=== PATIENT | female | born 1965 | race Caucasian/White ===

== ENCOUNTER → 2017-09-12 08:21 | Outpatient (CLI) | payer OTHER, SELFPAY ==
--- NOTE | 2017-09-12 08:24 | BI_ITS ---
MAMMOGRAPHY - BILATERAL SCREENING 3-D SHAWN SYNTHESIS REASON FOR EXAM: Female, 51 years old. Bilateral Screening 3-D tomosynthesis PERTINENT HISTORY: No significant family history. TECHNIQUE: 2-D mammograms and 3-D Shawn synthesis of the breast (s) were performed. CAD was performed. COMPARISON: February 12, 2016. FINDINGS: The breast composition is composed of scattered fibroglandular density. No dense spiculated masses or suspicious clustered microcalcifications are identified. No architectural distortion is identified. There is no skin thickening or retraction. There has been no significant change since the prior study. BI/SCREENING MAMM (CAD), BILAT IMPRESSION: No mammographic signs of malignancy. Routine yearly mammograms recommended. ASSESSMENT CATEGORY: BIRADS Category 1: Negative. A letter regarding these results will be sent to the patient by the facility within 30 days. FOLLOW UP RECOMMENDATION: Yearly follow up mammogram recommended. (A) Approximately 10% of breast cancers are not detected by mammography. A normal mammogram should not delay biopsy of a clinically suspicious abnormality. Electronically Signed: Tian Sun MD at 9:58 EDT , Service support ,
== END ==
PROVIDERS: Family Provider Student in an Organized Health Care Education/Training Program; PCP Student in an Organized Health Care Education/Training Program; Visit Provider Student in an Organized Health Care Education/Training Program
DX: Z12.31 Encounter for screening mammogram for malignant neoplasm of breast (principal)
CPT/HCPCS: 77063; 77067

== ENCOUNTER 2018-01-19 21:50 | Emergency (ER) | payer OTHER, SELFPAY ==
[2018-01-19 21:51] VITALS: BP 137/72; PULSE 73; RESP 15; TEMP 35.9; O2SAT 98; BMI 31.6
[2018-01-19] MEDS: Nitrofurantoin Macrocrystals 100 MG Capsule PO (22:23)
[2018-01-19] MEDS: Ibuprofen 600 MG Tablet PO (22:23)
[2018-01-19 22:38] LABS: Mucous, Urine 0 SEEN /hpf (<or=2+)
[2018-01-19 22:42] LABS: Color, Urine Amber (Yellow); Glucose, Dipstick Normal (Normal); Ketone-Dipstick 5 mg/dl (Negative); Leukocyte Esterase-Dipstick 500 /ul (Negative); Nitrite-Dipstick Negative (Negative); Occult Blood-Urine 250 /ul (Negative); Protein-Dipstick 100 mg/dl (Negative); Specific Gravity, Urine 1.025 (1.002-1.030); Urine Clarity Cloudy (Clear); Urine Urobilinogen 1 mg/dl (Normal); Urine pH 6.5 (5.0 - 8.0)
[2018-01-19 22:45] LABS: Urine Bilirubin Dipstick 1 mg/dL (Negative)
[2018-01-19 22:53] LABS: Bacteria RARE /hpf (None Seen); Red Blood Cells-Urine > 100 SEEN /hpf (0-5); Squamous Epithelial Cells - UA 0-5 SEEN /hpf (5-10); White Blood Cells >100 SEEN /hpf (0-5)
--- NOTE | 2018-01-19 23:13 | ED.VISSUMM ---
- ER Visit Summary Date of Service: 01/19/18 Chief Complaint: UTI History of Present Illness: The patient is a 52 F with GI symptoms that started this evening. Patient reports suprapubic pain, dysuria, hematuria, and frequency. She attributes it to decreased oral fluid intake today. She had similar symptoms in the past with UTIs. She is not currently on antibiotics. She denies fever or systemic symptoms. No other associated symptoms like back pain. Denies vaginal bleeding or discharge. Physical Examination: Afebrile and vital signs unremarkable. Patient appears uncomfortable but not toxic or in distress. Heart regular. Lungs clear. Abdomen is tender in the suprapubic region. Back and CVAs are nontender. Skin appears normal. Test Results: Urinalysis shows elevated leukocyte esterase, elevated white cells and elevated red cells, both over 100. Culture pending. Patient declined hCG testing. Emergency Department Course and Treatment: Patient treated with Macrobid and Motrin while awaiting results. Urinalysis does suggest infection. Culture pending. I advised the patient that there are other causes of hematuria. Patient does not have pain or symptoms consistent with a kidney stone. I advised that we will treat with Macrobid. Follow-up with primary care to check culture results. She will need to document resolution of her symptoms and findings. I advised the patient that if her hematuria persists, she will need a further outpatient evaluation. Patient will return for any new or worsening issues. Return if unable to take her medications. Return for signs and symptoms of sepsis. Treatment Plan: As above Disposition: Discharged Impression: 1. UTI, cystitis This note was generated with [employer] dictation software. It may contain incorrect words, spelling, and punctuation that were not noted in review of the chart prior to signing ED Disposition - Plan for ED Patient: Chief Complaint: Complaint Referrals: Gurdeep Jackson DO [Primary Care Provider] -
--- NOTE | 2018-01-19 23:17 | ED.DEP ---
ED Disposition - Plan for ED Patient: Chief Complaint: Complaint Instructions: ED UTI Cystitis Female Prescriptions: Nitrofurantoin Macrocrystals [Macrobid] 100 mg PO Q12 #14 cap Referrals: Gurdeep Jackson DO [Primary Care Provider] -
== END 2018-01-19 23:26 | disposition home or self-care (01) ==
LOC: ED 22:22
PROVIDERS: Emergency Provider Emergency Medicine; Family Provider Student in an Organized Health Care Education/Training Program; PCP Student in an Organized Health Care Education/Training Program
DX: N30.91 Cystitis, unspecified with hematuria (principal); K21.9 Gastro-esophageal reflux disease without esophagitis; Z79.899 Other long term (current) drug therapy; Z87.440 Personal history of urinary (tract) infections
CPT/HCPCS: 81001; 87086; 87088; 87186; 99283

== ENCOUNTER → 2018-09-21 08:05 | Outpatient (CLI) | payer OTHER, SELFPAY ==
--- NOTE | 2018-09-21 08:08 | BI_ITS ---
MAMMOGRAPHY - BILATERAL SCREENING 3-D TOMOSYNTHESIS REASON FOR EXAM: Female, 52 years old. Bilateral Screening 3-D tomosynthesis PERTINENT HISTORY: No significant family history. TECHNIQUE: 2-D mammograms and 3-D Tomosynthesis of the breast (s) were performed. CAD was performed. COMPARISON: September 12, 2017. FINDINGS: The breast composition is composed of scattered fibroglandular density. Scattered benign calcifications are seen. No dense spiculated masses or suspicious microcalcifications are identified. No architectural distortion is identified. There is no skin thickening or retraction. There has been no significant change since the prior study. BI/SCREENING MAMM (CAD), BILAT IMPRESSION: No mammographic signs of malignancy. Routine yearly mammograms recommended. ASSESSMENT CATEGORY: BIRADS Category 1: Negative. A letter regarding these results will be sent to the patient by the facility within 30 days. FOLLOW UP RECOMMENDATION: Yearly follow up mammogram recommended. (A) Approximately 10% of breast cancers are not detected by mammography. A normal mammogram should not delay biopsy of a clinically suspicious abnormality. Electronically Signed: Tian Sun MD at 9:28 EDT , Service support ,
== END ==
PROVIDERS: Family Provider Student in an Organized Health Care Education/Training Program; PCP Student in an Organized Health Care Education/Training Program; Referring Provider Student in an Organized Health Care Education/Training Program; Visit Provider Student in an Organized Health Care Education/Training Program
DX: Z12.31 Encounter for screening mammogram for malignant neoplasm of breast (principal)
CPT/HCPCS: 77063; 77067

== ENCOUNTER → 2018-10-12 14:38 | Outpatient (CLI) | payer SELFPAY ==
--- NOTE | 2018-10-12 14:49 | CT_ITS ---
STUDY: CARDIAC CALCIUM SCORING - CT CHEST REASON FOR EXAM: Female, 52 years old. Family history of heart disease. RADIATION DOSAGE (If Supplied By Facility): CTDIvol = ( 12.19 ) mGy, DLP = ( 170.66 ) mGycm TECHNIQUE: Axial non-enhanced images were acquired through the heart for the sole purpose of measuring coronary artery calcium. Individualized dose optimization techniques were used for this CT. COMPARISON: Chest, April 16, 2014. FINDINGS: This portion of the report is being generated solely for the evaluation of noncoronary artery structures which have been assessed on plain another report. The visualized lungs are well expanded and free of infiltrate or mass. The heart is normal in size. Normal pericardium. Normal visualized mediastinum and alexis. Normal visualized pulmonary arteries and thoracic aorta. Minimal degenerative changes of the thoracic spine. CT/Limited Chest CT w/CCTA IMPRESSION: No visualized anatomic abnormality. Electronically Signed: Vlad Boggs DO at 16:55 EDT Tel [phone], Service support ,
[2018-10-12 14:53] VITALS: BP 123/57; PULSE 51; RESP 16; O2SAT 96; BMI 32.0
--- NOTE | 2018-10-13 11:30 | CA.SCORE ---
Calcium Scoring Date of Study:: 10/13/18 Coronary Calcium Scoring: High-resolution Computed Tomographic imaging of the chest was performed on [10/12/2018 ], with particular attention paid to the coronary arteries. Images from the examination were analyzed for the presence and extent of coronary artery calcification , using coronary calcium quantification software. The patient tolerated the procedure well and there were no complications. The results of the coronary calcification analysis are provided below. - Findings Left Main (LM): 0 Left Anterior Descending (LAD): 0 Left Circumflex (LCX): 0 Right Coronary Artery (RCA): 0 Total Agatston Score: 0 Percentile Rankin - Conclusion Calcium Scoring Interpretation: Calcium Score Interpretation 0 No identifiable atherosclerotic plaque. Very low cardiovascular disease risk. <5% chance of presence coronary artery disease A Negative Examination 1-10 Minimal Plaque burden. Significant coronary artery disease very unlikely. 11-100 Mild plaque burden. Likely mild or minimal coronary atherosclerosis. 101-400 Moderate plaque burden Moderate non-obstructive coronary artery disease highly likely. Over 400 Extensive plaque burden. High likelihood of at least one significant coronary stenosis (>50% diameter) Calcium Score: 0 Negative Examination - The above is suggestive of no significant atherosclerotic plaquing. Full assessment of coronary risk factors involves consideration of other risk factors as well.
== END ==
PROVIDERS: Family Provider Student in an Organized Health Care Education/Training Program; PCP Student in an Organized Health Care Education/Training Program; Referring Provider Student in an Organized Health Care Education/Training Program; Visit Provider Student in an Organized Health Care Education/Training Program
DX: Z13.6 Encounter for screening for cardiovascular disorders (principal)
CPT/HCPCS: 75571; 76380

== ENCOUNTER → 2022-02-11 | Outpatient (CLI) | payer OTHER, SELFPAY ==
[2022-03-01 11:55] LABS: HPV APTIMA, High Risk Negative
== END | disposition home or self-care (01) ==
LOC: LABSPEC 09:31
PROVIDERS: PCP Student in an Organized Health Care Education/Training Program; Visit Provider Student in an Organized Health Care Education/Training Program
DX: Z12.4 Encounter for screening for malignant neoplasm of cervix (principal)
CPT/HCPCS: 87624; 88175; G0145

== ENCOUNTER 2022-07-21 14:31 | Emergency (ER) | payer OTHER, SELFPAY ==
[2022-07-21 14:32] VITALS: BP 127/92; PULSE 72; RESP 16; TEMP 36.2; O2SAT 100; BMI 30.9
--- NOTE | 2022-07-21 16:43 | EX.ED.DYSGE1 ---
HPI History of Present Illness Chief Complaint: General Illness Narrative Narrative: 56-year-old female with nausea, vomiting, diarrhea x3 days. She reports that her son had this prior to her getting it. He was tested for COVID, influenza, RSV, strep. These were all negative. He was given Zofran and recovered. Mother states that she is able to hold down some fluids because she was taking his Zofran yesterday. Today she she decided not to use the Zofran and has been nauseous all day. She is able to hold down some fluids but she is not drinking as much because she is nauseous. She does admit to diarrhea as well. She states has had 3 episodes of diarrhea in the emergency room. No black or bloody stools. Patient does not have abdominal pain. She is not coughing or short of breath. PFSH PFS Home Medications cholecalciferol (vitamin D3) 25 mcg (1,000 unit) tablet (Vitamin D3) 1,000 unit PO DAILY 04/22/14 [History Last Taken Unknown] multivitamin with folic acid 400 mcg tablet (Thera) 1 tab PO DAILY 04/22/14 [History Last Taken Unknown] omeprazole 20 mg capsule,delayed release 04/22/14 [History Last Taken Unknown] duloxetine 60 mg capsule,delayed release 60 mg PO DAILY 01/19/18 [History Last Taken Unknown] nitrofurantoin monohydrate/macrocrystals 100 mg capsule 100 mg PO Q12 #14 caps 01/19/18 [Rx Last Taken Unknown] omeprazole 20 mg capsule,delayed release 20 mg PO DAILY 01/19/18 [History Last Taken Unknown] pravastatin 10 mg tablet 10 mg PO DAILY 01/19/18 [History Last Taken Unknown] spironolactone 100 mg tablet 100 mg PO DAILY 01/19/18 [History Last Taken Unknown] famotidine 10 mg tablet (Pepcid AC) 10 mg PO BID #10 tabs 07/21/22 [Rx Last Taken Unknown] ondansetron 4 mg disintegrating tablet 4 mg PO Q8H PRN PRN Nausea #14 tabs 07/21/22 [Rx Last Taken Unknown] Allergy/AdvReac Type Severity Reaction Status Date / Time No Known Allergies Allergy Verified 07/21/22 14:34 Social History Smoking Status: Never smoker ROS ROS ED Constitutional Constitutional ED: Reports chills and fever(s) Eyes Eyes: Denies change in vision or diplopia ENT ENT ED: Denies rhinorrhea or sore throat Cardiovascular Cardiovascular: Denies chest pain or palpitations Respiratory/Chest Respiratory/Chest: Denies cough or dyspnea Gastrointestinal Gastrointestinal: Reports diarrhea, nausea and vomiting Genitourinary Genitourinary ED: Denies dysuria or hematuria Musculoskeletal Musculoskeletal: Reports myalgias Integumentary Denies abscess or Abrasions Neurologic Neurologic: Reports headache(s); Denies paresthesias Psychiatric Psychiatric: Denies anxiety or depression EXAM Physical Exam Const Vital Signs: 07/21/22 14:32 Temperature 97.1 F L Temperature Source Temporal Pulse Rate 72 Respiratory Rate 16 Blood Pressure 127/92 H Blood Pressure Mean 103 Pulse Ox 100 Oxygen Delivery Method Room Air Positive well nourished General Appearance ED: NAD; Negative for pallor HEENT Reports moist mucous membranes Eyes PERRL Chest Wall inspection of chest normal and palpation of chest normal Resp normal respiratory effort and clear to auscultation bilaterally Auscultation: Negative for rales, rhonchi or wheezes Cardio regular rate and regular rhythm GI normal to inspection, nondistended, normoactive bowel sounds Palpation: Negative for soft or tender Neuro oriented x3 and CN's II-XII intact bilaterally Sensorium / Orientation: alert Motor Exam: strength 5/5 throughout and general weakness Psych mental status grossly normal Skin no rashes or lesions noted and no wounds General Skin Exam: Negative for jaundice or pallor MDM MDM MDM Narrative Medical decision making narrative: Patient presented with nausea, vomiting, diarrhea. Most likely source is viral etiology given her son just had this. She was taking his Zofran but decided not to do that today and has had difficulty drinking fluids. She does complain of fever, chills over the last 3 days. She also complains of diarrhea. Patient states that her primary care physician sent her here for IV fluids although after examining her she does not physically look dehydrated. Her heart rate is 72, her blood pressure is 127/92. She is afebrile with a temperature of 97.1 and she is 100% on room air. After discussion with she and her they do want to try oral Zofran and Pepcid initially. She will also receive a shot of Toradol. If she does not improve as discussed we will get IV access and give her fluids and more medication. Patient reevaluated she is feeling improved. At this point I think she stable for discharge home with [facility]. She is counseled to Tylenol alternate Tylenol and ibuprofen as needed. She is counseled to drink plenty of water. She was given Pepcid for home as well. Return precautions discussed. Impression: 1. Nausea/vomiting 2. Diarrhea 3. Viral syndrome Lab Data Labs: Laboratory Results - last 24 hr 07/21/22 17:33 Urine Color Yellow Urine Clarity Clear Urine pH 6.0 Ur Specific [place] 1.020 Urine Protein 100 H Urine Glucose (UA) Normal Urine Ketones 50 H Urine Occult Blood 150 H Urine Nitrite Negative Urine Bilirubin Negative Urine Urobilinogen Normal Ur Leukocyte Esterase 100 H Urine RBC 0 SEEN Urine WBC 5-10 SEEN Ur Squamous Epith Cells 0 SEEN Urine Bacteria RARE Urine Mucus 0 SEEN Discharge Plan Triage Chief Complaint: General Illness ED Provider: John Hartmann Dx/Rx/DC Orders Instructions: ED Gastroenteritis, Viral (Adult), ED Viral Syndrome (Adult) Prescriptions: New ondansetron 4 mg tablet,disintegrating 4 mg PO Q8H PRN PRN (Reason: Nausea) Qty: 14 0RF famotidine [Pepcid AC] 10 mg tablet 10 mg PO BID Qty: 10 0RF No Action omeprazole 20 MG capsule,delayed release(DR/EC) Label Comments: multivitamin with folic acid [Thera] 1 TABLET tablet 1 tab PO DAILY cholecalciferol (vitamin D3) [Vitamin D3] 1,000 UNIT tablet 1,000 unit PO DAILY spironolactone 100 MG tablet 100 mg PO DAILY Label Comments: pravastatin 10 MG tablet 10 mg PO DAILY Label Comments: omeprazole 20 MG capsule,delayed release(DR/EC) 20 mg PO DAILY Label Comments: duloxetine 60 MG capsule 60 mg PO DAILY nitrofurantoin monohyd/m-cryst 100 MG capsule 100 mg PO Q12 Qty: 14 0RF Stand Alone Forms: ED Work / School Excuse Primary Care Provider: Gurdeep Jackson Referrals: Gurdeep Jackson DO [Primary Care Provider] - Disposition Disposition: Home, Self Care Discharge Date/Time: 07/21/22 19:31
[2022-07-21] MEDS: Ondansetron ODT 4 MG Tablet PO (16:48)
[2022-07-21] MEDS: Famotidine 20 MG Tablet PO (16:48)
[2022-07-21] MEDS: Ketorolac 15 MG/ML Vial IM (16:55)
[2022-07-21 17:38] LABS: Mucous, Urine 0 SEEN /hpf (<or=2+); Red Blood Cells-Urine 0 SEEN /hpf (0-5); Squamous Epithelial Cells - UA 0 SEEN /hpf (5-10)
[2022-07-21 17:49] LABS: Color, Urine Yellow (Yellow); Glucose, Dipstick Normal (Normal); Ketone-Dipstick 50 mg/dl (Negative); Leukocyte Esterase-Dipstick 100 /ul (Negative); Nitrite-Dipstick Negative (Negative); Occult Blood-Urine 150 /ul (Negative); Protein-Dipstick 100 mg/dl (Negative); Urine Bilirubin Dipstick Negative (Negative); Urine Clarity Clear (Clear); Urine Urobilinogen Normal (Normal)
[2022-07-21 18:12] LABS: Bacteria RARE /hpf (None Seen); White Blood Cells 5-10 SEEN /hpf (0-5)
== END 2022-07-21 19:31 | disposition home or self-care (01) ==
PROVIDERS: Emergency Provider Student in an Organized Health Care Education/Training Program; PCP Student in an Organized Health Care Education/Training Program; Visit Provider Student in an Organized Health Care Education/Training Program
DX: R11.2 Nausea with vomiting, unspecified (principal); R19.7 Diarrhea, unspecified; B34.9 Viral infection, unspecified
CPT/HCPCS: 99281 ×2; 81001; 99283

== ENCOUNTER → 2023-06-28 | Outpatient (CLI) | payer OTHER, SELFPAY ==
--- OUTSIDE RECORDS SUMMARY | 2023-06-28 11:52 | XMS RPT_ITS | CCD ---
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 Name Role Phone Gurdeep Pascual DO Primary Care Provider DEYANIRA WHITE Attending Unavailable DEYANIRA WHITE Referring Unavailable GURDEEP PASCUAL Primary Care Unavailable DEYANIRA WHITE Attending Unavailable GURDEEP PASCUAL Primary Care Unavailable GURDEEP PASCUAL Primary Care Unavailable BARBARA ERWIN Attending Unavailable GURDEEP PASCUAL Primary Care Unavailable MERCEDES COOPER Referring Unavailable BARBARA ERWIN Attending Unavailable Gurdeep Pascual DO Primary Care Provider GURDEEP PASCUAL Primary Care Unavailable LISA CID Referring Unavailable PASCUALGURDEEP Primary Care Unavailable PASCUALGURDEEP Primary Care Unavailable MARTIR ARANGO Attending Unavailable VAMSITOCRISTOPHER, GAVIOTA Referring Unavailable PASCUALGURDEEP Primary Care Unavailable VETORUTHTZ, GAVIOTA Referring Unavailable PASCUALGURDEEP Primary Care Unavailable VETORUTHTZ, GAVIOTA Attending Unavailable VAMSITOCRISTOPHER, GAVIOTA Referring Unavailable PASCUAL GURDEEP Keerthi Primary Care Unavailable VETOVITZ, GAVIOTA Referring Unavailable PASCUAL, GURDEEP Pendleton Primary Care Unavailable MARTIR ARANGO Attending Unavailable VAMSITOCRISTOPHER, GAVIOTA Referring Unavailable PASCUALGURDEEP Primary Care Unavailable MARTIR ARANGO Attending Unavailable VETOCRISTOPHER, GAVIOTA Referring Unavailable PASCUALGURDEEP Primary Care Unavailable GURDEEP PASCUAL Primary Care Unavailable VAMSITOCRISTOPHER, GAVIOTA Attending Unavailable GURDEEP PASCUAL Primary Care Unavailable MARTIR ARANGO Attending Unavailable VETOVITZ, GAVIOTA Referring Unavailable PASCUAL GURDEEP Keerthi Primary Care Unavailable MARTIR ARANGO Attending Unavailable VETOVITZ, GAVIOTA Referring Unavailable PASCUAL, GURDEEP L Primary Care Unavailable MARTIR ARANGO Attending Unavailable VETOVITZ, GAVIOTA Referring Unavailable PASCUAL, GURDEEP L Primary Care Unavailable MARTIR ARANGO Attending Unavailable VETOVITZ, GAVIOTA Referring Unavailable PASCUAL, GURDEEP L Primary Care Unavailable VETOVITZ, GAVIOTA Referring Unavailable PASCUAL, GURDEEP L Primary Care Unavailable VETORUTHTZ, GAVIOTA Attending Unavailable VETOVITZ, GAVIOTA Referring Unavailable PASCUAL, GURDEEP L Primary Care Unavailable ZURAWICK, MERCEDES Attending Unavailable PASCUAL, GURDEEP L Primary Care Unavailable ZURAWICK, MERCEDES Referring Unavailable PASCUAL, GURDEEP L Primary Care Unavailable ZURAWICK, MERCEDES Referring Unavailable PASCUAL, GURDEEP L Primary Care Unavailable DEYANIRA WHITE Referring Unavailable PASCUAL, GURDEEP L Primary Care Unavailable PASCUAL, GURDEEP L Primary Care Unavailable PASCUAL, GURDEEP L Primary Care Unavailable DANIEL BHAKTA Referring Unavailable PASCUAL, GURDEEP L Primary Care Unavailable PASCUAL, GURDEEP L Primary Care Unavailable PASCUAL, GURDEEP L Referring Unavailable PASCUAL, GURDEEP L Primary Care Unavailable Allergies Allergy Classification Reported Allergen(s) Allergy Type Date of Onset Reaction(s) Facility (20 sources) Adhesive Tape; Translations: [ADHESIVE TAPE (ROSINS)] Propensity to adverse reactions 08-16-19 06 Rash [facility] Work Phone: (20 sources) nickel; Translations: [NICKEL] Drug Allergy 12-27-19 20 Itching, Rash [facility] (20 sources) Shellfish; Translations: [SHELLFISH CONTAINING PRODUCTS] Drug Allergy 12-27-19 20 GI Upset, Intolerance [facility] (20 sources) Monosodium Glutamate (Msg); Translations: [MONOSODIUM GLUTAMATE (MSG)] Food Allergy 12-27-19 20 Diarrhea, GI Upset, Intolerance [facility] (20 sources) Sulfamethoxazole / Trimethoprim; Translations: [SULFAMETHOXAZOLE-TR IMETHOPRIM] Drug Allergy 06-09-19 GI Upset, Other: See Comments [facility] Medications Current Medications Medication Drug Class(es) Dates Sig (Normalized) Sig (Original) cephalexin 500 mg oral capsule (3 sources) Cephalosporin Antibacterial Start: 06-10-2022 End: 06-17-2022 take 1 capsule by mouth three times daily cephALEXin (KEFLEX) 500 mg capsule Take 1 capsule by mouth three times daily for 7 days. 21 capsule 0 06/10/2022 06/17/2022 Active Completed/Discontinued Medications Medication Drug Class(es) Dates Sig (Normalized) Sig (Original) 24 hr buPROPion hydrochloride 300 mg extended release oral tablet (20 sources) Aminoketone Start: 04-06-2020 take 1 tablet by mouth once daily buPROPion XL (WELLBUTRIN XL) 300 mg 24 hr tablet Take 1 tablet by mouth once daily. 0 04/06/2020 Active Problems Active Problems Problem Classification Problem Date Documented Date Episodic/Chronic Disorders of lipid metabolism (20 sources) Mixed hyperlipidemia; Translations: [Mixed hyperlipidemia] Onset: 08-09-2016 08-09-2016 Chronic Esophageal disorders (20 sources) Gastroesophageal reflux disease without esophagitis; Translations: [Gastro-esophageal reflux disease without esophagitis] Onset: 08-14-2017 08-14-2017 Chronic Genitourinary symptoms and ill-defined conditions (7 sources) Increased frequency of urination; Translations: [Frequency of micturition] Onset: 10-20-2022 Episodic Joint disorders and dislocations; trauma-related (20 sources) Derangement of knee; Translations: [Other internal derangements of right knee] Onset: 08-14-2017 08-14-2017 Chronic Melanomas of skin (1 source) History of malignant melanoma of the skin; Translations: [Personal history of malignant melanoma of skin] Episodic Mood disorders (20 sources) Chronic depression; Translations: [Chronic depression] Onset: 02-13-2018 02-13-2018 Chronic Nutritional deficiencies (20 sources) Vitamin D deficiency; Translations: [Vitamin D deficiency, unspecified] Onset: 10-29-2021 Chronic Other and unspecified benign neoplasm (1 source) Multiple benign melanocytic nevi ; Translations: [Melanocytic nevi of unspecified upper limb, including shoulder] Episodic Other hereditary and degenerative nervous system conditions (1 source) Restless legs; Translations: [Restless legs syndrome] Chronic Other liver diseases (20 sources) Steatosis of liver; Translations: [Fatty (change of) liver, not elsewhere classified] Onset: 08-09-2016 08-09-2016 Chronic Other liver diseases (1 source) Abnormal levels of other serum enzymes; Translations: [Elevated liver enzymes] Onset: 05-09-2023 Episodic Other nervous system disorders (20 sources) Carpal tunnel syndrome of left wrist; Translations: [Carpal tunnel syndrome, left upper limb] Onset: 11-25-2019 11-25-2019 Chronic Other non-traumatic joint disorders (1 source) Pain of left wrist; Translations: [Pain in left wrist] 01-30-2023 Episodic Other nutritional; endocrine; and metabolic disorders (20 sources) Obese class I; Translations: [Obesity, unspecified] Onset: 08-09-2016 08-09-2016 Chronic Other nutritional; endocrine; and metabolic disorders (1 source) Hyperbilirubinemia; Translations: [Other disorders of bilirubin metabolism] Chronic Other nutritional; endocrine; and metabolic disorders (1 source) Other disorders of bilirubin metabolism; Translations: [Bilirubinemia] Onset: 10-20-2022 Chronic Other screening for suspected conditions (not mental disorders or infectious disease) (2 sources) Patient encounter status; Translations: [Encounter for screening for malignant neoplasm of colon] 04-21-2023 Episodic Superficial injury; contusion (1 source) Insect bite of finger; Translations: [Insect bite (nonvenomous) of right middle finger, initial encounter] Episodic Urinary tract infections (20 sources) Recurrent urinary tract infection; Translations: [Urinary tract infection, site not specified] Onset: 02-13-2018 02-13-2018 Episodic Past or Other Problems Problem Classification Problem Date Documented Da te Episodic/Chronic Abdominal pain (4 sources) Flank pain; Translations: [Unspecified abdominal pain] Onset: 01-04-2022 Episodic Biliary tract disease (20 sources) Chronic cholecystitis; Translations: [Chronic cholecystitis] Onset: 05-07-2014 05-07-2014 Episodic Fracture of upper limb (20 sources) Closed fracture of proximal left humerus; Translations: [Unspecified fracture of upper end of left humerus, initial encounter for closed fracture] Onset: 01-16-2023 01-11-2023 Episodic Other injuries and conditions due to external causes (1 source) Unspecified injury of left shoulder and upper arm, initial encounter; Translations: [Left upper arm injury, initial encounter] Onset: 12-26-2022 Episodic Results Test Name Value Interpretation Reference Range Facil ity Vital Signs Date Time Vital Sign Value Performing Clinician Faci lity 04-21-2023 11:40-0500 Body height 158 cm Mercedes Mitchell POWDER COAT PAINTER.MANAGER AUDIT Work Phone: [facility] 04-21-2023 11:40-0500 Body weight 83.83 kg Mercedes Mitchell POWDER COAT PAINTER.MANAGER AUDIT Work Phone: [facility] 04-21-2023 11:40-0500 Diastolic blood pressure 62 mm[Hg] Mercedes Mitchell POWDER COAT PAINTER.MANAGER AUDIT Work Phone: [facility] 04-21-2023 11:40-0500 Heart rate 59 /min Mercedes Mitchell POWDER COAT PAINTER.MANAGER AUDIT Work Phone: [facility] 04-21-2023 11:40-0500 Respiratory rate 14 /min Mercedes Mitchell POWDER COAT PAINTER.MANAGER AUDIT Work Phone: [facility] 04-21-2023 11:40-0500 SaO2% (BldA) [Mass fraction] 98 % Mercedes Mitchell POWDER COAT PAINTER.MANAGER AUDIT Work Phone: [facility] 04-21-2023 11:40-0500 Systolic blood pressure 118 mm[Hg] Mercedes Mitchell POWDER COAT PAINTER.MANAGER AUDIT Work Phone: [facility] 04-14-2023 13:21-0500 Body temperature 97.2 [degF] Lisa Praisler-Wood POWDER COAT PAINTER.MANAGER AUDIT Work Phone: [facility] 04-14-2023 13:21-0500 Body weight 84.19 kg Lisa Praisler-Wood POWDER COAT PAINTER.MANAGER AUDIT Work Phone: [facility] 04-14-2023 13:21-0500 Diastolic blood pressure 78 mm[Hg] Lisa Praisler-Wood POWDER COAT PAINTER.MANAGER AUDIT Work Phone: [facility] 04-14-2023 13:21-0500 Heart rate 73 /min Lisa Praisler-Wood POWDER COAT PAINTER.MANAGER AUDIT Work Phone: [facility] 04-14-2023 13:21-0500 Respiratory rate 18 /min Lisa Praisler-Wood POWDER COAT PAINTER.MANAGER AUDIT Work Phone: [facility] 04-14-2023 13:21-0500 SaO2% (BldA) [Mass fraction] 99 % Lisa Praisler-Wood POWDER COAT PAINTER.MANAGER AUDIT Work Phone: [facility] 04-14-2023 13:21-0500 Systolic blood pressure 123 mm[Hg] Lisa Praisler-Wood POWDER COAT PAINTER.MANAGER AUDIT Work Phone: [facility] 10-27-2022 09:48-0400 Body height 160 cm Deyanira Kovachik PA-C Work Phone: [facility] 10-27-2022 09:48-0400 Heart rate 62 /min Deyanira Kovachik PA-C Work Phone: [facility] 10-27-2022 09:48-0400 SaO2% (BldA) [Mass fraction] 99 % Deyanira Kovachik PA-C Work Phone: [facility] 10-20-2022 10:52-0400 Body height 160 cm Deyanira Kovachik PA-C Work Phone: [facility] 10-20-2022 10:52-0400 Heart rate 72 /min Deyanira Kovachik PA-C Work Phone: [facility] 10-20-2022 10:52-0400 SaO2% (BldA) [Mass fraction] 99 % Deyanira Kovachik PA-C Work Phone: [facility] 10-20-2022 07:38-0400 Body temperature 97.81 [degF] Lisa Praisler-Wood POWDER COAT PAINTER.MANAGER AUDIT Work Phone: [facility] 10-20-2022 07:38-0400 Body weight 82.1 kg Lisa Praisler-Wood POWDER COAT PAINTER.MANAGER AUDIT Work Phone: [facility] 10-20-2022 07:38-0400 Diastolic blood pressure 82 mm[Hg] Lisa Praisler-Wood POWDER COAT PAINTER.MANAGER AUDIT Work Phone: [facility] 10-20-2022 07:38-0400 Heart rate 74 /min Lisa Praisler-Wood POWDER COAT PAINTER.MANAGER AUDIT Work Phone: [facility] 10-20-2022 07:38-0400 Respiratory rate 14 /min Lisa Praisler-Wood POWDER COAT PAINTER.MANAGER AUDIT Work Phone: [facility] 10-20-2022 07:38-0400 SaO2% (BldA) [Mass fraction] 98 % Lisa Praisler-Wood POWDER COAT PAINTER.MANAGER AUDIT Work Phone: [facility] 10-20-2022 07:38-0400 Systolic blood pressure 126 mm[Hg] Lisa Praisler-Wood POWDER COAT PAINTER.MANAGER AUDIT Work Phone: [facility] 09-10-2022 10:24-0400 Body temperature 97 [degF] Krislyn Aberegg PA Work Phone: [facility] 09-10-2022 10:24-0400 Body weight 82.1 kg Krislyn Aberegg PA Work Phone: [facility] 09-10-2022 10:24-0400 Diastolic blood pressure 78 mm[Hg] Krislyn Aberegg PA Work Phone: [facility] 09-10-2022 10:24-0400 Heart rate 76 /min Krislyn Aberegg PA Work Phone: [facility] 09-10-2022 10:24-0400 Respiratory rate 21 /min Krislyn Aberegg PA Work Phone: [facility] 09-10-2022 10:24-0400 SaO2% (BldA) [Mass fraction] 98 % Krislyn Aberegg PA Work Phone: [facility] 09-10-2022 10:24-0400 Systolic blood pressure 118 mm[Hg] Krislyn Aberegg PA Work Phone: [facility] 01-04-2022 10:21-0400 Body height 160 cm Barbara Erwin POWDER COAT PAINTER.MANAGER AUDIT Work Phone: [facility] 01-04-2022 10:21-0400 Body weight 79.38 kg Barbara Erwin POWDER COAT PAINTER.MANAGER AUDIT Work Phone: [facility] 01-04-2022 10:21-0400 Diastolic blood pressure 62 mm[Hg] Barbara Erwin POWDER COAT PAINTER.MANAGER AUDIT Work Phone: [facility] 01-04-2022 10:21-0400 Systolic blood pressure 120 mm[Hg] Barbara Erwin POWDER COAT PAINTER.MANAGER AUDIT Work Phone: [facility] 10-29-2021 12:50-0400 Body height 158 cm Gurdeep Pascual DO Work Phone: [facility] 10-29-2021 12:50-0400 Body temperature 97 [degF] Gurdeep Pascual DO Work Phone: [facility] 10-29-2021 12:50-0400 Body weight 81.65 kg Gurdeep Pascual DO Work Phone: [facility] 10-29-2021 12:50-0400 Diastolic blood pressure 70 mm[Hg] Gurdeep Pascual DO Work Phone: [facility] 10-29-2021 12:50-0400 Heart rate 64 /min Gurdeep Pascual DO Work Phone: [facility] 10-29-2021 12:50-0400 Respiratory rate 16 /min Gurdeep Pascual DO Work Phone: [facility] 10-29-2021 12:50-0400 Systolic blood pressure 100 mm[Hg] Gurdeep Pascual DO Work Phone: [facility] 10-22-2021 18:59-0400 Body temperature 98.01 [degF] Brayan Fuller POWDER COAT PAINTER.MANAGER AUDIT Work Phone: [facility] 10-22-2021 18:59-0400 Body weight 82.46 kg Brayan Fuller POWDER COAT PAINTER.MANAGER AUDIT Work Phone: [facility] 10-22-2021 18:59-0400 Diastolic blood pressure 88 mm[Hg] Brayan Fuller POWDER COAT PAINTER.MANAGER AUDIT Work Phone: [facility] 10-22-2021 18:59-0400 Heart rate 79 /min Brayan Fuller POWDER COAT PAINTER.MANAGER AUDIT Work Phone: [facility] 10-22-2021 18:59-0400 Respiratory rate 20 /min Brayan Fuller POWDER COAT PAINTER.MANAGER AUDIT Work Phone: [facility] 10-22-2021 18:59-0400 SaO2% (BldA) [Mass fraction] 97 % Brayan Fuller POWDER COAT PAINTER.MANAGER AUDIT Work Phone: [facility] 10-22-2021 18:59-0400 Systolic blood pressure 110 mm[Hg] Brayan Fuller POWDER COAT PAINTER.MANAGER AUDIT Work Phone: [facility] Encounters Encounter Date Encounter Type Care Provider Facility Start: 05-24-2023 ambulatory Gurdeep bellamy Work Phone: Internal Medicine [facility] Start: 05-11-2023 End: 05-12-2023 ambulatory DEYANIRA WHITE Facility:[facility] Start: 05-09-2023 End: 05-09-2023 [facility] Start: 04-27-2023 ambulatory Deyanira White PA-C Work Phone: [facility] Procedures Date Procedure Procedure Detail Performing Clinician Start: 04-25-2023 Lipid 1996 panel - S bri or Plasma Deyanira White PA-C Work Phone: Start: 04-14-2023 Urnls dip stick/tabl et rgnt auto w/o microscopy Lisa Cid POWDER COAT PAINTER.MANAGER AUDIT Work Phone: Start: 03-25-2023 INFLUENZA VACCINE, A GE 6 MO - 64 YR, QUADRIVALENT (AFLURIA, FLULAVAL, FLUZONE) Herson Landers MD Work Phone: Start: 01-30-2023 Radex shoulder compl ete minimum 2 views Gaviota Gonsalves PA-C Work Phone: Start: 01-16-2023 Radex shoulder compl ete minimum 2 views Gaviota DIOR-Kelly Work Phone: Start: 01-02-2023 Radex shoulder compl ete minimum 2 views Gaviota DIOR-Kelly Work Phone: Start: 10-27-2022 Urnls dip stick/tabl et rgnt auto w/o microscopy Deyanira White PA-C Work Phone: Start: 10-20-2022 Urnls dip stick/tabl et rgnt auto w/o microscopy Lisa Cid POWDER COAT PAINTER.MANAGER AUDIT Work Phone: Start: 09-10-2022 Urnls dip stick/tabl et rgnt auto w/o microscopy Klarissa Chatterjee POWDER COAT PAINTER.MANAGER AUDIT Work Phone: Start: 01-04-2022 Urnls dip stick/tabl et rgnt auto w/o microscopy Barbara Erwin POWDER COAT PAINTER.MANAGER AUDIT Work Phone: Start: 01-01-2022 Lipid 1996 panel - S bri or Plasma Gaviota Gonsalves PA-C Work Phone: Start: 05-06-2021 Mammography Mercedes Terri smithick POWDER COAT PAINTER.[facility] Work Phone: Plan of Treatment Date Care Activity Detail Author Start: 04-25-2028 Lipid 1996 panel - S bri or Plasma Lipid Screening [facility] Start: 04-25-2028 Lipid panel Lipid Screening [facility] Start: 01-01-2027 Lipid 1996 panel - S bri or Plasma Lipid Screening [facility] Start: 01-01-2027 LIPID SCREEN LIPID SCREEN [facility] Start: 05-22-2026 Screening for malign ant neoplasm of colon [facility] Start: 04-25-2026 Diabetes Screening Diabetes Screenin [facility] Start: 10-20-2025 DIABETES SCREEN DIABETES SCREEN [facility] Start: 10-20-2025 Diabetes Screening Diabetes Screenin [facility] Start: 02-17-2025 LIPID SCREEN LIPID SCREEN [facility] Start: 07-28-2025 DIABETES SCREEN DIABETES SCREEN [facility] Start: 04-21-2024 Covid-19 Vaccine ( season) Covid-19 Vaccine () [facility] Immunizations Immunization Date Immunization Notes Care Provider Marilynn bartlettprincess 03-25-2023 influenza, injectabl e, quadrivalent, contains preservative Immunization Sandor Work Phone: [facility] 03-25-2023 influenza virus vaccine, unspecified formulation Xr Mob Work Phone: [facility] 03-23-2022 influenza, injectabl e, quadrivalent, contains preservative Gurdeep Pascual DO Work Phone: [facility] Work Phone: 03-23-2022 influenza virus vaccine, unspecified formulation Gaviota Gonsalves PA-C Work Phone: [facility] 04-26-2021 zoster vaccine recombinant Mercedes Zurawick POWDER COAT PAINTER.[facility] Work Phone: [facility] Work Phone: 04-07-2021 influenza, injectabl e, quadrivalent, contains preservative Mercedes Zurawick POWDER COAT PAINTER.[facility] Work Phone: [facility] Work Phone: 02-22-2021 zoster vaccine recombinant Mercedes Zurawick POWDER COAT PAINTER.[facility] Work Phone: [facility] 04-06-2020 influenza, injectabl e, quadrivalent, contains preservative Mercedes Zurawick POWDER COAT PAINTER.[facility] Work Phone: [facility] Work Phone: 02-27-2019 influenza, injectabl e, quadrivalent, contains preservative Mercedes Zurawick POWDER COAT PAINTER.[facility] Work Phone: [facility] Work Phone: 02-13-2018 influenza, injectabl e, quadrivalent, contains preservative Mercedes Zurawick POWDER COAT PAINTER.[facility] Work Phone: [facility] Work Phone: 04-07-2017 influenza, injectabl e, quadrivalent, contains preservative Mercedes Zurawick POWDER COAT PAINTER.[facility] Work Phone: [facility] Work Phone: 02-09-2016 influenza, injectabl e, quadrivalent, contains preservative Mercedes Zurawick POWDER COAT PAINTER.[facility] Work Phone: [facility] Work Phone: 05-05-2014 TD(adult) unspecifie d formulation Mercedes Zurawick POWDER COAT PAINTER.[facility] Work Phone: [facility] 05-05-2014 tetanus and diphther ia toxoids, adsorbed, preservative free, for adult use (2 Lf of tetanus toxoid and 2 Lf of diphtheria toxoid) Mercedes Zurawick POWDER COAT PAINTER.[facility] Work Phone: [facility] Work Phone: Payers Date Payer Category Payer Unknown [facility] [employer] [id number] 2018-Present [phone] [address] [place] [address] [facility] [id number] 2018 Unknown [id number] 2018 Unknown [id number] Social History Date Type Detail Facility Start: 06-23-2017 End: 09-10-2022 Tobacco smoking status NHIS Never smoked tobacco [facility] Start: 07-04-2021 End: 04-21-2023 Alcohol intake Current non-drinker of alcohol (finding) [facility] Start: 03-18-2020 End: 07-09-2021 History SDOH Alcohol Frequency 1 [facility] Start: 07-09-2021 History SDOH Social Connections Phone 5 [facility] Start: 07-09-2021 History SDOH Social Connections Get Together 2 [facility] Start: 07-09-2021 History SDOH Social Connections Confucianism 3 [facility] Start: 09-18-2019 Education 20 [facility] Start: 1965 Sex Assigned At Female [facility] Start: 10-12-2021 End: 01-04-2022 Exposure to SARS-CoV-2 (event) Not sure [facility] Start: 06-23-2017 End: 09-10-2022 Tobacco use and exposure Smokeless tobacco non-user [facility] Start: 07-08-2021 End: 10-27-2022 History of Social function [facility] Start: 07-08-2021 End: 10-27-2022 Social connection and isolation panel [facility] Do you belong to any clubs or organizations such as nondenominational groups, unions, fraHidden Radio or athletic groups, or school groups? Yes [facility] Are you now , , , , never or living with a partner? [facility] How often to you hav e a drink containing alcohol? Never [facility] Average Number of Drinks Not on file [facility] Do you feel stress - tense, restless, nervous, or anxious, or unable to sleep at night because your mind is troubled all the time - these days [OSQ] To some extent [facility] (I/We) worried wheth er (my/our) food would run out before (I/we) got money to buy more. Never true [facility] In the past 12 month s, was there a time when you were not able to pay the mortgage or rent on time? No [facility] Start: 01-08-2019 Gender identity Identifies as female gender (finding) [facility] Start: 01-08-2019 Sexual orientation Heterosexual (amirah nichole) [facility] Clinical Notes 06-23-2017 to 05-24-2023 Mercedes Mitchell, МАРИЯ.MANAGER AUDIT - 04/21/2023 11:20 AM ESTTelephone Encounter - Beth Dodson RN - 04/20/2023 8:26 AM Martir Cordova PT - 04/17/2023 12:16 PM ESTPatient Instructions Note Date & Type Note Facility 05-24-2023 Note Patient Outreach (IN [facility]) JOHNNY HOBBS ([id number]) 1965 F Date Time Provider Department 05/24/23 GURDEEP PASCUAL During your visit today, we recorded the following information about you: Allergies As of Date: 05/24/2023 Noted Allergy Reaction ADHESIVE TAPE (ROSINS) 08/15/2005 2 - Rash BACTRIM (SULFAMETHOXAZOLE-TRIMETH* 023 8 - GI Upset 14 - Other: See Comments Comments: dizziness MONOSODIUM GLUTAMATE (MSG) 12/27/2019 6 - Diarrhea 8 - GI Upset 5 - Intolerance NICKEL 12/27/2019 9 - Itching 2 - Rash SHELLFISH CONTAINING PRODUCTS 12/27/2019 8 - GI Upset 5 - Intolerance Date Reviewed: 04/21/2023 Reviewed by: Mercedes Mitchell APRN.MANAGER AUDIT - Fully Assessed Visit Diagnosis:Encounter for screening mammogram for breast cancer [Z12.31] Order(s):[facility]CRE[facility] [[id number]] Order #: [id number] FUTURE Prescriptions as of 05/29/2023 - pravastatin (PRAVACHOL) 40 mg tablet Take 1 tablet by mouth daily at bedtime. - omeprazole (PRILOSEC) 20 mg capsule Take 1 capsule by mouth once daily. - spironolactone (ALDACTONE) 50 mg tablet - spironolactone (ALDACTONE) 100 mg tablet - propranolol (INDERAL) 10 mg tablet - desvenlafaxine ER (PRISTIQ) 100 mg 24 hr tablet - estradiol (ESTRACE) 0.01 % (0.1 mg/gram) vaginal cream Use 1 g vaginally two times a week. - multivit,thx,calcium,iron,mins (MULTIVITAMIN AND MINERAL ORAL) Take by mouth. - cholecalciferol (VITAMIN D3) 1,000 unit tab tablet Take 1,000 Units by mouth once daily. - buPROPion XL (WELLBUTRIN XL) 300 mg 24 hr tablet Take 1 tablet by mouth once daily. 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] 08/09/2016 Obesity (BMI 30.0-34.9) [E66.9] 08/09/2016 Hyperlipidemia, mixed [E78.2] 08/09/2016 Snapping right knee [M23.8X1] 08/14/2017 Gastroesophageal reflux disease without esophag*08/14/2017 Chronic depression [F32.A] 02/13/2018 Recurrent UTI (urinary tract infection) [N39.0] 02/13/2018 Carpal tunnel syndrome of left wrist [G56.02] 11/25/2019 Well adult exam [Z00.00] 10/29/2021 Vitamin D deficiency [E55.9] 10/29/2021 Closed nondisplaced fracture of greater tuberos*02/06/2023 Encounter Status:Closed by EPIC, PRODUSER on 05/29/23 [facility] 05-09-2023 Note HNO ID: [id number] Author: Peyton Mercedes RDMS Service: ? Author Type: Superintendent Refuse Disposal Type: Progress Notes Filed: 05/09/2023 2:25 PM Note Text: Radiology Service Progress Note PATIENT NAME: Johnny Hobbs DATE OF SERVICE: May 09, 2023 TIME: 2:25 PM PATIENT IDENTITY VERIFICATION COMPLETED USING TWO (2) IDENTIFIERS: Name and Date of confirmed by patient verbally. FALL SCREENING: Has the patient had 2 falls in the last year or 1 fall with injury or currently using an Ambulatory Assistive Device (Walker, Cane, Wheelchair, Crutches, etc.)? No PATIENT GENDER DATA: Female. status: : No status: NO. PATIENT RELEVANT IMPLANT DATA REVIEWED: Not Applicable RADIOLOGY DEPARTMENT: Ultrasound PERIPHERAL IV DATA: Not applicable SIGNED BY: Peyton Mercedes RDMS May 09, 2023 2:25 PM [facility] 04-21-2023 Note HNO ID: [id number] Author: Mercedes Mitchell APRN.CAROL Service: ? Author Type: Nurse Practitioner Type: Progress Notes Filed: 04/21/2023 12:19 PM Note Text: Chief Complaint Patient presents with: yearly HPI Johnny Hobbs is a 57 year old female who presents here today for Above Complaints. Johnny is an established patient of Dr. Manuel DO. Concerns today... Routine physical. No concerns or complaints. Recurrent UTIs. Recently seen in urgent care on 04/14/23 due to UTI. Given macrobid antibiotic x 5 days and symptoms resolved. Pt has standing order for UA and urine culture in chart and will have this drawn with lab work to recheck as instructed by urgent care per pt. HM-- Colorectal cancer screening -- never completed. Mammogram overdue -- last completed on 05/06/21, normal. Pt reports having this done at [facility] in the springtime. Will need to get records. Due for PAP -- pt report pt of Dr. Bedoya that has left practice and looking for new CLINICAL TRIAL LEADER. Past medical history, appointments, medications, allergies reviewed. Previous Medical History PAST MEDICAL HISTORY Diagnosis Date Acne Biliary dyskinesia 04/28/14 s/p nnamdi Carpal tunnel syndrome 11/2018 right hand Hyperlipemia 2014 [place] 1.5% 07/2018 Mood disorder (HCC) Motion sickness Personal history of malignant melanoma of skin 1994 LEFT LEG, Dermatology managed Sleep apnea non compliant with cpap Previous Surgical History PAST SURGICAL HISTORY Procedure Laterality Date EXCISION OF MALIGNANT LESION GREATER THAN 1.25 CM 05/22/1994 MELANOMA LEFT LEG LAPAROSCOPY SURG CHOLECYSTECTOMY 04/28/2014 PAST SURGICAL HISTORY OF right CTR PAST SURGICAL HISTORY OF wisdom teeth TONSILLECTOMY PRIMARY/SECONDARY Tonsillectomy Family History FAMILY HISTORY Problem Relation Age of Onset Hypertension Mother Coronary Artery Disease Father Coronary Artery Disease Maternal Grandmother other (lung cancer) Brother 44 smoker Patient Allergies ALLERGIES Allergen Reactions Adhesive Tape (Cass* Rash Bactrim [Sulfametho* GI Upset, Other: See Comments dizziness Monosodium Glutamat* Diarrhea, GI Upset, Intolerance Nickel Itching, Rash Shellfish Containin* GI Upset, Intolerance Current Medications Current Outpatient Medications on File Prior to Visit Medication Sig spironolactone (ALDACTONE) 50 mg tablet spironolactone (ALDACTONE) 100 mg tablet propranolol (INDERAL) 10 mg tablet desvenlafaxine ER (PRISTIQ) 100 mg 24 hr tablet diclofenac, EC, (VOLTAREN) 75 mg EC tablet Take 1 tablet by mouth twice daily. FOR PAIN (Patient not taking: Reported on 01/30/2023) traMADol (ULTRAM) 50 mg tablet Take 1 tablet by mouth at bedtime as needed for pain. (Patient not taking: Reported on 01/16/2023) pumpkin seed extract-soy germ (AZO BLADDER CONTROL) 300 mg cap Take by mouth. (Patient not taking: Reported on 01/02/2023) omeprazole (PRILOSEC) 20 mg capsule TAKE 1 CAPSULE DAILY pravastatin (PRAVACHOL) 20 mg tablet Take 1 tablet by mouth once daily. estradiol (ESTRACE) 0.01 % (0.1 mg/gram) vaginal cream Use 1 g vaginally two times a week. multivit,thx,calcium,iron,mins (MULTIVITAMIN AND MINERAL ORAL) Take by mouth. cholecalciferol (VITAMIN D3) 1,000 unit tab tablet Take 1,000 Units by mouth once daily. buPROPion XL (WELLBUTRIN XL) 300 mg 24 hr tablet Take 1 tablet by mouth once daily. multivitamins w-minerals(DAILY MULTIVITAMIN-MINERALS TAB) Take one(1) tablet daily. (Patient not taking: Reported on 01/16/2023) No current facility-administered medications on file prior to visit. Social History Social History Tobacco Use Smoking status: Never Smokeless tobacco: Never Vaping Use Vaping Use: Never used Substance Use Topics Alcohol use: No Drug use: No REVIEW OF SYSTEMS: as above Reviewed relevant PMHx, PSHx, Social Hx, current medications and allergies. Review of Symptoms REVIEW OF SYSTEMS See HPI. EXAM: BP 118/62 (BP Site: Right Arm, BP Position: Sitting, BP Cuff Size: Regular Adult) Pulse (!) 59 Resp 14 Ht 158 cm (5' 2.21 ) Wt 83.8 kg (184 lb 12.8 oz) LMP 12/31/2013 SpO2 98% BMI 33.58 kg/m? General Appearance: Well appearing, alert, in no acute distress, well-hydrated, well nourished.. Skin: Skin color, texture, turgor normal, no suspicious rashes or lesions. Head: Normocephalic, no masses, lesions, tenderness or abnormalities. Back:no pain to palpation of vertebrae, good flexion and extension, good range of motion, no muscle tenderness, reflexes are 2+ and symmetric, motor and sensory appear to be normal Lungs: Lungs clear to auscultation. No wheezing, rhonchi, rales.. Heart: RRR without murmur, gallop, or rubs. No ectopy. Abdomen: Normal abdominal exam, Abdomen soft, non-tender. Bowel sounds normal. No masses, organomegaly. Extremities: No deformities, edema, skin discoloration, clubbing or cyanosis. Good capillary refill. . Musculoskeletal: (more content not included)... [facility] 04-21-2023 History of Present illness Narrative Chief Complaint Patient presents with: yearly HPI Johnny Hobbs is a 57 year old female who presents here today for Above Complaints. Johnny is an established patient of Dr. Manuel DO. Concerns today... Routine physical. No concerns or complaints. Recurrent UTIs. Recently seen in urgent care on 04/14/23 due to UTI. Given macrobid antibiotic x 5 days and symptoms resolved. Pt has standing order for UA and urine culture in chart and will have this drawn with lab work to recheck as instructed by urgent care per pt. HM-- Colorectal cancer screening -- never completed. Mammogram overdue -- last completed on 05/06/21, normal. Pt reports having this done at [facility] in the springtime. Will need to get records. Due for PAP -- pt report pt of Dr. Bedoya that has left practice and looking for new CLINICAL TRIAL LEADER. Past medical history, appointments, medications, allergies reviewed. Previous Medical History PAST MEDICAL HISTORY Diagnosis Date Acne Biliary dyskinesia 04/28/14 s/p nnamdi Carpal tunnel syndrome 11/2018 right hand Hyperlipemia 2014 [place] 1.5% 07/2018 Mood disorder (HCC) Motion sickness Personal history of malignant melanoma of skin 1994 LEFT LEG, Dermatology managed Sleep apnea non compliant with cpap Previous Surgical History PAST SURGICAL HISTORY Procedure Laterality Date EXCISION OF MALIGNANT LESION GREATER THAN 1.25 CM 05/22/1994 MELANOMA LEFT LEG LAPAROSCOPY SURG CHOLECYSTECTOMY 04/28/2014 PAST SURGICAL HISTORY OF right CTR PAST SURGICAL HISTORY OF wisdom teeth TONSILLECTOMY PRIMARY/SECONDARY <AGE 14 Tonsillectomy Family History FAMILY HISTORY Problem Relation Age of Onset Hypertension Mother Coronary Artery Disease Father Coronary Artery Disease Maternal Grandmother other (lung cancer) Brother 44 smoker Patient Allergies ALLERGIES Allergen Reactions Adhesive Tape (Cass* Rash Bactrim [Sulfametho* GI Upset, Other: See Comments dizziness Monosodium Glutamat* Diarrhea, GI Upset, Intolerance Nickel Itching, Rash Shellfish Containin* GI Upset, Intolerance Current Medications Current Outpatient Medications on File Prior to Visit Medication Sig spironolactone (ALDACTONE) 50 mg tablet spironolactone (ALDACTONE) 100 mg tablet propranolol (INDERAL) 10 mg tablet desvenlafaxine ER (PRISTIQ) 100 mg 24 hr tablet diclofenac, EC, (VOLTAREN) 75 mg EC tablet Take 1 tablet by mouth twice daily. FOR PAIN (Patient not taking: Reported on 01/30/2023) traMADol (ULTRAM) 50 mg tablet Take 1 tablet by mouth at bedtime as needed for pain. (Patient not taking: Reported on 01/16/2023) pumpkin seed extract-soy germ (AZO BLADDER CONTROL) 300 mg cap Take by mouth. (Patient not taking: Reported on 01/02/2023) omeprazole (PRILOSEC) 20 mg capsule TAKE 1 CAPSULE DAILY pravastatin (PRAVACHOL) 20 mg tablet Take 1 tablet by mouth once daily. estradiol (ESTRACE) 0.01 % (0.1 mg/gram) vaginal cream Use 1 g vaginally two times a week. multivit,thx,calcium,iron,mins (MULTIVITAMIN AND MINERAL ORAL) Take by mouth. cholecalciferol (VITAMIN D3) 1,000 unit tab tablet Take 1,000 Units by mouth once daily. buPROPion XL (WELLBUTRIN XL) 300 mg 24 hr tablet Take 1 tablet by mouth once daily. multivitamins w-minerals(DAILY MULTIVITAMIN-MINERALS TAB) Take one(1) tablet daily. (Patient not taking: Reported on 01/16/2023) No current facility-administered medications on file prior to visit. Social History Social History Tobacco Use Smoking status: Never Smokeless tobacco: Never Vaping Use Vaping Use: Never used Substance Use Topics Alcohol use: No Drug use: No REVIEW OF SYSTEMS: as above Reviewed relevant PMHx, PSHx, Social Hx, current medications and allergies. Review of Symptoms REVIEW OF SYSTEMS See HPI. EXAM: BP 118/62 (BP Site: Right Arm, BP Position: Sitting, BP Cuff Size: Regular Adult) Pulse (!) 59 Resp 14 Ht 158 cm (5' 2.21 ) Wt 83.8 kg (184 lb 12.8 oz) LMP 12/31/2013 SpO2 98% BMI 33.58 kg/m General Appearance: Well appearing, alert, in no acute distress, well-hydrated, well nourished.. Skin: Skin color, texture, turgor normal, no suspicious rashes or lesions. Head: Normocephalic, no masses, lesions, tenderness or abnormalities. Back:no pain to palpation of vertebrae, good flexion and extension, good range of motion, no muscle tenderness, reflexes are 2+ and symmetric, motor and sensory appear to be normal Lungs: Lungs clear to auscultation. No wheezing, rhonchi, rales.. Heart: RRR without murmur, gallop, or rubs. No ectopy. Abdomen: Normal abdominal exam, Abdomen soft, non-tender. Bowel sounds normal. No masses, organomegaly. Extremities: No deformities, edema, skin discoloration, clubbing or cyanosis. Good capillary refill. . Musculoskeletal: No joint swelling, deformity, or tenderness. Peripheral Pulses: Normal. Neurologic: Gait normal. Reflexes normal and symmetric. Sensation grossly intact.. Health Maintenance List Hepatitis B Vaccine(1 of 3 - 3-dose series) Never done HIV Screening Never done Colorectal Cancer Screening Never done DTaP,Tdap,Td Vaccine(1 - Tdap) due on 05/06/2014 Pap Testing due on 10/27/2021 HPV Testing due on 10/27/2021 Mammogram Screening due on 05/06/2022 Covid-19 Vaccine( - 2022- season) due on 01/20/2023 Diabetes Screening due on 10/20/2025 Lipid Screening due on 01/01/2027 Influenza Vaccine Completed Hepatitis C Screening Completed Shingrix Vaccine Completed ASSESSMENT/PLAN: 1. Well adult exam - ICD9: V70.0, ICD10: Z00.00 (primary diagnosis) - Counseled on healthy diet and regular exercise - Calcium intake with supplements or by diet of 1000 mg/day for under 50, 5170-4974 mg/day for 50+ - Discussed need and benefit for weight loss. BMI 33.58 kg/(m^2) - Colorectal cancer screening recommended - agrees to Cologuard - Mammogram ordered - exam recommended once yearly. Will get records from [facility]'s recent mammogram and update chart. - Consult to CLINICAL TRIAL LEADER to establish for routine pelvic exams and PAPs. - Depression screening tool completed and reviewed with patient. Based on score and interview, patient is not at risk for depression and recommended no further intervention at this time. - Follow up for annual exam in one year - LIPID PANEL BASIC - COMP METABOLIC PANEL - CBC - COLOGUARD - CONSULT TO GYNECOLOGY 2. Screening for colon cancer - ICD9: V76.51, ICD10: Z12.11 - COLOGUARD 3. Hyperlipidemia, mixed - ICD9: 272.2, ICD10: E78.2 - Control undetermined, due for labs - Continue current medications - Counseled on healthy diet and regular exercise - PRAVASTATIN 20 MG TABLET 4. Recurrent UTI (urinary tract infection) - ICD9: 599.0, ICD10: N39.0 Symptoms resolved. Complete standing order of UA to test for cure d/t recurrence rate. 5. Gastroesophageal reflux disease without esophagitis - ICD9: 530.81, ICD10: K21.9 - Discussed lifestyle modifications including losing weight, limiting caffeine, no meals three hours before sleep, and head of bed elevation - Continue treatment with Prilosec 20 mg QD - OMEPRAZOLE 20 MG CAPSULE,DELAYED RELEASE RTO annually and as needed. Prescription instructions reviewed with patient as applicable. Potential red flag symptoms discussed with the patient. Reviewed appropriate action plan to take if red flag symptoms occur. Patient agreeable to treatment plan. Mercedes Cooper APRN.MANAGER AUDIT [address] [place] [address] documented in this encounter [facility] 04-20-2023 Miscellaneous Notes Over due for appointment. Scheduled. Beth Dodson RN documented in this encounter [facility] 04-17-2023 Note HNO ID: [id number] Author: Martir Arango, PT Service: ? Author Type: Physical Therapist Type: Progress Notes Filed: 04/17/2023 1:33 PM Note Text: Episode Visit Count: 7 Therapist That Will Accept/Oversee The Plan Of Care: Martir Arango Start of Care Date: 02/06/23 Onset Date: 12/26/22 Patient Identified by Name and Date of : Yes REHABILITATION AND SPORTS THERAPY PHYSICAL THERAPY PROGRESS REPORT PLAN OF CARE UPDATE: Assessment: Johnny Hobbs demonstrates improvements in reaching behind back, reaching overhead, and use hand with arm at shoulder level. She has progressed toward goals. Patient continues to present with impairments in range of motion and tissue tenderness that interfere with reaching overhead, reaching behind back . Current prognosis is Good due to: current objective clinical presentation, good overall health status . She will benefit from continued skilled therapy services to meet the updated goals for this plan of care as noted below. Goals updated 04/17/2023 Goals for Episode of Care: created on 02/06/23 through 05/01/23 [place]ode in home exercise program. - MET Perform pushing, pulling, and lifting without pain. - Progressing, will continue Increase ROM of L arm for ease of dressing, cleaning, and reaching - Progressing, will continue Increased strength of LUE to 5/5 for return to PLOF - Progressing, will continue Patient Goals: Return to regular activities Patient Goals: Return to regular activities Planned Interventions, Frequency, and Duration: 1x/month, One month Total Number of Visits Planned: 1 Patient to be seen for Therapeutic exercise ([id number]), Neuromuscular re-education (43691), Manual therapy (23195), Self-halfway management ([id number]), Patient/Family/Caregiver Education PLAN FOR NEXT VISIT: Possible DC SUBJECTIVE: Feels the massage that was done last session unlocked the arm. Feels 85-90% improved so far. Patient Goals: Return to regular activities Functional Limitations: reaching overhead, reaching behind back Prior Level of Function: Independent without limitations Intake Information: Prescription present Previous Treatment: Ice Pain: Pain Pain Level: (Not rated) Pain Location: Arm - Left PROMIS Scales Higher is Better 03/06/2023 02/05/2023 Phys Func - Score 47 (within normal limits) 41 (mild dysfunction) Phys Func - Percentile 38 % 18 % Self-Eff Symptom - Score 54 (Average) 45 (Average) Self-Eff Symptom - Percentile 66 % 31 % T-scores: mean of general population = 50. 5 points is clinically meaningfully difference Percentiles provide an indication of how the patient's score ranks in relation to the general population. Higher percentile rankings indicate better function/quality of life. 50th percentile is the average of the general population and indicates half of respondents had a worse score. OBJECTIVE MEASURES WITH LEVEL OF FUNCTION: UE AROM L Shoulder Flex: 155 Degrees L Shoulder ABduction: 135 Degrees UE and Cervical Strength L Shoulder Flexion: 4/5 L Shoulder Abduction (C5): 4/5 L Shoulder Internal Rotation: 4/5 L Shoulder External Rotation: 4/5 TREATMENT: Manual Therapy: 1: All objective measures taken this session 2: Stretching into shoulder flexion, abd, IR, and ER x 30 sec each 3: STM over L subscap muscle belly in supine with arm abd to 65 Skilled Intervention: Manual skills to improve joint mobility, ROM, and decrease pain. Utilized anatomy knowledge of the therapist, and assessment of patient's response to intervention. Billing Manual TherapyTreatment Minutes: 24 Skilled Treatment Time Minutes (timed and untimed codes): 24 Total Session Time (minutes): 24 Session Start Time : 1216 Session Stop Time : 1240 Martir Arango PT [facility] 04-17-2023 History of Present illness Narrative Episode Visit Count: 7 Therapist That Will Accept/Oversee The Plan Of Care: Martir Aarngo Start of Care Date: 02/06/23 Onset Date: 12/26/22 Patient Identified by Name and Date of : Yes REHABILITATION AND SPORTS THERAPY PHYSICAL THERAPY PROGRESS REPORT PLAN OF CARE UPDATE: Assessment: Johnny Hobbs demonstrates improvements in reaching behind back, reaching overhead, and use hand with arm at shoulder level. She has progressed toward goals. Patient continues to present with impairments in range of motion and tissue tenderness that interfere with reaching overhead, reaching behind back . Current prognosis is Good due to: current objective clinical presentation, good overall health status . She will benefit from continued skilled therapy services to meet the updated goals for this plan of care as noted below. Goals updated 04/17/2023 Goals for Episode of Care: created on 02/06/23 through 05/01/23 Bode in home exercise program. - MET Perform pushing, pulling, and lifting without pain. - Progressing, will continue Increase ROM of L arm for ease of dressing, cleaning, and reaching - Progressing, will continue Increased strength of LUE to 5/5 for return to PLOF - Progressing, will continue Patient Goals: Return to regular activities Patient Goals: Return to regular activities Planned Interventions, Frequency, and Duration: 1x/month, One month Total Number of Visits Planned: 1 Patient to be seen for Therapeutic exercise ([id number]), Neuromuscular re-education (37462), Manual therapy (06527), Self-halfway management ([id number]), Patient/Family/Caregiver Education PLAN FOR NEXT VISIT: Possible DC SUBJECTIVE: Feels the massage that was done last session unlocked the arm. Feels 85-90% improved so far. Patient Goals: Return to regular activities Functional Limitations: reaching overhead, reaching behind back Prior Level of Function: Independent without limitations Intake Information: Prescription present Previous Treatment: Ice Pain: Pain Pain Level: (Not rated) Pain Location: Arm - Left PROMIS Scales Higher is Better 03/06/2023 02/05/2023 Phys Func - Score 47 (within normal limits) 41 (mild dysfunction) Phys Func - Percentile 38 % 18 % Self-Eff Symptom - Score 54 (Average) 45 (Average) Self-Eff Symptom - Percentile 66 % 31 % T-scores: mean of general population = 50. 5 points is clinically meaningfully difference Percentiles provide an indication of how the patient's score ranks in relation to the general population. Higher percentile rankings indicate better function/quality of life. 50th percentile is the average of the general population and indicates half of respondents had a worse score. OBJECTIVE MEASURES WITH LEVEL OF FUNCTION: UE AROM L Shoulder Flex: 155 Degrees L Shoulder ABduction: 135 Degrees UE and Cervical Strength L Shoulder Flexion: 4/5 L Shoulder Abduction (C5): 4/5 L Shoulder Internal Rotation: 4/5 L Shoulder External Rotation: 4/5 TREATMENT: Manual Therapy: 1: All objective measures taken this session 2: Stretching into shoulder flexion, abd, IR, and ER x 30 sec each 3: STM over L subscap muscle belly in supine with arm abd to 65 Skilled Intervention: Manual skills to improve joint mobility, ROM, and decrease pain. Utilized anatomy knowledge of the therapist, and assessment of patient's response to intervention. Billing Manual TherapyTreatment Minutes: 24 Skilled Treatment Time Minutes (timed and untimed codes): 24 Total Session Time (minutes): 24 Session Start Time : 1216 Session Stop Time : 1240 Martir Arango PT documented in this encounter [facility] 04-15-2023 Miscellaneous Notes Patient notified of results, verbalized understanding of instructions given. Etta Jackson MA ----- Message from Lisa Cid APRN.MANAGER AUDIT sent at 04/15/2023 2:28 PM EST ----- Urine culture did not show any evidence of infection. She may continue to take antibiotic if it has been helpful. Recommend follow up with PCP to ensure hematuria has resolved. Lisa Cid CNP documented in this encounter [facility] 04-14-2023 Note HNO ID: [id number] Author: Lisa Cid APRN.CAROL Service: ? Author Type: Nurse Practitioner Type: Progress Notes Filed: 04/14/2023 1:37 PM Note Text: Subjective HPI Johnny Hobbs is a 57 year old female who presents with 3 days of frequency and dysuria. She has had some stomach cramping. She denies fever or back pain. She has not taken any medication at home for her symptoms. Review of Systems Constitutional: Negative for chills and fever. Respiratory: Negative. Cardiovascular: Negative. Gastrointestinal: Positive for abdominal pain (stomach cramps). Negative for nausea and vomiting. Genitourinary: Positive for dysuria and frequency. Musculoskeletal: Negative for back pain. BP 123/78 Pulse 73 Temp 36.2 ?C (97.2 ?F) Resp 18 Wt 84.2 kg (185 lb 9.6 oz) LMP 12/31/2013 SpO2 99% BMI 32.88 kg/m? PAST MEDICAL HISTORY Diagnosis Date Acne Biliary dyskinesia 04/28/14 s/p nnamdi Carpal tunnel syndrome 11/2018 right hand Hyperlipemia 2014 [place] 1.5% 07/2018 Mood disorder (HCC) Motion sickness Personal history of malignant melanoma of skin 1994 LEFT LEG, Dermatology managed Sleep apnea non compliant with cpap PAST SURGICAL HISTORY Procedure Laterality Date EXCISION OF MALIGNANT LESION GREATER THAN 1.25 CM 05/22/1994 MELANOMA LEFT LEG LAPAROSCOPY SURG CHOLECYSTECTOMY 04/28/2014 PAST SURGICAL HISTORY OF right CTR PAST SURGICAL HISTORY OF wisdom teeth TONSILLECTOMY PRIMARY/SECONDARY Tonsillectomy ALLERGIES Adhesive Tape (Rosins), Bactrim [Sulfamethoxazole-Trimethoprim], Monosodium Glutamate (Msg), Nickel, and Shellfish Containing Products MEDICATIONS spironolactone (ALDACTONE) 50 mg tablet spironolactone (ALDACTONE) 100 mg tablet propranolol (INDERAL) 10 mg tablet desvenlafaxine ER (PRISTIQ) 100 mg 24 hr tablet omeprazole (PRILOSEC) 20 mg capsule TAKE 1 CAPSULE DAILY pravastatin (PRAVACHOL) 20 mg tablet Take 1 tablet by mouth once daily. multivit,thx,calcium,iron,mins (MULTIVITAMIN AND MINERAL ORAL) Take by mouth. cholecalciferol (VITAMIN D3) 1,000 unit tab tablet Take 1,000 Units by mouth once daily. buPROPion XL (WELLBUTRIN XL) 300 mg 24 hr tablet Take 1 tablet by mouth once daily. diclofenac, EC, (VOLTAREN) 75 mg EC tablet Take 1 tablet by mouth twice daily. FOR PAIN (Patient not taking: Reported on 01/30/2023) traMADol (ULTRAM) 50 mg tablet Take 1 tablet by mouth at bedtime as needed for pain. (Patient not taking: Reported on 01/16/2023) pumpkin seed extract-soy germ (AZO BLADDER CONTROL) 300 mg cap Take by mouth. (Patient not taking: Reported on 01/02/2023) estradiol (ESTRACE) 0.01 % (0.1 mg/gram) vaginal cream Use 1 g vaginally two times a week. multivitamins w-minerals(DAILY MULTIVITAMIN-MINERALS TAB) Take one(1) tablet daily. (Patient not taking: Reported on 01/16/2023) FAMILY HISTORY Problem Relation Age of Onset Hypertension Mother Coronary Artery Disease Father Coronary Artery Disease Maternal Grandmother other (lung cancer) Brother 44 smoker Social History Tobacco Use Smoking status: Never Smokeless tobacco: Never Vaping Use Vaping Use: Never used Substance Use Topics Alcohol use: No Drug use: No Objective Physical Exam Vitals and nursing note reviewed. Constitutional: General: She is not in acute distress. Appearance: Normal appearance. She is not ill-appearing. Cardiovascular: Rate and Rhythm: Normal rate and regular rhythm. Heart sounds: Normal heart sounds. Pulmonary: Effort: Pulmonary effort is normal. No respiratory distress. Breath sounds: Normal breath sounds. No wheezing or rales. Abdominal: General: There is no distension. Palpations: Abdomen is soft. There is no mass. Tenderness: There is abdominal tenderness in the suprapubic area. There is no right CVA tenderness, left CVA tenderness or guarding. Skin: General: Skin is warm and dry. Neurological: Mental Status: She is alert. Last labs for kidney function: Component Latest Ref Rng AND Units 10/20/2022 Protein, Total 6.3 - 8.0 g/dL 7.4 Albumin 3.9 - 4.9 g/dL 4.6 Calcium 8.5 - 10.2 mg/dL 10.3 (H) Bilirubin, Total 0.2 - 1.3 mg/dL 0.7 Alkaline Phosphatase 34 - 123 U/L 85 AST 13 - 35 U/L 35 ALT 7 - 38 U/L 47 (H) Glucose 74 - 99 mg/dL 120 (H) BUN 7 - 21 mg/dL 15 Creatinine 0.58 - 0.96 mg/dL 0.75 Sodium 136 - 144 mmol/L 140 Potassium 3.7 - 5.1 mmol/L 4.1 Chloride 97 - 105 mmol/L 102 CO2 22 - 30 mmol/L 25 Anion Gap 9 - 18 mmol/L 13 eGFR >=60 mL/min/1.73mA? 95 Office Visit on 04/14/2023 Component Date Value Ref Range Status GLUCOSE UA (POCT) 04/14/2023 Negative Negative mg/dL Final BILIRUBIN UA (POCT) 04/14/2023 Negative Negative Final KETONE UA (POCT) 04/14/2023 Negative Negative mg/dL Final SPECIFIC GRAVITY UA (POCT) 04/14/2023 <=1.005 (A) 1.005 - 1.030 Final HEMOGLOBIN/BLOOD UA (POCT) 04/14/2023 Large (A) Negative Final PH UA (POCT) 04/14/2023 5.5 4.5 - 8.0 Final PROTEI (more content not included)... [facility] 04-14-2023 Instructions Lisa Cid APRN.MANAGER AUDIT - 04/14/2023 1:35 PM EST ASSESSMENT/PLAN: 1. Urinary frequency - ICD9: 788.41, ICD10: R35.0 acute - UA positive for mable esterase and hematuria - Send urine for culture - Begin treatment with Macrobid 100 mg BID for 5 days - UA DIP, URINE (POC) - URINE CULTURE - NITROFURANTOIN MONOHYDRATE & MACROCRYSTAL 100 MG ORAL CAP - Follow-up with your PCP in 3-5 days if symptoms have not improved or sooner if symptoms worsen - Discussed red flags and need for immediate medical evaluation if any occur. - Discussed supportive care treatment with fluids, rest and analgesia. - Discussed expected course of illness Lisa Cid APRN.MANAGER AUDIT [facility] PATIENT INFO BLADDER INFECTION OVERVIEW Bladder infections are one of the most common infections, causing symptoms of burning with urination and needing to urinate frequently. A bladder infection is a type of urinary tract infection (UTI). Bladder infections are more common is women than men. Most women have an uncomplicated bladder infection that is easily treated with a short course of antibiotics. In men, bladder infections may also affect the prostate gland, and a longer course of treatment may be needed. BLADDER INFECTION CAUSES The urinary tract includes the kidneys (which filter urine), ureters (the tube that carries urine from the kidneys to the bladder), the bladder (which stores urine), and urethra (the tube that carries urine out of the bladder). Bacteria do not normally live in these areas. However, bacteria normally live close to the urethra in women and men who are not circumcised. Bladder infections occur when bacteria travel up the urethra into the bladder. Factors that increase the risk of developing a bladder infection include: Vaginal sex Use of spermicides History of past bladder infections Diabetes In men, not being circumcised or having anal sex increase the risk of bladder infections. BLADDER INFECTION SYMPTOMS The typical symptoms of a bladder infection include: Pain or burning when urinating Frequent need to urinate Urgent need to urinate Blood in the urine Fever, back pain, nausea, or vomiting are not common symptoms of a bladder infection, but can occur in people with a kidney infection (pyelonephritis). If you have these symptoms, you should call your doctor or nurse immediately. Is it a bladder infection or something else? -- Burning with urination can also occur in people with vaginitis (eg, yeast infection) or urethritis (inflammation of the urethra). For this reason, it is important to call your healthcare provider before assuming you have a bladder infection. BLADDER INFECTION DIAGNOSIS Simple bladder infections are usually diagnosed based upon your symptoms alone. However, most patients, especially those who have bladder infection symptoms for the first time, should see a healthcare provider for urine testing. Urine culture -- A urine culture is a test that uses a sample of urine to try and grow bacteria in a laboratory. It usually requires about 48 hours to get results. However, a urine culture is not always required to diagnose a bladder infection. Urine culture is often recommended if: You have never had a bladder infection before You have symptoms that are not typical for bladder infection You have had resistant bladder infections before You have frequent bladder infections You do not begin to feel better within 24 to 48 hours after starting antibiotics You are BLADDER INFECTION TREATMENT Bladder infection -- In young, healthy adolescents and adults with a bladder infection, the usual treatment includes a three to seven day course of antibiotics. The typical drugs chosen are: trimethoprim-sulfamethoxazole (Bactrim ), nitrofurantoin (Macrobid ), ciprofloxacin (Cipro ) or levofloxacin (Levaquin ). In men, the infection may involve your prostate gland and treatment is usually given for at least 7 days. Your symptoms should begin to resolve within one day after starting treatment. It is important to take the full course of antibiotics to completely eliminate the infection. If your symptoms persist for more than two or three days after starting treatment, call your healthcare provider. If needed, you can take a prescription medication that numbs the bladder and urethra (phenazopyridine [Pyridium ]) to reduce the burning pain of some UTIs. A similar medication is available without a prescription (eg, Uristat). Both medications change the color of the urine (usually blue or orange) and can interfere with laboratory testing. You should not take these medications for more than 48 hours due to the risk of side effects. These medications do not treat the infection and must be taken along with an antibiotic. Some providers recommend drinking more fluids while treating bladder infections to help flush bacteria from the bladder. Others believe that drinking more fluids may dilute the antibiotic in the bladder and make the medication less effective. No studies have been performed to address this issue. There are also no good studies on the effectiveness of cranberry juice for treating a bladder infection; we do not recommend using cranberry juice to treat bladder infections. Follow-up care -- Follow-up testing is not needed in healthy, young men or women with a bladder infection if symptoms resolve. women are usually asked to have a repeat urine culture one to two weeks after treatment has ended to make sure the bacteria are no longer in the urine. RECURRENT BLADDER INFECTIONS Bladder infections versus other causes -- Some adults, especially women, develop bladder infections frequently. In this case, it is important to confirm that your symptoms (eg, pain or burning, frequency, and urgency) are caused by a bladder infection. Symptoms are usually similar from one infection to another. The best way to confirm an infection is to have a urine culture. If your urine culture is negative for infection, other causes of pain, burning, and frequency should be investigated. There is no reason to take antibiotics if your urine culture is negative. Need for further testing -- If you continue to develop bladder infections, you may require further testing. If you continue to notice blood in your urine after your bladder infection has cleared, you should have further testing. Preventing recurrent UTIs -- Women with recurrent urinary tract infections may be advised to take steps to prevent bladder infections, including one or more of the following: Changes in control -- Women who develop frequent bladder infections and use spermicides, particularly those who also use a diaphragm, may be encouraged to use an alternate method of control. Cranberry products -- Taking cranberry juice or cranberry tablets has been promoted as one way to help prevent frequent bladder infections. However, this has not been proven. Drinking more fluid and urinating after intercourse -- Although studies have not proven that drinking more fluids or urinating soon after intercourse can prevent infection, some healthcare providers recommend these measures since they are not harmful. Drinking more fluid may help to wash out bacteria that enter the bladder. Postmenopausal women -- Postmenopausal women who develop recurrent bladder infections may benefit from using vaginal estrogen. Vaginal estrogen is available in a flexible ring that is worn in the vagina for three months (eg, Estring ), a small tablet (Vagifem ), or a cream (eg, Premarin or Estrace ). Vaginal estrogen is discussed in more detail in a separate topic review. Antibiotics -- A preventive antibiotic treatment may be recommended if you repeatedly develop bladder infections and have not responded to other preventive measures. Antibiotics are highly effective in preventing recurrent bladder infections and can be taken in several different ways. Preventive antibiotic -- You can take a low dose of an antibiotic once per day or three times per week for six months to several years. Antibiotics following intercourse -- In women who develop urinary tract infections after sex, taking a single low dose antibiotic after intercourse can help to prevent bladder infections. Self-treatment -- A plan to begin antibiotics at the first sign of a bladder infection may be recommended in some situations. Before starting this regimen, it is important that you have had testing (urine cultures) to confirm that your symptoms are caused by a bladder infection; some people have symptoms of a bladder infection but do not actually have an infection. documented in this encounter [facility] 04-14-2023 History of Present illness Narrative Subjective HPI Johnny Hobbs is a 57 year old female who presents with 3 days of frequency and dysuria. She has had some stomach cramping. She denies fever or back pain. She has not taken any medication at home for her symptoms. Review of Systems Constitutional: Negative for chills and fever. Respiratory: Negative. Cardiovascular: Negative. Gastrointestinal: Positive for abdominal pain (stomach cramps). Negative for nausea and vomiting. Genitourinary: Positive for dysuria and frequency. Musculoskeletal: Negative for back pain. BP 123/78 Pulse 73 Temp 36.2 C (97.2 F) Resp 18 Wt 84.2 kg (185 lb 9.6 oz) LMP 12/31/2013 SpO2 99% BMI 32.88 kg/m PAST MEDICAL HISTORY Diagnosis Date Acne Biliary dyskinesia 04/28/14 s/p nnamdi Carpal tunnel syndrome 11/2018 right hand Hyperlipemia 2014 [place] 1.5% 07/2018 Mood disorder (HCC) Motion sickness Personal history of malignant melanoma of skin 1994 LEFT LEG, Dermatology managed Sleep apnea non compliant with cpap PAST SURGICAL HISTORY Procedure Laterality Date EXCISION OF MALIGNANT LESION GREATER THAN 1.25 CM 05/22/1994 MELANOMA LEFT LEG LAPAROSCOPY SURG CHOLECYSTECTOMY 04/28/2014 PAST SURGICAL HISTORY OF right CTR PAST SURGICAL HISTORY OF wisdom teeth TONSILLECTOMY PRIMARY/SECONDARY <AGE 14 Tonsillectomy ALLERGIES Adhesive Tape (Rosins), Bactrim [Sulfamethoxazole-Trimethoprim], Monosodium Glutamate (Msg), Nickel, and Shellfish Containing Products MEDICATIONS spironolactone (ALDACTONE) 50 mg tablet spironolactone (ALDACTONE) 100 mg tablet propranolol (INDERAL) 10 mg tablet desvenlafaxine ER (PRISTIQ) 100 mg 24 hr tablet omeprazole (PRILOSEC) 20 mg capsule TAKE 1 CAPSULE DAILY pravastatin (PRAVACHOL) 20 mg tablet Take 1 tablet by mouth once daily. multivit,thx,calcium,iron,mins (MULTIVITAMIN AND MINERAL ORAL) Take by mouth. cholecalciferol (VITAMIN D3) 1,000 unit tab tablet Take 1,000 Units by mouth once daily. buPROPion XL (WELLBUTRIN XL) 300 mg 24 hr tablet Take 1 tablet by mouth once daily. diclofenac, EC, (VOLTAREN) 75 mg EC tablet Take 1 tablet by mouth twice daily. FOR PAIN (Patient not taking: Reported on 01/30/2023) traMADol (ULTRAM) 50 mg tablet Take 1 tablet by mouth at bedtime as needed for pain. (Patient not taking: Reported on 01/16/2023) pumpkin seed extract-soy germ (AZO BLADDER CONTROL) 300 mg cap Take by mouth. (Patient not taking: Reported on 01/02/2023) estradiol (ESTRACE) 0.01 % (0.1 mg/gram) vaginal cream Use 1 g vaginally two times a week. multivitamins w-minerals(DAILY MULTIVITAMIN-MINERALS TAB) Take one(1) tablet daily. (Patient not taking: Reported on 01/16/2023) FAMILY HISTORY Problem Relation Age of Onset Hypertension Mother Coronary Artery Disease Father Coronary Artery Disease Maternal Grandmother other (lung cancer) Brother 44 smoker Social History Tobacco Use Smoking status: Never Smokeless tobacco: Never Vaping Use Vaping Use: Never used Substance Use Topics Alcohol use: No Drug use: No Objective Physical Exam Vitals and nursing note reviewed. Constitutional: General: She is not in acute distress. Appearance: Normal appearance. She is not ill-appearing. Cardiovascular: Rate and Rhythm: Normal rate and regular rhythm. Heart sounds: Normal heart sounds. Pulmonary: Effort: Pulmonary effort is normal. No respiratory distress. Breath sounds: Normal breath sounds. No wheezing or rales. Abdominal: General: There is no distension. Palpations: Abdomen is soft. There is no mass. Tenderness: There is abdominal tenderness in the suprapubic area. There is no right CVA tenderness, left CVA tenderness or guarding. Skin: General: Skin is warm and dry. Neurological: Mental Status: She is alert. Last labs for kidney function: Component Latest Ref Rng & Units 10/20/2022 Protein, Total 6.3 - 8.0 g/dL 7.4 Albumin 3.9 - 4.9 g/dL 4.6 Calcium 8.5 - 10.2 mg/dL 10.3 (H) Bilirubin, Total 0.2 - 1.3 mg/dL 0.7 Alkaline Phosphatase 34 - 123 U/L 85 AST 13 - 35 U/L 35 ALT 7 - 38 U/L 47 (H) Glucose 74 - 99 mg/dL 120 (H) BUN 7 - 21 mg/dL 15 Creatinine 0.58 - 0.96 mg/dL 0.75 Sodium 136 - 144 mmol/L 140 Potassium 3.7 - 5.1 mmol/L 4.1 Chloride 97 - 105 mmol/L 102 CO2 22 - 30 mmol/L 25 Anion Gap 9 - 18 mmol/L 13 eGFR >=60 mL/min/1.73m 95 Office Visit on 04/14/2023 Component Date Value Ref Range Status GLUCOSE UA (POCT) 04/14/2023 Negative Negative mg/dL Final BILIRUBIN UA (POCT) 04/14/2023 Negative Negative Final KETONE UA (POCT) 04/14/2023 Negative Negative mg/dL Final SPECIFIC GRAVITY UA (POCT) 04/14/2023 <=1.005 (A) 1.005 - 1.030 Final HEMOGLOBIN/BLOOD UA (POCT) 04/14/2023 Large (A) Negative Final PH UA (POCT) 04/14/2023 5.5 4.5 - 8.0 Final PROTEIN UA (POCT) 04/14/2023 Negative Negative mg/dL Final UROBILINOGEN UA (POCT) 04/14/2023 0.2 Normal E.U./dL Final NITRITE UA (POCT) 04/14/2023 Negative Negative Final LEUKOCYTES UA (POCT) 04/14/2023 Small (A) Negative Final COLOR UA (POCT) 04/14/2023 Yellow Final CLARITY UA (POCT) 04/14/2023 Clear Final ASSESSMENT/PLAN: 1. Urinary frequency - ICD9: 788.41, ICD10: R35.0 acute - UA positive for mable esterase and hematuria - Send urine for culture - Begin treatment with Macrobid 100 mg BID for 5 days - UA DIP, URINE (POC) - URINE CULTURE - NITROFURANTOIN MONOHYDRATE & MACROCRYSTAL 100 MG ORAL CAP - Follow-up with your PCP in 3-5 days if symptoms have not improved or sooner if symptoms worsen - Discussed red flags and need for immediate medical evaluation if any occur. - Discussed supportive care treatment with fluids, rest and analgesia. - Discussed expected course of illness Lisa Cid APRN.MANAGER AUDIT documented in this encounter [facility] 03-21-2023 Note HNO ID: [id number] Author: Martir Arango PT Service: ? Author Type: Physical Therapist Type: Progress Notes Filed: 03/21/2023 12:29 PM Note Text: Episode Visit Count: 6 Therapist That Will Accept/Oversee The Plan Of Care: Martir Arango Start of Care Date: 02/06/23 Onset Date: 12/26/22 Patient Identified by Name and Date of : Yes REHABILITATION AND SPORTS THERAPY PHYSICAL THERAPY TREATMENT NOTE ASSESSMENT: Johnny Hobbs tolerated the session with expected muscle soreness. She demonstrated improved shoulder AROM. The patient will continue to benefit from ongoing skilled physical therapy to progress toward set goals. PLAN FOR NEXT VISIT: POC Update SUBJECTIVE: Feel the R shoulder is hurting now. Pain: Pain Pain Level: (Not rated) Pain Location: Arm - Left OBJECTIVE MEASURES WITH LEVEL OF FUNCTION: UE AROM L Shoulder Flex: 150 Degrees (supine with 2# wand pulling into flexion) L Shoulder ABduction: 129 Degrees L Shoulder Internal Rotation (Functional): Thumb to L3 TREATMENT: Therapeutic Exercise: 1: Supine shoulder flexion stretch with wand and 2# x 10 holding 20 sec each 2: Shoulder kervin stretch into abduction x 10 holding 20 sec each Skilled Intervention: Patient was educated in proper exercise technique and purpose for exercises. Correct performance of therapeutic exercises was facilitated with verbal and visual cuing. Manual Therapy: 1: Supine shoulder flexion stretch with firm overpressure x 4 holding 30 seconds each 2: Supine shoulder abd stretch x 4 holding 40 sec each 3: STM using fingertips along the subscapularis muscle belly in supine 4: Shoulder Er stretch 2 x 45 sec in supine Skilled Intervention: Manual skills to improve joint mobility, ROM, and decrease pain. Utilized anatomy knowledge of the therapist, and assessment of patient's response to intervention. Billing Therapeutic Exercise Treatment Minutes: 9 Manual TherapyTreatment Minutes: 32 Skilled Treatment Time Minutes (timed and untimed codes): 41 Total Session Time (minutes): 41 Session Start Time : 1102 Session Stop Time : 1143 Martir Arango PT [facility] 03-21-2023 History of Present illness Narrative Episode Visit Count: 6 Therapist That Will Accept/Oversee The Plan Of Care: Martir Arango Start of Care Date: 02/06/23 Onset Date: 12/26/22 Patient Identified by Name and Date of : Yes REHABILITATION AND SPORTS THERAPY PHYSICAL THERAPY TREATMENT NOTE ASSESSMENT: Johnny Hobbs tolerated the session with expected muscle soreness. She demonstrated improved shoulder AROM. The patient will continue to benefit from ongoing skilled physical therapy to progress toward set goals. PLAN FOR NEXT VISIT: POC Update SUBJECTIVE: Feel the R shoulder is hurting now. Pain: Pain Pain Level: (Not rated) Pain Location: Arm - Left OBJECTIVE MEASURES WITH LEVEL OF FUNCTION: UE AROM L Shoulder Flex: 150 Degrees (supine with 2# wand pulling into flexion) L Shoulder ABduction: 129 Degrees L Shoulder Internal Rotation (Functional): Thumb to L3 TREATMENT: Therapeutic Exercise: 1: Supine shoulder flexion stretch with wand and 2# x 10 holding 20 sec each 2: Shoulder kervin stretch into abduction x 10 holding 20 sec each Skilled Intervention: Patient was educated in proper exercise technique and purpose for exercises. Correct performance of therapeutic exercises was facilitated with verbal and visual cuing. Manual Therapy: 1: Supine shoulder flexion stretch with firm overpressure x 4 holding 30 seconds each 2: Supine shoulder abd stretch x 4 holding 40 sec each 3: STM using fingertips along the subscapularis muscle belly in supine 4: Shoulder Er stretch 2 x 45 sec in supine Skilled Intervention: Manual skills to improve joint mobility, ROM, and decrease pain. Utilized anatomy knowledge of the therapist, and assessment of patient's response to intervention. Billing Therapeutic Exercise Treatment Minutes: 9 Manual TherapyTreatment Minutes: 32 Skilled Treatment Time Minutes (timed and untimed codes): 41 Total Session Time (minutes): 41 Session Start Time : 1102 Session Stop Time : 1143 Martir Arango PT documented in this encounter [facility] 03-06-2023 Note HNO ID: [id number] Author: Martir Arango PT Service: ? Author Type: Physical Therapist Type: Progress Notes Filed: 03/06/2023 1:48 PM Note Text: Episode Visit Count: 5 Therapist That Will Accept/Oversee The Plan Of Care: Martir Arango Start of Care Date: 02/06/23 Onset Date: 12/26/22 Patient Identified by Name and Date of : Yes REHABILITATION AND SPORTS THERAPY PHYSICAL THERAPY PROGRESS REPORT PLAN OF CARE UPDATE: Assessment: Johnny Hobbs demonstrates improvements in shoulder ROM, strength, and level of independence with the HEP. She has progressed toward goals. Patient continues to present with impairments in ADL's, independence in exercise, range of motion, and strength that interfere with reaching behind back, reaching overhead, lifting, pulling, pushing . Current prognosis is Good due to: current objective clinical presentation, good overall health status . She will benefit from continued skilled therapy services to meet the updated goals for this plan of care as noted below. Goals updated 03/06/2023 Goals for Episode of Care: created on 02/06/23 through 05/01/23 [place] in home exercise program. - MET Perform pushing, pulling, and lifting without pain.PRogressing, will continue Increase ROM of L arm for ease of dressing, cleaning, and reaching - Progressing, will continue Increased strength of LUE to 5/5 for return to PLOF - Progressing, will continue Patient Goals: Return to regular activities Patient Goals: Return to regular activities Planned Interventions, Frequency, and Duration: 1x every other week, 4 weeks Total Number of Visits Planned: 2 Patient to be seen for Therapeutic exercise ([id number]), Neuromuscular re-education (80510), Manual therapy ([id number]), Self-halfway management (70574), Patient/Family/Caregiver Education PLAN FOR NEXT VISIT: LLLD stretches SUBJECTIVE: The shoulder has been more painful. Not sure that she has made anymore progress with her ROM. Stretching behind the back can really increase her symptoms. Patient Goals: Return to regular activities Functional Limitations: reaching behind back, reaching overhead, lifting, pulling, pushing Prior Level of Function: Independent without limitations Intake Information: Prescription present Previous Treatment: Ice Pain: Pain Pain Level: (Not rated) Pain Location: Arm - Left PROMIS Scales Higher is Better 03/06/2023 02/05/2023 Phys Func - Score 47 (within normal limits) 41 (mild dysfunction) Phys Func - Percentile 38 % 18 % Self-Eff Symptom - Score 54 (Average) 45 (Average) Self-Eff Symptom - Percentile 66 % 31 % T-scores: mean of general population = 50. 5 points is clinically meaningfully difference Percentiles provide an indication of how the patient's score ranks in relation to the general population. Higher percentile rankings indicate better function/quality of life. 50th percentile is the average of the general population and indicates half of respondents had a worse score. OBJECTIVE MEASURES WITH LEVEL OF FUNCTION: UE AROM L Shoulder Flex: 134 Degrees (capsular end-feel) L Shoulder ABduction: 112 Degrees L Shoulder Internal Rotation (Functional): Thumb to L4 L Shoulder External Rotation: 50 Degrees UE PROM L Shoulder Flex: 143 Degrees (using pulleys and taken at end of session) UE and Cervical Strength Strength Tested: Shoulder All L Shoulder Flexion: 3-/5 L Shoulder Internal Rotation: 4/5 L Shoulder External Rotation: 4/5 L Elbow Extension (C7): 5/5 L Elbow Flexion (C6): 5/5 TREATMENT: Therapeutic Exercise: 1: All objective measures taken this session 2: Supine wand flexion stretch 1# on wand x 5 holding 10 sec each 3: Supine wand ER stretch x 10 holding 10 sec each 4: Standing shoulder ER iso 3 x 10 holding 3 sec each 5: Standing shoulder IR on wall 3 x10 holding 3 sec each 6: Seated kervin stretch into flexion x 10 holding 10 sec Skilled Intervention: Patient was educated in proper exercise technique and purpose for exercises. Provided written instruction for home exercise program to facilitate proper performance and compliance. Correct performance of therapeutic exercises was facilitated with verbal cuing. Billing Therapeutic Exercise Treatment Minutes: 43 Skilled Treatment Time Minutes (timed and untimed codes): 43 Total Session Time (minutes): 43 Session Start Time : 1216 Session Stop Time : 1259 Martir Arango PT [facility] 03-06-2023 History of Present illness Narrative Episode Visit Count: 5 Therapist That Will Accept/Oversee The Plan Of Care: Martir Arango Start of Care Date: 02/06/23 Onset Date: 12/26/22 Patient Identified by Name and Date of : Yes REHABILITATION AND SPORTS THERAPY PHYSICAL THERAPY PROGRESS REPORT PLAN OF CARE UPDATE: Assessment: Johnny Hobbs demonstrates improvements in shoulder ROM, strength, and level of independence with the HEP. She has progressed toward goals. Patient continues to present with impairments in ADL's, independence in exercise, range of motion, and strength that interfere with reaching behind back, reaching overhead, lifting, pulling, pushing . Current prognosis is Good due to: current objective clinical presentation, good overall health status . She will benefit from continued skilled therapy services to meet the updated goals for this plan of care as noted below. Goals updated 03/06/2023 Goals for Episode of Care: created on 02/06/23 through 05/01/23 Bode in home exercise program. - MET Perform pushing, pulling, and lifting without pain.PRogressing, will continue Increase ROM of L arm for ease of dressing, cleaning, and reaching - Progressing, will continue Increased strength of LUE to 5/5 for return to PLOF - Progressing, will continue Patient Goals: Return to regular activities Patient Goals: Return to regular activities Planned Interventions, Frequency, and Duration: 1x every other week, 4 weeks Total Number of Visits Planned: 2 Patient to be seen for Therapeutic exercise (34800), Neuromuscular re-education (50897), Manual therapy (10178), Self-halfway management (28386), Patient/Family/Caregiver Education PLAN FOR NEXT VISIT: LLLD stretches SUBJECTIVE: The shoulder has been more painful. Not sure that she has made anymore progress with her ROM. Stretching behind the back can really increase her symptoms. Patient Goals: Return to regular activities Functional Limitations: reaching behind back, reaching overhead, lifting, pulling, pushing Prior Level of Function: Independent without limitations Intake Information: Prescription present Previous Treatment: Ice Pain: Pain Pain Level: (Not rated) Pain Location: Arm - Left PROMIS Scales Higher is Better 03/06/2023 02/05/2023 Phys Func - Score 47 (within normal limits) 41 (mild dysfunction) Phys Func - Percentile 38 % 18 % Self-Eff Symptom - Score 54 (Average) 45 (Average) Self-Eff Symptom - Percentile 66 % 31 % T-scores: mean of general population = 50. 5 points is clinically meaningfully difference Percentiles provide an indication of how the patient's score ranks in relation to the general population. Higher percentile rankings indicate better function/quality of life. 50th percentile is the average of the general population and indicates half of respondents had a worse score. OBJECTIVE MEASURES WITH LEVEL OF FUNCTION: UE AROM L Shoulder Flex: 134 Degrees (capsular end-feel) L Shoulder ABduction: 112 Degrees L Shoulder Internal Rotation (Functional): Thumb to L4 L Shoulder External Rotation: 50 Degrees UE PROM L Shoulder Flex: 143 Degrees (using pulleys and taken at end of session) UE and Cervical Strength Strength Tested: Shoulder All L Shoulder Flexion: 3-/5 L Shoulder Internal Rotation: 4/5 L Shoulder External Rotation: 4/5 L Elbow Extension (C7): 5/5 L Elbow Flexion (C6): 5/5 TREATMENT: Therapeutic Exercise: 1: All objective measures taken this session 2: Supine wand flexion stretch 1# on wand x 5 holding 10 sec each 3: Supine wand ER stretch x 10 holding 10 sec each 4: Standing shoulder ER iso 3 x 10 holding 3 sec each 5: Standing shoulder IR on wall 3 x10 holding 3 sec each 6: Seated kervin stretch into flexion x 10 holding 10 sec Skilled Intervention: Patient was educated in proper exercise technique and purpose for exercises. Provided written instruction for home exercise program to facilitate proper performance and compliance. Correct performance of therapeutic exercises was facilitated with verbal cuing. Billing Therapeutic Exercise Treatment Minutes: 43 Skilled Treatment Time Minutes (timed and untimed codes): 43 Total Session Time (minutes): 43 Session Start Time : 1216 Session Stop Time : 1259 Martir Arango PT documented in this encounter [facility] 02-27-2023 Note HNO ID: [id number] Author: Martir Arango PT Service: ? Author Type: Physical Therapist Type: Progress Notes Filed: 02/27/2023 1:22 PM Note Text: Episode Visit Count: 4 Therapist That Will Accept/Oversee The Plan Of Care: Martir Arango Start of Care Date: 02/06/23 Onset Date: 12/26/22 Patient Identified by Name and Date of : Yes REHABILITATION AND SPORTS THERAPY PHYSICAL THERAPY TREATMENT NOTE ASSESSMENT: Johnny Hobbs tolerated the session with fatigue and no issues. She demonstrated improvements in shoulder elevation ROM. The patient will continue to benefit from ongoing skilled physical therapy to progress toward set goals and for reassessment by supervising therapist. PLAN FOR NEXT VISIT: Progress ROM as tolerated. POC update SUBJECTIVE: Pt was really sore after the last session and it lasted the entire next day. The internal rotation stretch behind the back is the most difficult one Pain: Pain Pain Level: (Not rated) Pain Location: Arm - Left OBJECTIVE MEASURES WITH LEVEL OF FUNCTION: UE PROM L Shoulder Flex: 134 Degrees TREATMENT: Therapeutic Exercise: 1: Shoulder kervin stretch into flexion x 15 holding 5 sec each 2: Wall slides x 10 holding 10 sec each 3: Standing IR stretch with strap x 10 holding 10-15 sec each 4: Standing shoulder ER iso 3 x 10 holding 3 sec each 5: Standing shoulder IR on wall 3 x10 holding 3 sec each Skilled Intervention: Patient was educated in proper exercise technique and purpose for exercises. Correct performance of therapeutic exercises was facilitated with verbal cuing. Manual Therapy: 1: Stretching into ER 3 x 30 in supine arm abd to 50 degrees 2: Stretching overhead x 30 sec Skilled Intervention: Manual skills to improve joint mobility, ROM, and decrease pain. Utilized anatomy knowledge of the therapist, and assessment of patient's response to intervention. Billing Therapeutic Exercise Treatment Minutes: 27 Manual TherapyTreatment Minutes: 4 Skilled Treatment Time Minutes (timed and untimed codes): 31 Total Session Time (minutes): 31 Session Start Time : 1213 Session Stop Time : 1244 Martir Arango PT [facility] 02-27-2023 History of Present illness Narrative Episode Visit Count: 4 Therapist That Will Accept/Oversee The Plan Of Care: Martir Arango Start of Care Date: 02/06/23 Onset Date: 12/26/22 Patient Identified by Name and Date of : Yes REHABILITATION AND SPORTS THERAPY PHYSICAL THERAPY TREATMENT NOTE ASSESSMENT: Johnny Hobbs tolerated the session with fatigue and no issues. She demonstrated improvements in shoulder elevation ROM. The patient will continue to benefit from ongoing skilled physical therapy to progress toward set goals and for reassessment by supervising therapist. PLAN FOR NEXT VISIT: Progress ROM as tolerated. POC update SUBJECTIVE: Pt was really sore after the last session and it lasted the entire next day. The internal rotation stretch behind the back is the most difficult one Pain: Pain Pain Level: (Not rated) Pain Location: Arm - Left OBJECTIVE MEASURES WITH LEVEL OF FUNCTION: UE PROM L Shoulder Flex: 134 Degrees TREATMENT: Therapeutic Exercise: 1: Shoulder kervin stretch into flexion x 15 holding 5 sec each 2: Wall slides x 10 holding 10 sec each 3: Standing IR stretch with strap x 10 holding 10-15 sec each 4: Standing shoulder ER iso 3 x 10 holding 3 sec each 5: Standing shoulder IR on wall 3 x10 holding 3 sec each Skilled Intervention: Patient was educated in proper exercise technique and purpose for exercises. Correct performance of therapeutic exercises was facilitated with verbal cuing. Manual Therapy: 1: Stretching into ER 3 x 30 in supine arm abd to 50 degrees 2: Stretching overhead x 30 sec Skilled Intervention: Manual skills to improve joint mobility, ROM, and decrease pain. Utilized anatomy knowledge of the therapist, and assessment of patient's response to intervention. Billing Therapeutic Exercise Treatment Minutes: 27 Manual TherapyTreatment Minutes: 4 Skilled Treatment Time Minutes (timed and untimed codes): 31 Total Session Time (minutes): 31 Session Start Time : 1213 Session Stop Time : 1244 Martir Arango PT documented in this encounter [facility] 02-21-2023 Note HNO ID: [id number] Author: Martir Arango PT Service: ? Author Type: Physical Therapist Type: Progress Notes Filed: 02/21/2023 9:17 AM Note Text: Episode Visit Count: 3 Therapist That Will Accept/Oversee The Plan Of Care: Martir Arango Start of Care Date: 02/06/23 Onset Date: 12/26/22 Patient Identified by Name and Date of : Yes REHABILITATION AND SPORTS THERAPY PHYSICAL THERAPY TREATMENT NOTE ASSESSMENT: Johnny Hobbs tolerated the session with expected muscle soreness and no issues. She demonstrated fair to good tolerance of newly added therapeutic exercises. The patient will continue to benefit from ongoing skilled physical therapy to progress toward set goals. PLAN FOR NEXT VISIT: stretching of the L capsule SUBJECTIVE: Still having pain but better mobility. Pain: Pain Pain Level: 2 Pain Location: Arm - Left OBJECTIVE MEASURES WITH LEVEL OF FUNCTION: UE PROM L Shoulder Flex: 132 Degrees TREATMENT: Therapeutic Exercise: 1: Shoulder kervni stretch into flexion x 15 holding 5 sec each 2: Wall slides x 10 holding 10 sec each 3: Standing IR stretch with strap x 10 holding 10-15 sec each 4: Standing shoulder ER iso x 10 holding 3 sec each 5: Standing shoulder IR on wall x10 holding 3 sec each 6: *New HEP print off handed out and discussed Skilled Intervention: Patient was educated in proper exercise technique and purpose for exercises. Correct performance of therapeutic exercises was facilitated with verbal and visual cuing. Billing Therapeutic Exercise Treatment Minutes: 28 Skilled Treatment Time Minutes (timed and untimed codes): 28 Total Session Time (minutes): 28 Session Start Time : 843 Session Stop Time : 911 Pt arrived 10 min late for this appointment Martir Arango PT [facility] 02-21-2023 History of Present illness Narrative Episode Visit Count: 3 Therapist That Will Accept/Oversee The Plan Of Care: Martir Arango Start of Care Date: 02/06/23 Onset Date: 12/26/22 Patient Identified by Name and Date of : Yes REHABILITATION AND SPORTS THERAPY PHYSICAL THERAPY TREATMENT NOTE ASSESSMENT: Johnny Hobbs tolerated the session with expected muscle soreness and no issues. She demonstrated fair to good tolerance of newly added therapeutic exercises. The patient will continue to benefit from ongoing skilled physical therapy to progress toward set goals. PLAN FOR NEXT VISIT: stretching of the L capsule SUBJECTIVE: Still having pain but better mobility. Pain: Pain Pain Level: 2 Pain Location: Arm - Left OBJECTIVE MEASURES WITH LEVEL OF FUNCTION: UE PROM L Shoulder Flex: 132 Degrees TREATMENT: Therapeutic Exercise: 1: Shoulder kervin stretch into flexion x 15 holding 5 sec each 2: Wall slides x 10 holding 10 sec each 3: Standing IR stretch with strap x 10 holding 10-15 sec each 4: Standing shoulder ER iso x 10 holding 3 sec each 5: Standing shoulder IR on wall x10 holding 3 sec each 6: *New HEP print off handed out and discussed Skilled Intervention: Patient was educated in proper exercise technique and purpose for exercises. Correct performance of therapeutic exercises was facilitated with verbal and visual cuing. Billing Therapeutic Exercise Treatment Minutes: 28 Skilled Treatment Time Minutes (timed and untimed codes): 28 Total Session Time (minutes): 28 Session Start Time : 843 Session Stop Time : 911 Pt arrived 10 min late for this appointment Martir Arango PT documented in this encounter [facility] 02-13-2023 Note HNO ID: [id number] Author: Martir Arango PT Service: ? Author Type: Physical Therapist Type: Progress Notes Filed: 02/13/2023 11:29 AM Note Text: Episode Visit Count: 2 Therapist That Will Accept/Oversee The Plan Of Care: Martir Arango Start of Care Date: 02/06/23 Onset Date: 12/26/22 Patient Identified by Name and Date of : Yes REHABILITATION AND SPORTS THERAPY PHYSICAL THERAPY TREATMENT NOTE ASSESSMENT: Johnny Hobbs tolerated the session with increased ROM. She demonstrated good tolerance to all therapeutic exercises. The patient will continue to benefit from ongoing skilled physical therapy to progress toward set goals. PLAN FOR NEXT VISIT: L shoulder stretching holding 10 sec or longer. L shoulder isometrics SUBJECTIVE: Feels that raising her arm is getting easier. Did have some throbbing pain in the arm after she got back from her long drive to another city. Pain: Pain Pain Level: (Not rated) Pain Location: Arm - Left OBJECTIVE MEASURES WITH LEVEL OF FUNCTION: UE PROM L Shoulder Flex: 120 Degrees TREATMENT: Therapeutic Exercise: 1: Supine wand flexion 2 x 10 holding 5-10 sec 2: Supine wand flexion AAROM x 10 3: Seated wand ER AAROM x 10 (Done) 4: Seated pulleys into scaption x 10 5: Supine ER stretch weight of arm 2 x 10 reps x 10 sec holds 6: *Discussed advancing the exercises by holding the end range position for 5-10 seconds Skilled Intervention: Patient was educated in proper exercise technique and purpose for exercises. Correct performance of therapeutic exercises was facilitated with verbal and visual cuing. Billing Therapeutic Exercise Treatment Minutes: 40 Skilled Treatment Time Minutes (timed and untimed codes): 40 Total Session Time (minutes): 40 Session Start Time : 1048 Session Stop Time : 1128 Martir Arango PT [facility] 02-06-2023 Note HNO ID: [id number] Author: Martir Arango PT Service: ? Author Type: Physical Therapist Type: Progress Notes Filed: 02/06/2023 1:27 PM Note Text: Episode Visit Count: 1 Therapist That Will Accept/Oversee The Plan Of Care: Martir Arango Start of Care Date: 02/06/23 Onset Date: 12/26/22 Patient Identified by Name and Date of : Yes REHABILITATION AND SPORTS THERAPY PHYSICAL THERAPY EVALUATION PLAN OF CARE: Assessment: Johnny Hobbs presents with diagnosis of L humeral fracture that interferes with reaching behind back, reaching overhead, lifting, pulling, pushing . She presents with impairments in ADL's, independence in exercise, range of motion, strength, and symptom management. PROMIS? (Patient-Reported Outcomes Measurement Information System) scores were reviewed and physical function domain identified as a rehabilitation concern. Prognosis for therapy is Good due to: current objective clinical presentation, good overall health status . She will benefit from skilled therapy services to meet the goals established for this plan of care as noted below. Goals for Episode of Care: created on 02/06/23 through 05/01/23 Bode in home exercise program. Perform pushing, pulling, and lifting without pain. Increase ROM of L arm for ease of dressing, cleaning, and reaching Increased strength of LUE to 5/5 for return to PLOF Patient Goals: Return to regular activities Planned Interventions, Frequency, and Duration: Current Frequency: 1x/week Duration: 4 weeks Total Number of Visits Planned: 4 Planned Treatment Interventions: Therapeutic exercise (21333), Neuromuscular re-education (94490), Manual therapy (85401), Self-halfway management (88128), Patient/Family/Caregiver Education PLAN FOR NEXT VISIT: AAOM exercises Patient demonstrates good understanding of plan of care and treatment. The above goals and plan of care were discussed and agreed upon by patient/family. SUBJECTIVE: Shoulder pain. Can awaken at night due to pain. More pt uses it the more it hurts. 40% of available ROM. Fell and this caused the fracture. Landed on the R side but the L arm caught a box and it pulled her arm back and thats how she got the break. Patient Goals: Return to regular activities Functional Limitations: reaching behind back, reaching overhead, lifting, pulling, pushing Prior Level of Function: Independent without limitations Intake Information: Prescription present Previous Treatment: Ice (Aleve) Pain: Pain Pain Level: 1 (7/10 when using it) Pain Location: Arm - Left Description: Sharp, Aching PROMIS Scales Higher is Better 02/05/2023 Phys Func - Score 41 (mild dysfunction) Phys Func - Percentile 18 % Self-Eff Symptom - Score 45 (Average) Self-Eff Symptom - Percentile 31 % T-scores: mean of general population = 50. 5 points is clinically meaningfully difference Percentiles provide an indication of how the patient's score ranks in relation to the general population. Higher percentile rankings indicate better function/quality of life. 50th percentile is the average of the general population and indicates half of respondents had a worse score. OBJECTIVE MEASURES WITH LEVEL OF FUNCTION: Cervical Spine ROM Cervical ROM : (WFL) UE AROM L Shoulder Flex: 70 Degrees L Shoulder ABduction: 45 Degrees L Shoulder Internal Rotation: (WNL) L Shoulder External Rotation: 35 Degrees UE and Cervical Strength R UE Strength: Grossly 5/5 L UE Strength: Grossly 2+/5 Education: Education Learning Preferences: Demonstration, Explanation, Performance, Printed Materials Barriers: None Learning/educational needs: Home exercise program, Plan of Care Education Provided: Yes, see treatment interventions for education provided Education Provided To: Patient Education Mode/Type: Demonstration, Explanation/Discussion, Literature/Printed Materials, Performance Response to Education/Teach Back: States/Identifies TREATMENT: PT Treatment Interventions: Therapeutic Exercise Evaluation Therapeutic Exercise: 1: Discussed therapy goals, exam findings, and purpose of the HEP. 2: Supine wand flexion AAROM x 10 3: Seated wand ER AAROM x 10 4: Seated pulleys into scaption x 10 Skilled Intervention: Patient was educated in proper exercise technique and purpose for exercises. Skilled judgment was provided in selection of appropriate interventions. Provided written instruction for home exercise program to facilitate proper performance and compliance. Correct performance of therapeutic exercises was facilitated with verbal and visual cuing. Billing * Evaluation Low Complexity: 1 Unit Therapeutic Exercise Treatment Minutes: 17 Skilled Treatment Time Minutes (timed and untimed codes): 30 Total Session Time (minutes): 30 Session Start Time : 1130 Session Stop Time : 1200 Martir Arango, PT [facility] 02-06-2023 History of Present illness Narrative Episode Visit Count: 1 Therapist That Will Accept/Oversee The Plan Of Care: Martir Arango Start of Care Date: 02/06/23 Onset Date: 12/26/22 Patient Identified by Name and Date of : Yes REHABILITATION AND SPORTS THERAPY PHYSICAL THERAPY EVALUATION PLAN OF CARE: Assessment: Johnny Hobbs presents with diagnosis of L humeral fracture that interferes with reaching behind back, reaching overhead, lifting, pulling, pushing . She presents with impairments in ADL's, independence in exercise, range of motion, strength, and symptom management. PROMIS (Patient-Reported Outcomes Measurement Information System) scores were reviewed and physical function domain identified as a rehabilitation concern. Prognosis for therapy is Good due to: current objective clinical presentation, good overall health status . She will benefit from skilled therapy services to meet the goals established for this plan of care as noted below. Goals for Episode of Care: created on 02/06/23 through 05/01/23 Bode in home exercise program. Perform pushing, pulling, and lifting without pain. Increase ROM of L arm for ease of dressing, cleaning, and reaching Increased strength of LUE to 5/5 for return to PLOF Patient Goals: Return to regular activities Planned Interventions, Frequency, and Duration: Current Frequency: 1x/week Duration: 4 weeks Total Number of Visits Planned: 4 Planned Treatment Interventions: Therapeutic exercise (18338), Neuromuscular re-education (91948), Manual therapy (18359), Self-halfway management ([id number]), Patient/Family/Caregiver Education PLAN FOR NEXT VISIT: AAOM exercises Patient demonstrates good understanding of plan of care and treatment. The above goals and plan of care were discussed and agreed upon by patient/family. SUBJECTIVE: Shoulder pain. Can awaken at night due to pain. More pt uses it the more it hurts. 40% of available ROM. Fell and this caused the fracture. Landed on the R side but the L arm caught a box and it pulled her arm back and thats how she got the break. Patient Goals: Return to regular activities Functional Limitations: reaching behind back, reaching overhead, lifting, pulling, pushing Prior Level of Function: Independent without limitations Intake Information: Prescription present Previous Treatment: Ice (Aleve) Pain: Pain Pain Level: 1 (7/10 when using it) Pain Location: Arm - Left Description: Sharp, Aching PROMIS Scales Higher is Better 02/05/2023 Phys Func - Score 41 (mild dysfunction) Phys Func - Percentile 18 % Self-Eff Symptom - Score 45 (Average) Self-Eff Symptom - Percentile 31 % T-scores: mean of general population = 50. 5 points is clinically meaningfully difference Percentiles provide an indication of how the patient's score ranks in relation to the general population. Higher percentile rankings indicate better function/quality of life. 50th percentile is the average of the general population and indicates half of respondents had a worse score. OBJECTIVE MEASURES WITH LEVEL OF FUNCTION: Cervical Spine ROM Cervical ROM : (WFL) UE AROM L Shoulder Flex: 70 Degrees L Shoulder ABduction: 45 Degrees L Shoulder Internal Rotation: (WNL) L Shoulder External Rotation: 35 Degrees UE and Cervical Strength R UE Strength: Grossly 5/5 L UE Strength: Grossly 2+/5 Education: Education Learning Preferences: Demonstration, Explanation, Performance, Printed Materials Barriers: None Learning/educational needs: Home exercise program, Plan of Care Education Provided: Yes, see treatment interventions for education provided Education Provided To: Patient Education Mode/Type: Demonstration, Explanation/Discussion, Literature/Printed Materials, Performance Response to Education/Teach Back: States/Identifies TREATMENT: PT Treatment Interventions: Therapeutic Exercise Evaluation Therapeutic Exercise: 1: Discussed therapy goals, exam findings, and purpose of the HEP. 2: Supine wand flexion AAROM x 10 3: Seated wand ER AAROM x 10 4: Seated pulleys into scaption x 10 Skilled Intervention: Patient was educated in proper exercise technique and purpose for exercises. Skilled judgment was provided in selection of appropriate interventions. Provided written instruction for home exercise program to facilitate proper performance and compliance. Correct performance of therapeutic exercises was facilitated with verbal and visual cuing. Billing * Evaluation Low Complexity: 1 Unit Therapeutic Exercise Treatment Minutes: 17 Skilled Treatment Time Minutes (timed and untimed codes): 30 Total Session Time (minutes): 30 Session Start Time : 1130 Session Stop Time : 1200 Martir Arango PT documented in this encounter [facility] 01-30-2023 Note HNO ID: [id number] Author: Gaviota Gonsalves PA-C Service: ? Author Type: Physician Bi Technical Lead Type: Progress Notes Filed: 02/02/2023 11:17 AM Note Text: Gaviota Gonsalves PA-C Department of Orthopaedics Orthopaedics [address] [facility] [address] Dept: [phone] Dept January 30, 2023 CHIEF COMPLAINT: Established Patient of the Left Arm (5 weeks post fracture left humerus/Xray 01/30/2023). ASSESSMENT: S42.255D Closed nondisplaced fracture of greater tuberosity of left humerus with routine healing, subsequent encounter (primary encounter diagnosis) M25.532 Pain in left wrist SUMMARY/PLAN: Patient presents just about 5 weeks status post left proximal humerus fracture. She is doing better, just started transitioning out of her sling for light activities. Did not fill the prescription for the oral anti-inflammatory and instead continues to take Tylenol. She complains of some swelling in her wrist which she is not sure if it is related to her injury. She is scheduled to start physical therapy next week. Suggested potentially doing an asqj-yaf-qsqnssk anti-inflammatory and lieu of the prescription if it makes her feel more comfortable. We can also get some x-rays of her wrist. She can follow-up if needed after physical therapy. Imaging: * * *Final Report* * * DATE OF EXAM: Jan 30 2023 2:40PM WRX 5252 - XR SHLDR >/=3V AP/MANDY AP/OTHR LT / PROCEDURE REASON: Closed nondisplaced fracture of greater tuberosity of left humerus with routine * * * * Physician Interpretation * * * * EXAMINATION: XR SHLDR >/=3V AP/MANDY AP/OTHR LT CLINICAL HISTORY: Follow up after nondisplaced left greater tuberosity fracture. Closed nondisplaced fracture of greater tuberosity of left humerus with routine healing, subsequent encounter Technique: XR SHLDR >/=3V AP/AMNDY AP/OTHR LT -- LEFT with 3 views on 3 images Comparison: 01/16/2023 RESULT: Redemonstration of the transverse fracture of the proximal humerus extending to the greater and lesser tuberosity; there is no significant change in alignment. There is progressive callus formation at the fracture site. The fracture line remains perceptible. Glenohumeral joint is preserved. Acromioclavicular joint is within normal limits. No new fracture or dislocation. Adjacent ribs and lungs are unremarkable. IMPRESSION IMPRESSION: Healing left proximal humerus fracture. Retail Buyer: [employer] Transcribe Date/Time: Feb 02 2023 10:12A Dictated by : ARLENE PERRY MD This examination was interpreted and the report reviewed and electronically signed by: ARLENE PERRY MD on Feb 02 2023 10:14AM EST Ms. Johnny Hobbs was advised as to contrast therapies and/or to take analgesics/anti-inflammatories as needed and all contraindications were reviewed. Supporting Information Below: Medications: Current Outpatient Medications Medication Sig omeprazole (PRILOSEC) 20 mg capsule TAKE 1 CAPSULE DAILY pravastatin (PRAVACHOL) 20 mg tablet Take 1 tablet by mouth once daily. estradiol (ESTRACE) 0.01 % (0.1 mg/gram) vaginal cream Use 1 g vaginally two times a week. multivit,thx,calcium,iron,mins (MULTIVITAMIN AND MINERAL ORAL) Take by mouth. cholecalciferol (VITAMIN D3) 1,000 unit tab tablet Take 1,000 Units by mouth once daily. buPROPion XL (WELLBUTRIN XL) 300 mg 24 hr tablet Take 1 tablet by mouth once daily. diclofenac, EC, (VOLTAREN) 75 mg EC tablet Take 1 tablet by mouth twice daily. FOR PAIN (Patient not taking: Reported on 01/30/2023) traMADol (ULTRAM) 50 mg tablet Take 1 tablet by mouth at bedtime as needed for pain. (Patient not taking: Reported on 01/16/2023) pumpkin seed extract-soy germ (AZO BLADDER CONTROL) 300 mg cap Take by mouth. (Patient not taking: Reported on 01/02/2023) multivitamins w-minerals(DAILY MULTIVITAMIN-MINERALS TAB) Take one(1) tablet daily. (Patient not taking: Reported on 01/16/2023) No current facility-administered medications for this visit. Allergies: Adhesive Tape (Rosins), Bactrim [Sulfamethoxazole-Trimethoprim], Monosodium Glutamate (Msg), Nickel, and Shellfish Containing Products This note was partially generated using iQiyi voice recognition system, and there may be some incorrect words, spellings, and punctuation that were not noted in checking the note before saving. Gaviota Gonsalves PA-C [facility] 01-30-2023 Note HNO ID: [id number] Author: Farideh Harry RN Service: ? Author Type: Registered Nurse Type: Progress Notes Filed: 02/02/2023 11:17 AM Note Text: Patient presents with: Left Arm - Established Patient: 5 weeks post fracture left humerus Xray 01/30/2023 Patient here for 5 week post fracture of left humerus. States pain has gotten better but still has pain, especially with movement. Uses OTC meds and ice to relieve pain. AMB ROOMING INTAKE FLOWSHEET DATA Pain Pain Level: 5 (pain gets worse with movement 10) Pain Location: (left shoulder and wrist) Description: Aching, Throbbing Duration Amount of Time: 5 Duration Units: Weeks Frequency: Intermittent Intervention/Comfort measure: Medication, Cold, Relaxation [facility] 01-30-2023 Note HNO ID: [id number] Author: Marifer Saeed RT(R) Service: ? Author Type: Superintendent Refuse Disposal Type: Progress Notes Filed: 01/30/2023 2:36 PM Note Text: Radiology Service Progress Note PATIENT NAME: Johnny Hobbs DATE OF SERVICE: January 30, 2023 TIME: 2:23 PM PATIENT IDENTITY VERIFICATION COMPLETED USING TWO (2) IDENTIFIERS: Name and Date of confirmed by patient verbally. FALL SCREENING: Has the patient had 2 falls in the last year or 1 fall with injury or currently using an Ambulatory Assistive Device (Walker, Cane, Wheelchair, Crutches, etc.)? No PATIENT GENDER DATA: Female. status: : No status: NO. PATIENT RELEVANT IMPLANT DATA REVIEWED: Yes RADIOLOGY DEPARTMENT: General X-ray: Exam(s) Completed: Upper Extremity X-Ray(s): Shoulder, AP / TRUE AP / AXILLARY left PERIPHERAL IV DATA: Not applicable SIGNED BY: RT Kellie(R) January 30, 2023 2:23 PM [facility] 01-30-2023 History of Present illness Narrative Gaviota Gonsalves PA-C Department of Orthopaedics Orthopaedics [address] [facility] [address] Dept: [phone] Dept January 30, 2023 CHIEF COMPLAINT: Established Patient of the Left Arm (5 weeks post fracture left humerus/Xray 01/30/2023). ASSESSMENT: S42.255D Closed nondisplaced fracture of greater tuberosity of left humerus with routine healing, subsequent encounter (primary encounter diagnosis) M25.532 Pain in left wrist SUMMARY/PLAN: Patient presents just about 5 weeks status post left proximal humerus fracture. She is doing better, just started transitioning out of her sling for light activities. Did not fill the prescription for the oral anti-inflammatory and instead continues to take Tylenol. She complains of some swelling in her wrist which she is not sure if it is related to her injury. She is scheduled to start physical therapy next week. Suggested potentially doing an itwf-mqv-lyrokmn anti-inflammatory and lieu of the prescription if it makes her feel more comfortable. We can also get some x-rays of her wrist. She can follow-up if needed after physical therapy. Imaging: * * *Final Report* * * DATE OF EXAM: Jan 30 2023 2:40PM WRX 5252 - XR SHLDR >/=3V AP/MANDY AP/OTHR LT / PROCEDURE REASON: Closed nondisplaced fracture of greater tuberosity of left humerus with routine * * * * Physician Interpretation * * * * EXAMINATION: XR SHLDR >/=3V AP/MANDY AP/OTHR LT CLINICAL HISTORY: Follow up after nondisplaced left greater tuberosity fracture. Closed nondisplaced fracture of greater tuberosity of left humerus with routine healing, subsequent encounter Technique: XR SHLDR >/=3V AP/MANDY AP/OTHR LT -- LEFT with 3 views on 3 images Comparison: 01/16/2023 RESULT: Redemonstration of the transverse fracture of the proximal humerus extending to the greater and lesser tuberosity; there is no significant change in alignment. There is progressive callus formation at the fracture site. The fracture line remains perceptible. Glenohumeral joint is preserved. Acromioclavicular joint is within normal limits. No new fracture or dislocation. Adjacent ribs and lungs are unremarkable. IMPRESSION IMPRESSION: Healing left proximal humerus fracture. Retail Buyer: [employer] Transcribe Date/Time: Feb 02 2023 10:12A Dictated by : ARLENE PERRY MD This examination was interpreted and the report reviewed and electronically signed by: ARLENE PERRY MD on Feb 02 2023 10:14AM EST Ms. Johnny Hobbs was advised as to contrast therapies and/or to take analgesics/anti-inflammatories as needed and all contraindications were reviewed. Supporting Information Below: Medications: Current Outpatient Medications Medication Sig omeprazole (PRILOSEC) 20 mg capsule TAKE 1 CAPSULE DAILY pravastatin (PRAVACHOL) 20 mg tablet Take 1 tablet by mouth once daily. estradiol (ESTRACE) 0.01 % (0.1 mg/gram) vaginal cream Use 1 g vaginally two times a week. multivit,thx,calcium,iron,mins (MULTIVITAMIN AND MINERAL ORAL) Take by mouth. cholecalciferol (VITAMIN D3) 1,000 unit tab tablet Take 1,000 Units by mouth once daily. buPROPion XL (WELLBUTRIN XL) 300 mg 24 hr tablet Take 1 tablet by mouth once daily. diclofenac, EC, (VOLTAREN) 75 mg EC tablet Take 1 tablet by mouth twice daily. FOR PAIN (Patient not taking: Reported on 01/30/2023) traMADol (ULTRAM) 50 mg tablet Take 1 tablet by mouth at bedtime as needed for pain. (Patient not taking: Reported on 01/16/2023) pumpkin seed extract-soy germ (AZO BLADDER CONTROL) 300 mg cap Take by mouth. (Patient not taking: Reported on 01/02/2023) multivitamins w-minerals(DAILY MULTIVITAMIN-MINERALS TAB) Take one(1) tablet daily. (Patient not taking: Reported on 01/16/2023) No current facility-administered medications for this visit. Allergies: Adhesive Tape (Rosins), Bactrim [Sulfamethoxazole-Trimethoprim], Monosodium Glutamate (Msg), Nickel, and Shellfish Containing Products This note was partially generated using iQiyi voice recognition system, and there may be some incorrect words, spellings, and punctuation that were not noted in checking the note before saving. Gaviota Gonsalves PA-C Patient presents with: Left Arm - Established Patient: 5 weeks post fracture left humerus Xray 01/30/2023 Patient here for 5 week post fracture of left humerus. States pain has gotten better but still has pain, especially with movement. Uses OTC meds and ice to relieve pain. AMB ROOMING INTAKE FLOWSHEET DATA Pain Pain Level: 5 (pain gets worse with movement 01/29) Pain Location: (left shoulder and wrist) Description: Aching, Throbbing Duration Amount of Time: 5 Duration Units: Weeks Frequency: Intermittent Intervention/Comfort measure: Medication, Cold, Relaxation documented in this encounter [facility] 01-16-2023 Note HNO ID: [id number] Author: Gaviota Gonsalves PA-C Service: ? Author Type: Physician Bi Technical Lead Type: Progress Notes Filed: 01/19/2023 7:35 AM Note Text: Gaviota Gonsalves PA-C Department of Orthopaedics [facility] [address] [facility] [address] Dept: [phone] Dept January 16, 2023 CHIEF COMPLAINT: Fracture of the left Shoulder (3 weeks post fracture R proximal humerus. Xrays taken today). ASSESSMENT: S42.255D Closed nondisplaced fracture of greater tuberosity of left humerus with routine healing, subsequent encounter (primary encounter diagnosis) SUMMARY/PLAN: Patient presents 3 weeks status post left proximal humerus fracture after a fall in her garage. She is doing better, still having some pain though it is much improved. Pain today is a 5 out of 10 deep aching. Patient continues to be diligent with icing and is not taking Tylenol. We gave her some tramadol but she did not find it to be beneficial. Complains of some soreness in the left elbow and wrist today which is new. We discussed getting on an oral anti-inflammatory to help with swelling and discomfort. She may remove the sling for light activities. I like to see her back in 2 weeks with some final x-rays. At that time we will get her into some physical therapy as well. Exam: Diffuse tenderness palpation over the left shoulder, there is resolving ecchymosis along the left bicep region. Patient is able to gently flex and extend the left elbow with some subjective stiffness. Range of motion of the shoulder was not tested. Imaging: * * *Final Report* * * DATE OF EXAM: Jan 16 2023 11:35AM WRX 5252 - XR SHLDR >/=3V AP/MANDY AP/OTHR LT / PROCEDURE REASON: Closed fracture of proximal end of left humerus, unspecified fracture morphology * * * * Physician Interpretation * * * * EXAM TITLE: XR SHLDR >/=3V AP/MANDY AP/OTHR LT EXAM DATE/TIME: 01/16/2023 11:35 AM COMPARISON: X-ray shoulder on 01/02/2023 CLINICAL INDICATION/HISTORY: Fracture TECHNIQUE: AP, true AP and Y views of the left shoulder are presented FINDINGS: Nondisplaced vertical fracture again demonstrated in the greater tuberosity of the left humerus extending to the humeral neck. No new fracture seen. The proximal clavicular and glenohumeral joint spaces are maintained. The bones are somewhat osteopenic. There is no significant soft tissue swelling. IMPRESSION IMPRESSION: Left humeral fracture unchanged. Ms. Johnny Hobbs was advised as to contrast therapies and/or to take analgesics/anti-inflammatories as needed and all contraindications were reviewed. Supporting Information Below: Medications: Current Outpatient Medications Medication Sig omeprazole (PRILOSEC) 20 mg capsule TAKE 1 CAPSULE DAILY pravastatin (PRAVACHOL) 20 mg tablet Take 1 tablet by mouth once daily. estradiol (ESTRACE) 0.01 % (0.1 mg/gram) vaginal cream Use 1 g vaginally two times a week. multivit,thx,calcium,iron,mins (MULTIVITAMIN AND MINERAL ORAL) Take by mouth. cholecalciferol (VITAMIN D3) 1,000 unit tab tablet Take 1,000 Units by mouth once daily. buPROPion XL (WELLBUTRIN XL) 300 mg 24 hr tablet Take 1 tablet by mouth once daily. diclofenac, EC, (VOLTAREN) 75 mg EC tablet Take 1 tablet by mouth twice daily. FOR PAIN traMADol (ULTRAM) 50 mg tablet Take 1 tablet by mouth at bedtime as needed for pain. (Patient not taking: Reported on 01/16/2023) pumpkin seed extract-soy germ (AZO BLADDER CONTROL) 300 mg cap Take by mouth. (Patient not taking: Reported on 01/02/2023) multivitamins w-minerals(DAILY MULTIVITAMIN-MINERALS TAB) Take one(1) tablet daily. (Patient not taking: Reported on 01/16/2023) No current facility-administered medications for this visit. Allergies: Adhesive Tape (Rosins), Bactrim [Sulfamethoxazole-Trimethoprim], Monosodium Glutamate (Msg), Nickel, and Shellfish Containing Products This note was partially generated using iQiyi voice recognition system, and there may be some incorrect words, spellings, and punctuation that were not noted in checking the note before saving. Gaviota Gonsalves PA-C [facility] 01-16-2023 Note HNO ID: [id number] Author: Willow Schmidt Service: ? Author Type: ? Type: Progress Notes Filed: 01/19/2023 7:35 AM Note Text: Patient presents with: Right Shoulder - Fracture: 3 weeks post fracture R proximal humerus. Xrays taken today Patient reports intermittent pain with movement. She takes tylenol and wears a sling. AMB ROOMING INTAKE FLOWSHEET DATA Pain Pain Level: 5 Pain Location: Arm-Upper Right Description: Aching Duration Amount of Time: 3 Duration Units: Weeks Frequency: Intermittent Intervention/Comfort measure: Medication, Other: See comment Comments: sling [facility] 01-16-2023 Note HNO ID: [id number] Author: Marifer Saeed RT(R) Service: ? Author Type: Superintendent Refuse Disposal Type: Progress Notes Filed: 01/16/2023 11:34 AM Note Text: Radiology Service Progress Note PATIENT NAME: Johnny Hobbs DATE OF SERVICE: January 16, 2023 TIME: 11:22 AM PATIENT IDENTITY VERIFICATION COMPLETED USING TWO (2) IDENTIFIERS: Name and Date of confirmed by patient verbally. FALL SCREENING: Has the patient had 2 falls in the last year or 1 fall with injury or currently using an Ambulatory Assistive Device (Walker, Cane, Wheelchair, Crutches, etc.)? No PATIENT GENDER DATA: Female. status: : No status: NO. PATIENT RELEVANT IMPLANT DATA REVIEWED: Yes RADIOLOGY DEPARTMENT: General X-ray: Exam(s) Completed: Upper Extremity X-Ray(s): Shoulder, AP / TRUE AP left Y-view PERIPHERAL IV DATA: Not applicable SIGNED BY: RT Kellie(R) January 16, 2023 11:22 AM [facility] 01-16-2023 History of Present illness Narrative Gaviota Gonsalves PA-C Department of Orthopaedics Orthopaedics [facility] [address] [facility] [address] Dept: [phone] Dept January 16, 2023 CHIEF COMPLAINT: Fracture of the left Shoulder (3 weeks post fracture R proximal humerus. Xrays taken today). ASSESSMENT: S42.255D Closed nondisplaced fracture of greater tuberosity of left humerus with routine healing, subsequent encounter (primary encounter diagnosis) SUMMARY/PLAN: Patient presents 3 weeks status post left proximal humerus fracture after a fall in her garage. She is doing better, still having some pain though it is much improved. Pain today is a 5 out of 10 deep aching. Patient continues to be diligent with icing and is not taking Tylenol. We gave her some tramadol but she did not find it to be beneficial. Complains of some soreness in the left elbow and wrist today which is new. We discussed getting on an oral anti-inflammatory to help with swelling and discomfort. She may remove the sling for light activities. I like to see her back in 2 weeks with some final x-rays. At that time we will get her into some physical therapy as well. Exam: Diffuse tenderness palpation over the left shoulder, there is resolving ecchymosis along the left bicep region. Patient is able to gently flex and extend the left elbow with some subjective stiffness. Range of motion of the shoulder was not tested. Imaging: * * *Final Report* * * DATE OF EXAM: Jan 16 2023 11:35AM WRX 5252 - XR SHLDR >/=3V AP/MANDY AP/OTHR LT / PROCEDURE REASON: Closed fracture of proximal end of left humerus, unspecified fracture morphology * * * * Physician Interpretation * * * * EXAM TITLE: XR SHLDR >/=3V AP/MANDY AP/OTHR LT EXAM DATE/TIME: 01/16/2023 11:35 AM COMPARISON: X-ray shoulder on 01/02/2023 CLINICAL INDICATION/HISTORY: Fracture TECHNIQUE: AP, true AP and Y views of the left shoulder are presented FINDINGS: Nondisplaced vertical fracture again demonstrated in the greater tuberosity of the left humerus extending to the humeral neck. No new fracture seen. The proximal clavicular and glenohumeral joint spaces are maintained. The bones are somewhat osteopenic. There is no significant soft tissue swelling. IMPRESSION IMPRESSION: Left humeral fracture unchanged. Ms. Palafoxelle A Faby was advised as to contrast therapies and/or to take analgesics/anti-inflammatories as needed and all contraindications were reviewed. Supporting Information Below: Medications: Current Outpatient Medications Medication Sig omeprazole (PRILOSEC) 20 mg capsule TAKE 1 CAPSULE DAILY pravastatin (PRAVACHOL) 20 mg tablet Take 1 tablet by mouth once daily. estradiol (ESTRACE) 0.01 % (0.1 mg/gram) vaginal cream Use 1 g vaginally two times a week. multivit,thx,calcium,iron,mins (MULTIVITAMIN AND MINERAL ORAL) Take by mouth. cholecalciferol (VITAMIN D3) 1,000 unit tab tablet Take 1,000 Units by mouth once daily. buPROPion XL (WELLBUTRIN XL) 300 mg 24 hr tablet Take 1 tablet by mouth once daily. diclofenac, EC, (VOLTAREN) 75 mg EC tablet Take 1 tablet by mouth twice daily. FOR PAIN traMADol (ULTRAM) 50 mg tablet Take 1 tablet by mouth at bedtime as needed for pain. (Patient not taking: Reported on 01/16/2023) pumpkin seed extract-soy germ (AZO BLADDER CONTROL) 300 mg cap Take by mouth. (Patient not taking: Reported on 01/02/2023) multivitamins w-minerals(DAILY MULTIVITAMIN-MINERALS TAB) Take one(1) tablet daily. (Patient not taking: Reported on 01/16/2023) No current facility-administered medications for this visit. Allergies: Adhesive Tape (Rosins), Bactrim [Sulfamethoxazole-Trimethoprim], Monosodium Glutamate (Msg), Nickel, and Shellfish Containing Products This note was partially generated using iQiyi voice recognition system, and there may be some incorrect words, spellings, and punctuation that were not noted in checking the note before saving. Gaviota Gonsalves PA-C Patient presents with: Right Shoulder - Fracture: 3 weeks post fracture R proximal humerus. Xrays taken today Patient reports intermittent pain with movement. She takes tylenol and wears a sling. AMB ROOMING INTAKE FLOWSHEET DATA Pain Pain Level: 5 Pain Location: Arm-Upper Right Description: Aching Duration Amount of Time: 3 Duration Units: Weeks Frequency: Intermittent Intervention/Comfort measure: Medication, Other: See comment Comments: sling documented in this encounter [facility] 01-02-2023 Note HNO ID: [id number] Author: Yusra Musa RT(R) Service: ? Author Type: Technologist Type: Progress Notes Filed: 01/02/2023 8:27 AM Note Text: Radiology Service Progress Note PATIENT NAME: Johnny Hobbs DATE OF SERVICE: January 02, 2023 TIME: 8:26 AM PATIENT IDENTITY VERIFICATION COMPLETED USING TWO (2) IDENTIFIERS: Name and Date of confirmed by patient verbally. FALL SCREENING: Has the patient had 2 falls in the last year or 1 fall with injury or currently using an Ambulatory Assistive Device (Walker, Cane, Wheelchair, Crutches, etc.)? Yes, Patient High Risk for Falls What interventions were put in place to prevent falls during this visit? Offered Assistance with Transfers/Clothing and Increased Observations by Caregivers PATIENT GENDER DATA: Female. status: : No status: NO. PATIENT RELEVANT IMPLANT DATA REVIEWED: Not Applicable RADIOLOGY DEPARTMENT: General X-ray: Exam(s) Completed: Upper Extremity X-Ray(s): Shoulder, AP / TRUE AP left PERIPHERAL IV DATA: Not applicable SIGNED BY: RT Sanju(R) January 02, 2023 8:26 AM [facility] 01-02-2023 Note HNO ID: [id number] Author: Gaviota Gonsalves PA-C Service: ? Author Type: Physician Bi Technical Lead Type: Progress Notes Filed: 01/02/2023 10:05 AM Note Text: Gaviota Gonsalves PA-C Department of Orthopaedics Orthopaedics [address] [facility] [address] Dept: [phone] Dept January 02, 2023 CHIEF COMPLAINT: Fracture of the Left Shoulder and Left Proximal humerus fracture (Referred by Daniel Bhakta/) Ms. Johnny Hobbs is a 57 year old female who presents with left shoulder pain after a fall in her garage about 1 week ago. She landed between her car and a wall, she reports that her left arm was forced overhead. Pain today is a 7 out of 10 deep aching in the left shoulder. Patient has been wearing a sling, icing and taking a Tylenol. 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 She is right-hand dominant. She denies any previous left shoulder injuries. ASSESSMENT: S42.202A Closed fracture of proximal end of left humerus, unspecified fracture morphology, initial encounter (primary encounter diagnosis) S42.255A Closed nondisplaced fracture of greater tuberosity of left humerus, initial encounter M25.512 Acute pain of left shoulder PLAN: We will get some updated x-rays today just to make sure that the fracture remains in proper alignment. We will continue with sling and icing. Offered to get her some tramadol for bedtime. I would like to see her back in 2 to 3 weeks with repeat x-ray. Ms. Johnny Hobbs was advised as to contrast therapies and/or to take analgesics/anti-inflammatories as needed and all contraindications were reviewed. OBJECTIVE: Ms. Johnny Hobbs is a pleasant 57 year old in no apparent distress. Gen:LMP 12/31/2013 nl development, obese, no deformities ENT: Normocephalic, normal hearing, moist mucosa CV: Pulses:Radial= 2+ and symmetric, capillary refill < 2 secs, no peripheral edema/varicosities Skin: no rash, bruising or lesions. Good turgor. Psych: cooperative and appropriate, alert and oriented x 3, good mood and affect. Musculoskeletal: Left shoulder with diffuse tenderness to palpation. There is resolving ecchymosis along the anterior shoulder and down into the biceps region. Range of motion of the shoulder was not tested. Patient is able to gently flex and extend the elbow with subjective stiffness. Imaging: IMPRESSION: Acute proximal humeral fracture as described. Retail Buyer: PSCB Transcribe Date/Time: Dec 26 2022 9:42A Dictated by : PABLO DUKE MD This examination was interpreted and the report reviewed and electronically signed by: PABLO DUKE MD on Dec 26 2022 9:43AM EST Results-Findings * * *Final Report* * * DATE OF EXAM: Dec 26 2022 9:40AM WOX [id number] - XR SHOULDER 2V AP/TRUE AP LT / PROCEDURE REASON: Left upper arm injury, initial encounter * * * * Physician Interpretation * * * * TITLE: XR SHOULDER 2V AP/TRUE AP LT CLINICAL INDICATION: Injury with pain TECHNIQUE: Two-view radiographic study of the left shoulder COMPARISON: None FINDINGS: Acute, nondisplaced, vertical fracture of the greater tuberosity of the proximal left humerus. Acromioclavicular joint intact. Supporting Subjective Information Below: Past Surgical History: PAST SURGICAL HISTORY Procedure Laterality Date EXCISION OF MALIGNANT LESION GREATER THAN 1.25 CM 05/22/1994 MELANOMA LEFT LEG LAPAROSCOPY SURG CHOLECYSTECTOMY 04/28/2014 PAST SURGICAL HISTORY OF right CTR PAST SURGICAL HISTORY OF wisdom teeth TONSILLECTOMY PRIMARY/SECONDARY Tonsillectomy Medications: Current Outpatient Medications Medication Sig omeprazole (PRILOSEC) 20 mg capsule TAKE 1 CAPSULE DAILY pravastatin (PRAVACHOL) 20 mg tablet Take 1 tablet by mouth once daily. estradiol (ESTRACE) 0.01 % (0.1 mg/gram) vaginal cream Use 1 g vaginally two times a week. multivit,thx,calcium,iron,mins (MULTIVITAMIN AND MINERAL ORAL) Take by mouth. cholecalciferol (VITAMIN D3) 1,000 unit tab tablet Take 1,000 Units by mouth once daily. buPROPion XL (WELLBUTRIN XL) 300 mg 24 hr tablet Take 1 tablet by mouth once daily. traMADol (ULTRAM) 50 mg tablet Take 1 tablet by mouth at bedtime as needed for pain. pumpkin seed extract-soy germ (AZO BLADDER CONTROL) 300 mg cap Take by mouth. (Patient not taking: Reported on 01/02/2023) multivitamins w-minerals(DAILY MULTIVITAMIN-MINERALS TAB) Take one(1) tablet daily. (Patient not taking: Reported on 01/02/2023) No current facility-administered medications for this visit. Allergies: Adhesive Tape (Rosins), Bactrim [Sulfamethoxazole-Trimethoprim], Monosodium Glutamate (Msg), Nickel, and Shellfish Containing Products ROS: General (negative for fatigue, malaise, weight loss/gain) HEENT (negative for headache, earache, recent vision changes, sinus pain, sore throat) Respiratory (no recent shortness of breath, hemoptysis) CV (negative for chest tightness, palpitations) Musculoskel (more content not included)... [facility] 01-02-2023 Note HNO ID: [id number] Author: Leesa Shelton Ma Service: ? Author Type: ? Type: Progress Notes Filed: 01/02/2023 10:05 AM Note Text: Patient presents with: Left Shoulder - Fracture Left Proximal humerus fracture: Referred by Daniel Bhakta AMB ROOMING INTAKE FLOWSHEET DATA Pain Pain Level: 7 Pain Location: Shoulder-Left Description: Sharp, Aching, Dull Duration Amount of Time: 1 Duration Units: Weeks Frequency: Continuous Intervention/Comfort measure: Medication (sling) Patient states last Monday she was fell in her garage landing on her right side. Her left arm got caught in a box and bent her arm back. Seen in Urgent care. X-rays done. Has been wearing the sling most of the time. Taking Tylenol for pain and helps. Patient states she has a red itchy rash under her arm where her bra is. Patient is right hand dominant. 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 [facility] 01-02-2023 History of Present illness Narrative Radiology Service Progress Note PATIENT NAME: Johnny Hobbs DATE OF SERVICE: January 02, 2023 TIME: 8:26 AM PATIENT IDENTITY VERIFICATION COMPLETED USING TWO (2) IDENTIFIERS: Name and Date of confirmed by patient verbally. FALL SCREENING: Has the patient had 2 falls in the last year or 1 fall with injury or currently using an Ambulatory Assistive Device (Walker, Cane, Wheelchair, Crutches, etc.)? Yes, Patient High Risk for Falls What interventions were put in place to prevent falls during this visit? Offered Assistance with Transfers/Clothing and Increased Observations by Caregivers PATIENT GENDER DATA: Female. status: : No status: NO. PATIENT RELEVANT IMPLANT DATA REVIEWED: Not Applicable RADIOLOGY DEPARTMENT: General X-ray: Exam(s) Completed: Upper Extremity X-Ray(s): Shoulder, AP / TRUE AP left PERIPHERAL IV DATA: Not applicable SIGNED BY: RT Sanju(R) January 02, 2023 8:26 AM documented in this encounter [facility] 12-26-2022 Note HNO ID: [id number] Author: Jessica Cid RT(R) Service: Radiology Author Type: Technologist Type: Progress Notes Filed: 12/26/2022 9:43 AM Note Text: Radiology Service Progress Note PATIENT NAME: Johnny Hobbs DATE OF SERVICE: December 26, 2022 TIME: 9:21 AM PATIENT IDENTITY VERIFICATION COMPLETED USING TWO (2) IDENTIFIERS: Name and Date of confirmed by patient verbally. FALL SCREENING: Has the patient had 2 falls in the last year or 1 fall with injury or currently using an Ambulatory Assistive Device (Walker, Cane, Wheelchair, Crutches, etc.)? No PATIENT GENDER DATA: Female. status: : No status: NO. PATIENT RELEVANT IMPLANT DATA REVIEWED: Yes RADIOLOGY DEPARTMENT: General X-ray: Exam(s) Completed: Upper Extremity X-Ray(s): Shoulder, AP / TRUE AP left and Elbow, left PERIPHERAL IV DATA: Not applicable SIGNED BY: RT Puja(R) December 26, 2022 9:21 AM [facility] 12-26-2022 Note HNO ID: [id number] Author: Daniel Bhakta PA-C Service: ? Author Type: Physician Bi Technical Lead Type: Progress Notes Filed: 12/26/2022 10:56 AM Note Text: 12/26/2022 Patient presents with: Fall Shoulder Injury: Left shoulder at 745 am fall SUBJECTIVE: This is a 56 year old that is here today for Complaint(s) of left shoulder and upper arm pain x 7:45 this morning. States she tripped in the garage and fell more on her right side but her left arm got caught on something and pulled back. Now having intense pain in the left shoulder and upper arm. Denies numbness/tingling, head injury, swelling. PAST MEDICAL HISTORY Diagnosis Date Acne Biliary dyskinesia 04/28/14 s/p nnamdi Carpal tunnel syndrome 11/2018 right hand Hyperlipemia 2014 [place] 1.5% 07/2018 Mood disorder (HCC) Motion sickness Personal history of malignant melanoma of skin 1994 LEFT LEG, Dermatology managed Sleep apnea non compliant with cpap ALLERGIES Adhesive Tape (Rosins), Bactrim [Sulfamethoxazole-Trimethoprim], Monosodium Glutamate (Msg), Nickel, and Shellfish Containing Products MEDICATIONS Current Outpatient Medications Medication Sig pumpkin seed extract-soy germ (AZO BLADDER CONTROL) 300 mg cap Take by mouth. omeprazole (PRILOSEC) 20 mg capsule TAKE 1 CAPSULE DAILY pravastatin (PRAVACHOL) 20 mg tablet Take 1 tablet by mouth once daily. estradiol (ESTRACE) 0.01 % (0.1 mg/gram) vaginal cream Use 1 g vaginally two times a week. multivit,thx,calcium,iron,mins (MULTIVITAMIN AND MINERAL ORAL) Take by mouth. cholecalciferol (VITAMIN D3) 1,000 unit tab tablet Take 1,000 Units by mouth once daily. buPROPion XL (WELLBUTRIN XL) 300 mg 24 hr tablet Take 1 tablet by mouth once daily. multivitamins w-minerals(DAILY MULTIVITAMIN-MINERALS TAB) Take one(1) tablet daily. No current facility-administered medications for this visit. SOCIAL HISTORY Social History Tobacco Use Smoking status: Never Smokeless tobacco: Never Vaping Use Vaping Use: Never used Substance Use Topics Alcohol use: No Drug use: No REVIEW OF SYSTEMS See HPI OBJECTIVE: BP 150/100 Pulse 66 Temp 36.2 ?C (97.1 ?F) Resp 20 Wt 83.3 kg (183 lb 9.6 oz) LMP 12/31/2013 SpO2 99% BMI 32.52 kg/m? APPEARANCE Well appearing, alert, in no acute distress, well-hydrated, well nourished. EXTREMITIES holding left arm against body, internally rotated. Normal ROM wrist, no TTP. Limited ROM of elbow, unable to full assess secondary to pain elicited with movement of shoulder. No TTP olecranon process, medial/lateral epicondyle. + TTP proximal humerus. Limited ROM secondary to pain. Neurovascular status intact distal to injury. Good capillary refill. Sensation grossly intact. 2+/2+ radial pulses ABBY. Sling shoulder immobilizer place-neurovascular status intact post placement. ASSESSMENT/PLAN: 1. Left upper arm injury, initial encounter - ICD9: 959.2, ICD10: S49.92XA (primary diagnosis) Proximal humerus fracture seen on XR. Elbow xray was unremarkable. - XR SHOULDER LIMITED 2V AP/TRUE AP LEFT - XR ELBOW SPECIAL VIEWS AP/LAT/OTHER LEFT 2. Closed fracture of proximal end of left humerus, unspecified fracture morphology, initial encounter - ICD9: 812.00, ICD10: S42.202A Patient placed in shoulder sling immobilizer. Advise rest, ice, elevation, tylenol/motrin prn Reviewed red flags and when to seek care sooner. F/u with ortho in 1 week. Scheduled. Consulted ortho. The patient indicates understanding of these issues and agrees with the plan. Daniel Bhakta PA-C [facility] 10-27-2022 Note HNO ID: [id number] Author: Deyanira White PA-C Service: ? Author Type: Physician Bi Technical Lead Type: Progress Notes Filed: 10/27/2022 12:21 PM Note Text: ESTABLISHED PATIENT OFFICE VISIT HISTORY OF PRESENT ILLNESS: Johnny Hobbs is a 56 year old female, Ht 160 cm (5' 3 ) BMI 32.06 kg/m2 with a PMH significant for recurrent uti's. She just completed macrobid and feels like infection is returning. Pt is on estrogen cream, vitamin c for prevention. Discussed daily macrobid for one month, d'mannose, cranberry, vitamin c supplement, and standing order for urine cultures. . LAB: Creatinine Date Value Ref Range Status 10/20/2022 0.75 0.58 - 0.96 mg/dL Final No results found for: PSA Glucose, Urine (no units) Date Value 10/20/2022 Negative Bilirubin, Urine (no units) Date Value 10/20/2022 Negative Ketones, Urine (no units) Date Value 10/20/2022 Negative Specific [place], Ur (no units) Date Value 10/20/2022 1.021 Hemoglobin/Blood,Ur (no units) Date Value 10/20/2022 3+ pH, Urine (no units) Date Value 10/20/2022 6.0 Protein, Urine (no units) Date Value 10/20/2022 2+ Nitrites (no units) Date Value 10/20/2022 2+ WBC, Urine (no units) Date Value 10/20/2022 >25 /HPF MEDICATIONS: pumpkin seed extract-soy germ (AZO BLADDER CONTROL) 300 mg cap Take by mouth. nitrofurantoin monohydrate and macrocrystal (MACROBID) 100 mg capsule Take 1 capsule by mouth twice daily with meals for 7 days. omeprazole (PRILOSEC) 20 mg capsule TAKE 1 CAPSULE DAILY pravastatin (PRAVACHOL) 20 mg tablet Take 1 tablet by mouth once daily. estradiol (ESTRACE) 0.01 % (0.1 mg/gram) vaginal cream Use 1 g vaginally two times a week. multivit,thx,calcium,iron,mins (MULTIVITAMIN AND MINERAL ORAL) Take by mouth. cholecalciferol (VITAMIN D3) 1,000 unit tab tablet Take 1,000 Units by mouth once daily. buPROPion XL (WELLBUTRIN XL) 300 mg 24 hr tablet Take 1 tablet by mouth once daily. multivitamins w-minerals(DAILY MULTIVITAMIN-MINERALS TAB) Take one(1) tablet daily. nitrofurantoin monohydrate and macrocrystal (MACROBID) 100 mg capsule Take 1 capsule by mouth daily at bedtime. with food for thirty(30) days. Review of Systems HISTORIES PAST MEDICAL HISTORY Diagnosis Date Acne Biliary dyskinesia 04/28/14 s/p nnamdi Carpal tunnel syndrome 11/2018 right hand Hyperlipemia 2014 [place] 1.5% 07/2018 Mood disorder (HCC) Motion sickness Personal history of malignant melanoma of skin 1994 LEFT LEG, Dermatology managed Sleep apnea non compliant with cpap FAMILY HISTORY Problem Relation Age of Onset Hypertension Mother Coronary Artery Disease Father Coronary Artery Disease Maternal Grandmother other (lung cancer) Brother 44 smoker Social History Tobacco Use Smoking status: Never Smokeless tobacco: Never Vaping Use Vaping Use: Never used Substance Use Topics Alcohol use: No Drug use: No PHYSICAL EXAMINATION GENERAL APPEARANCE: Well appearing, alert, in no acute distress, well-hydrated, well nourished. ASSESSMENT/PLAN: 1. Recurrent UTI - ICD9: 599.0, ICD10: N39.0 recurrent - URINE CULTURE - standing order Macrobid daily x 30 days After completing macrobid, d'mannose, cranberry, vitamin c for prevention Deyanira White PA-C I spent a total of 20 minutes on the date of the service which included preparing to see the patient, [id number] patient care, completing clinical documentation, counseling and educating the patient/family/caregiver, and ordering medications, tests, or procedures. [facility] 10-27-2022 History of Present illness Narrative ESTABLISHED PATIENT OFFICE VISIT HISTORY OF PRESENT ILLNESS: Johnny Hobbs is a 56 year old female, Ht 160 cm (5' 3 ) BMI 32.06 kg/m2 with a PMH significant for recurrent uti's. She just completed macrobid and feels like infection is returning. Pt is on estrogen cream, vitamin c for prevention. Discussed daily macrobid for one month, d'mannose, cranberry, vitamin c supplement, and standing order for urine cultures. . LAB: Creatinine Date Value Ref Range Status 10/20/2022 0.75 0.58 - 0.96 mg/dL Final No results found for: PSA Glucose, Urine (no units) Date Value 10/20/2022 Negative Bilirubin, Urine (no units) Date Value 10/20/2022 Negative Ketones, Urine (no units) Date Value 10/20/2022 Negative Specific [place], Ur (no units) Date Value 10/20/2022 1.021 Hemoglobin/Blood,Ur (no units) Date Value 10/20/2022 3+ pH, Urine (no units) Date Value 10/20/2022 6.0 Protein, Urine (no units) Date Value 10/20/2022 2+ Nitrites (no units) Date Value 10/20/2022 2+ WBC, Urine (no units) Date Value 10/20/2022 >25 /HPF MEDICATIONS: pumpkin seed extract-soy germ (AZO BLADDER CONTROL) 300 mg cap Take by mouth. nitrofurantoin monohydrate and macrocrystal (MACROBID) 100 mg capsule Take 1 capsule by mouth twice daily with meals for 7 days. omeprazole (PRILOSEC) 20 mg capsule TAKE 1 CAPSULE DAILY pravastatin (PRAVACHOL) 20 mg tablet Take 1 tablet by mouth once daily. estradiol (ESTRACE) 0.01 % (0.1 mg/gram) vaginal cream Use 1 g vaginally two times a week. multivit,thx,calcium,iron,mins (MULTIVITAMIN AND MINERAL ORAL) Take by mouth. cholecalciferol (VITAMIN D3) 1,000 unit tab tablet Take 1,000 Units by mouth once daily. buPROPion XL (WELLBUTRIN XL) 300 mg 24 hr tablet Take 1 tablet by mouth once daily. multivitamins w-minerals(DAILY MULTIVITAMIN-MINERALS TAB) Take one(1) tablet daily. nitrofurantoin monohydrate and macrocrystal (MACROBID) 100 mg capsule Take 1 capsule by mouth daily at bedtime. with food for thirty(30) days. Review of Systems HISTORIES PAST MEDICAL HISTORY Diagnosis Date Acne Biliary dyskinesia 04/28/14 s/p nnamdi Carpal tunnel syndrome 11/2018 right hand Hyperlipemia 2014 [place] 1.5% 07/2018 Mood disorder (HCC) Motion sickness Personal history of malignant melanoma of skin 1994 LEFT LEG, Dermatology managed Sleep apnea non compliant with cpap FAMILY HISTORY Problem Relation Age of Onset Hypertension Mother Coronary Artery Disease Father Coronary Artery Disease Maternal Grandmother other (lung cancer) Brother 44 smoker Social History Tobacco Use Smoking status: Never Smokeless tobacco: Never Vaping Use Vaping Use: Never used Substance Use Topics Alcohol use: No Drug use: No PHYSICAL EXAMINATION GENERAL APPEARANCE: Well appearing, alert, in no acute distress, well-hydrated, well nourished. ASSESSMENT/PLAN: 1. Recurrent UTI - ICD9: 599.0, ICD10: N39.0 recurrent - URINE CULTURE - standing order Macrobid daily x 30 days After completing macrobid, d'mannose, cranberry, vitamin c for prevention Deyanira White PA-C I spent a total of 20 minutes on the date of the service which included preparing to see the patient, [id number] patient care, completing clinical documentation, counseling and educating the patient/family/caregiver, and ordering medications, tests, or procedures. documented in this encounter [facility] 10-20-2022 Miscellaneous Notes Patient identified by name and date of . Reviewed patient's blood test results. She may continue antibiotic as prescribed as urine culture is still processing. Lisa Cid APRN.CNP documented in this encounter [facility] 10-20-2022 Note HNO ID: [id number] Author: Deyanira White PA-C Service: ? Author Type: Physician Bi Technical Lead Type: Progress Notes Filed: 10/20/2022 11:48 AM Note Text: ESTABLISHED PATIENT OFFICE VISIT HISTORY OF PRESENT ILLNESS: Johnny Hobbs is a 56 year old female, Ht 160 cm (5' 3 ) BMI 32.06 kg/m2 with a PMH significant for gross hematuria, uti. Pt has had 3 cultures grow mixed organisms, will do catheter specimen today. She was at psychiatric, macrobid given to start. She will start after appt. . LAB: Creatinine Date Value Ref Range Status 12/16/2021 0.71 0.58 - 0.96 mg/dL Final No results found for: PSA Glucose, Urine (no units) Date Value 06/09/2022 Negative Bilirubin, Urine (no units) Date Value 06/09/2022 Negative Ketones, Urine (no units) Date Value 06/09/2022 Negative Specific [place], Ur (no units) Date Value 06/09/2022 1.027 Hemoglobin/Blood,Ur (no units) Date Value 06/09/2022 3+ pH, Urine (no units) Date Value 06/09/2022 6.5 Protein, Urine (no units) Date Value 06/09/2022 2+ Nitrites (no units) Date Value 06/09/2022 Negative WBC, Urine (no units) Date Value 06/09/2022 >25 /HPF MEDICATIONS: pumpkin seed extract-soy germ (AZO BLADDER CONTROL) 300 mg cap Take by mouth. nitrofurantoin monohydrate and macrocrystal (MACROBID) 100 mg capsule Take 1 capsule by mouth twice daily with meals for 7 days. omeprazole (PRILOSEC) 20 mg capsule TAKE 1 CAPSULE DAILY pravastatin (PRAVACHOL) 20 mg tablet Take 1 tablet by mouth once daily. estradiol (ESTRACE) 0.01 % (0.1 mg/gram) vaginal cream Use 1 g vaginally two times a week. multivit,thx,calcium,iron,mins (MULTIVITAMIN AND MINERAL ORAL) Take by mouth. cholecalciferol (VITAMIN D3) 1,000 unit tab tablet Take 1,000 Units by mouth once daily. buPROPion XL (WELLBUTRIN XL) 300 mg 24 hr tablet Take 1 tablet by mouth once daily. multivitamins w-minerals(DAILY MULTIVITAMIN-MINERALS TAB) Take one(1) tablet daily. Review of Systems HISTORIES PAST MEDICAL HISTORY Diagnosis Date Acne Biliary dyskinesia 04/28/14 s/p nnamdi Carpal tunnel syndrome 11/2018 right hand Hyperlipemia 2014 [place] 1.5% 07/2018 Mood disorder (HCC) Motion sickness Personal history of malignant melanoma of skin 1994 LEFT LEG, Dermatology managed Sleep apnea non compliant with cpap FAMILY HISTORY Problem Relation Age of Onset Hypertension Mother Coronary Artery Disease Father Coronary Artery Disease Maternal Grandmother other (lung cancer) Brother 44 smoker Social History Tobacco Use Smoking status: Never Smokeless tobacco: Never Vaping Use Vaping Use: Never used Substance Use Topics Alcohol use: No Drug use: No PHYSICAL EXAMINATION GENERAL APPEARANCE: Well appearing, alert, in no acute distress, well-hydrated, well nourished. Under sterile conditions, catheterization using red rubber catheter for collection of urine for C and S. Rust colored urine in sample. ASSESSMENT/PLAN: 1. Recurrent UTI - ICD9: 599.0, ICD10: N39.0 (primary diagnosis) recurrent - URINE CULTURE - CYTOLOGY NON-CLINICAL TRIAL LEADER - URINALYSIS, WITH MICROSCOPIC Catheter specimen today Rocephin injection Starting macrobid Estrogen cream for uti prevention 2. Gross hematuria - ICD9: 599.71, ICD10: R31.0 - CYTOLOGY NON-CLINICAL TRIAL LEADER - URINALYSIS, WITH MICROSCOPIC Low risk for urologic cancer Will schedule cystoscopy after uti has cleared Deyanira White PA-C [facility] 10-20-2022 History of Present illness Narrative ESTABLISHED PATIENT OFFICE VISIT HISTORY OF PRESENT ILLNESS: Johnny Hobbs is a 56 year old female, Ht 160 cm (5' 3 ) BMI 32.06 kg/m2 with a PMH significant for gross hematuria, uti. Pt has had 3 cultures grow mixed organisms, will do catheter specimen today. She was at psychiatric, macrobid given to start. She will start after appt. . LAB: Creatinine Date Value Ref Range Status 12/16/2021 0.71 0.58 - 0.96 mg/dL Final No results found for: PSA Glucose, Urine (no units) Date Value 06/09/2022 Negative Bilirubin, Urine (no units) Date Value 06/09/2022 Negative Ketones, Urine (no units) Date Value 06/09/2022 Negative Specific [place], Ur (no units) Date Value 06/09/2022 1.027 Hemoglobin/Blood,Ur (no units) Date Value 06/09/2022 3+ pH, Urine (no units) Date Value 06/09/2022 6.5 Protein, Urine (no units) Date Value 06/09/2022 2+ Nitrites (no units) Date Value 06/09/2022 Negative WBC, Urine (no units) Date Value 06/09/2022 >25 /HPF MEDICATIONS: pumpkin seed extract-soy germ (AZO BLADDER CONTROL) 300 mg cap Take by mouth. nitrofurantoin monohydrate and macrocrystal (MACROBID) 100 mg capsule Take 1 capsule by mouth twice daily with meals for 7 days. omeprazole (PRILOSEC) 20 mg capsule TAKE 1 CAPSULE DAILY pravastatin (PRAVACHOL) 20 mg tablet Take 1 tablet by mouth once daily. estradiol (ESTRACE) 0.01 % (0.1 mg/gram) vaginal cream Use 1 g vaginally two times a week. multivit,thx,calcium,iron,mins (MULTIVITAMIN AND MINERAL ORAL) Take by mouth. cholecalciferol (VITAMIN D3) 1,000 unit tab tablet Take 1,000 Units by mouth once daily. buPROPion XL (WELLBUTRIN XL) 300 mg 24 hr tablet Take 1 tablet by mouth once daily. multivitamins w-minerals(DAILY MULTIVITAMIN-MINERALS TAB) Take one(1) tablet daily. Review of Systems HISTORIES PAST MEDICAL HISTORY Diagnosis Date Acne Biliary dyskinesia 04/28/14 s/p nnamdi Carpal tunnel syndrome 11/2018 right hand Hyperlipemia 2014 [place] 1.5% 07/2018 Mood disorder (HCC) Motion sickness Personal history of malignant melanoma of skin 1994 LEFT LEG, Dermatology managed Sleep apnea non compliant with cpap FAMILY HISTORY Problem Relation Age of Onset Hypertension Mother Coronary Artery Disease Father Coronary Artery Disease Maternal Grandmother other (lung cancer) Brother 44 smoker Social History Tobacco Use Smoking status: Never Smokeless tobacco: Never Vaping Use Vaping Use: Never used Substance Use Topics Alcohol use: No Drug use: No PHYSICAL EXAMINATION GENERAL APPEARANCE: Well appearing, alert, in no acute distress, well-hydrated, well nourished. Under sterile conditions, catheterization using red rubber catheter for collection of urine for C and S. Rust colored urine in sample. ASSESSMENT/PLAN: 1. Recurrent UTI - ICD9: 599.0, ICD10: N39.0 (primary diagnosis) recurrent - URINE CULTURE - CYTOLOGY NON-CLINICAL TRIAL LEADER - URINALYSIS, WITH MICROSCOPIC Catheter specimen today Rocephin injection Starting macrobid Estrogen cream for uti prevention 2. Gross hematuria - ICD9: 599.71, ICD10: R31.0 - CYTOLOGY NON-CLINICAL TRIAL LEADER - URINALYSIS, WITH MICROSCOPIC Low risk for urologic cancer Will schedule cystoscopy after uti has cleared Deyanira White PA-C documented in this encounter [facility] 10-20-2022 Nurse Note Pt given rocephin injection as documented in JUL. Pt tolerated well. Zina Quan RN documented in this encounter [facility] 10-20-2022 Note HNO ID: [id number] Author: Lisa Cid APRN.MANAGER AUDIT Service: ? Author Type: Nurse Practitioner Type: Progress Notes Filed: 10/20/2022 8:02 AM Note Text: Subjective HPI Johnny Hobbs is a 56 year old female who presents with 2 weeks of urinary frequency. She thought she was getting overactive bladder so she started taking AZO bladder control medication. Last night she developed pain in her right mid back and had blood in her urine. She denies fever, chills, vomiting or abdominal pain. She has had some slight nausea today. She has taken Aleve for her back pain. States she has a history of frequent UTIs and has seen a urologist in the past. Review of Systems Constitutional: Negative for chills and fever. Respiratory: Negative. Cardiovascular: Negative. Gastrointestinal: Positive for nausea. Negative for abdominal pain and vomiting. Genitourinary: Positive for frequency and hematuria. Negative for dysuria, flank pain and urgency. Musculoskeletal: Positive for back pain. BP 126/82 Pulse 74 Temp 36.6 ?C (97.8 ?F) (Tympanic) Resp 14 Wt 82.1 kg (181 lb) LMP 12/31/2013 SpO2 98% BMI 32.06 kg/m? PAST MEDICAL HISTORY Diagnosis Date Acne Biliary dyskinesia 04/28/14 s/p nnamdi Carpal tunnel syndrome 11/2018 right hand Hyperlipemia 2014 [place] 1.5% 07/2018 Mood disorder (HCC) Motion sickness Personal history of malignant melanoma of skin 1994 LEFT LEG, Dermatology managed Sleep apnea non compliant with cpap PAST SURGICAL HISTORY Procedure Laterality Date EXCISION OF MALIGNANT LESION GREATER THAN 1.25 CM 05/22/1994 MELANOMA LEFT LEG LAPAROSCOPY SURG CHOLECYSTECTOMY 04/28/2014 PAST SURGICAL HISTORY OF right CTR PAST SURGICAL HISTORY OF wisdom teeth TONSILLECTOMY PRIMARY/SECONDARY Tonsillectomy ALLERGIES Adhesive Tape (Rosins), Bactrim [Sulfamethoxazole-Trimethoprim], Monosodium Glutamate (Msg), Nickel, and Shellfish Containing Products MEDICATIONS pumpkin seed extract-soy germ (AZO BLADDER CONTROL) 300 mg cap Take by mouth. omeprazole (PRILOSEC) 20 mg capsule TAKE 1 CAPSULE DAILY pravastatin (PRAVACHOL) 20 mg tablet Take 1 tablet by mouth once daily. estradiol (ESTRACE) 0.01 % (0.1 mg/gram) vaginal cream Use 1 g vaginally two times a week. multivit,thx,calcium,iron,mins (MULTIVITAMIN AND MINERAL ORAL) Take by mouth. cholecalciferol (VITAMIN D3) 1,000 unit tab tablet Take 1,000 Units by mouth once daily. buPROPion XL (WELLBUTRIN XL) 300 mg 24 hr tablet Take 1 tablet by mouth once daily. multivitamins w-minerals(DAILY MULTIVITAMIN-MINERALS TAB) Take one(1) tablet daily. nitrofurantoin monohydrate and macrocrystal (MACROBID) 100 mg capsule Take 1 capsule by mouth twice daily with meals for 7 days. FAMILY HISTORY Problem Relation Age of Onset Hypertension Mother Coronary Artery Disease Father Coronary Artery Disease Maternal Grandmother other (lung cancer) Brother 44 smoker Social History Tobacco Use Smoking status: Never Smokeless tobacco: Never Vaping Use Vaping Use: Never used Substance Use Topics Alcohol use: No Drug use: No Objective Physical Exam Vitals and nursing note reviewed. Constitutional: General: She is not in acute distress. Appearance: Normal appearance. She is not ill-appearing. Cardiovascular: Rate and Rhythm: Normal rate and regular rhythm. Heart sounds: Normal heart sounds. Pulmonary: Effort: Pulmonary effort is normal. No respiratory distress. Breath sounds: Normal breath sounds. No wheezing or rales. Abdominal: General: There is no distension. Palpations: Abdomen is soft. There is no mass. Tenderness: There is abdominal tenderness in the suprapubic area. There is no right CVA tenderness, left CVA tenderness or guarding. Skin: General: Skin is warm and dry. Neurological: Mental Status: She is alert. ASSESSMENT/PLAN: 1. Urinary frequency - ICD9: 788.41, ICD10: R35.0 (primary diagnosis) acute - UA positive for mable esterase, hematuria, proteinuria, nitrates, and bilirubin - Send urine for culture - Begin treatment with Macrobid 100 mg BID for 5 days - Patient education for prevention given - UA DIP, URINE (POC) - URINE CULTURE - NITROFURANTOIN MONOHYDRATE AND MACROCRYSTAL 100 MG ORAL CAP 2. Bilirubinemia - ICD9: 782.4, ICD10: E80.6 - CBC + DIFF - COMP METABOLIC PANEL - Follow-up with your PCP in 3-5 days if symptoms have not improved or sooner if symptoms worsen - Discussed red flags and need for immediate medical evaluation if any occur. - Discussed supportive care treatment with fluids, rest and analgesia. - Discussed expected course of illness Lisa Cid APRN.[facility] 10-20-2022 History of Present illness Narrative Subjective HPI Johnny Hobbs is a 56 year old female who presents with 2 weeks of urinary frequency. She thought she was getting overactive bladder so she started taking AZO bladder control medication. Last night she developed pain in her right mid back and had blood in her urine. She denies fever, chills, vomiting or abdominal pain. She has had some slight nausea today. She has taken Aleve for her back pain. States she has a history of frequent UTIs and has seen a urologist in the past. Review of Systems Constitutional: Negative for chills and fever. Respiratory: Negative. Cardiovascular: Negative. Gastrointestinal: Positive for nausea. Negative for abdominal pain and vomiting. Genitourinary: Positive for frequency and hematuria. Negative for dysuria, flank pain and urgency. Musculoskeletal: Positive for back pain. BP 126/82 Pulse 74 Temp 36.6 C (97.8 F) (Tympanic) Resp 14 Wt 82.1 kg (181 lb) LMP 12/31/2013 SpO2 98% BMI 32.06 kg/m PAST MEDICAL HISTORY Diagnosis Date Acne Biliary dyskinesia 04/28/14 s/p nnamdi Carpal tunnel syndrome 11/2018 right hand Hyperlipemia 2014 [place] 1.5% 07/2018 Mood disorder (HCC) Motion sickness Personal history of malignant melanoma of skin 1994 LEFT LEG, Dermatology managed Sleep apnea non compliant with cpap PAST SURGICAL HISTORY Procedure Laterality Date EXCISION OF MALIGNANT LESION GREATER THAN 1.25 CM 05/22/1994 MELANOMA LEFT LEG LAPAROSCOPY SURG CHOLECYSTECTOMY 04/28/2014 PAST SURGICAL HISTORY OF right CTR PAST SURGICAL HISTORY OF wisdom teeth TONSILLECTOMY PRIMARY/SECONDARY <AGE 14 Tonsillectomy ALLERGIES Adhesive Tape (Rosins), Bactrim [Sulfamethoxazole-Trimethoprim], Monosodium Glutamate (Msg), Nickel, and Shellfish Containing Products MEDICATIONS pumpkin seed extract-soy germ (AZO BLADDER CONTROL) 300 mg cap Take by mouth. omeprazole (PRILOSEC) 20 mg capsule TAKE 1 CAPSULE DAILY pravastatin (PRAVACHOL) 20 mg tablet Take 1 tablet by mouth once daily. estradiol (ESTRACE) 0.01 % (0.1 mg/gram) vaginal cream Use 1 g vaginally two times a week. multivit,thx,calcium,iron,mins (MULTIVITAMIN AND MINERAL ORAL) Take by mouth. cholecalciferol (VITAMIN D3) 1,000 unit tab tablet Take 1,000 Units by mouth once daily. buPROPion XL (WELLBUTRIN XL) 300 mg 24 hr tablet Take 1 tablet by mouth once daily. multivitamins w-minerals(DAILY MULTIVITAMIN-MINERALS TAB) Take one(1) tablet daily. nitrofurantoin monohydrate and macrocrystal (MACROBID) 100 mg capsule Take 1 capsule by mouth twice daily with meals for 7 days. FAMILY HISTORY Problem Relation Age of Onset Hypertension Mother Coronary Artery Disease Father Coronary Artery Disease Maternal Grandmother other (lung cancer) Brother 44 smoker Social History Tobacco Use Smoking status: Never Smokeless tobacco: Never Vaping Use Vaping Use: Never used Substance Use Topics Alcohol use: No Drug use: No Objective Physical Exam Vitals and nursing note reviewed. Constitutional: General: She is not in acute distress. Appearance: Normal appearance. She is not ill-appearing. Cardiovascular: Rate and Rhythm: Normal rate and regular rhythm. Heart sounds: Normal heart sounds. Pulmonary: Effort: Pulmonary effort is normal. No respiratory distress. Breath sounds: Normal breath sounds. No wheezing or rales. Abdominal: General: There is no distension. Palpations: Abdomen is soft. There is no mass. Tenderness: There is abdominal tenderness in the suprapubic area. There is no right CVA tenderness, left CVA tenderness or guarding. Skin: General: Skin is warm and dry. Neurological: Mental Status: She is alert. ASSESSMENT/PLAN: 1. Urinary frequency - ICD9: 788.41, ICD10: R35.0 (primary diagnosis) acute - UA positive for mable esterase, hematuria, proteinuria, nitrates, and bilirubin - Send urine for culture - Begin treatment with Macrobid 100 mg BID for 5 days - Patient education for prevention given - UA DIP, URINE (POC) - URINE CULTURE - NITROFURANTOIN MONOHYDRATE & MACROCRYSTAL 100 MG ORAL CAP 2. Bilirubinemia - ICD9: 782.4, ICD10: E80.6 - CBC + DIFF - COMP METABOLIC PANEL - Follow-up with your PCP in 3-5 days if symptoms have not improved or sooner if symptoms worsen - Discussed red flags and need for immediate medical evaluation if any occur. - Discussed supportive care treatment with fluids, rest and analgesia. - Discussed expected course of illness Lisa Cid APRN.[facility] documented in this encounter [facility] 10-20-2022 Instructions Lisa Cid APRN.CNP - 10/20/2022 7:54 AM EDT ASSESSMENT/PLAN: 1. Urinary frequency - ICD9: 788.41, ICD10: R35.0 (primary diagnosis) acute - UA positive for mable esterase, hematuria, proteinuria, nitrates, and bilirubin - Send urine for culture - Begin treatment with Macrobid 100 mg BID for 5 days - Patient education for prevention given - UA DIP, URINE (POC) - URINE CULTURE - NITROFURANTOIN MONOHYDRATE & MACROCRYSTAL 100 MG ORAL CAP 2. Bilirubinemia - ICD9: 782.4, ICD10: E80.6 - CBC + DIFF - COMP METABOLIC PANEL - Follow-up with your PCP in 3-5 days if symptoms have not improved or sooner if symptoms worsen - Discussed red flags and need for immediate medical evaluation if any occur. - Discussed supportive care treatment with fluids, rest and analgesia. - Discussed expected course of illness Lisa Cid APRN.CNP [facility] PATIENT INFO BLADDER INFECTION OVERVIEW Bladder infections are one of the most common infections, causing symptoms of burning with urination and needing to urinate frequently. A bladder infection is a type of urinary tract infection (UTI). Bladder infections are more common is women than men. Most women have an uncomplicated bladder infection that is easily treated with a short course of antibiotics. In men, bladder infections may also affect the prostate gland, and a longer course of treatment may be needed. BLADDER INFECTION CAUSES The urinary tract includes the kidneys (which filter urine), ureters (the tube that carries urine from the kidneys to the bladder), the bladder (which stores urine), and urethra (the tube that carries urine out of the bladder). Bacteria do not normally live in these areas. However, bacteria normally live close to the urethra in women and men who are not circumcised. Bladder infections occur when bacteria travel up the urethra into the bladder. Factors that increase the risk of developing a bladder infection include: Vaginal sex Use of spermicides History of past bladder infections Diabetes In men, not being circumcised or having anal sex increase the risk of bladder infections. BLADDER INFECTION SYMPTOMS The typical symptoms of a bladder infection include: Pain or burning when urinating Frequent need to urinate Urgent need to urinate Blood in the urine Fever, back pain, nausea, or vomiting are not common symptoms of a bladder infection, but can occur in people with a kidney infection (pyelonephritis). If you have these symptoms, you should call your doctor or nurse immediately. Is it a bladder infection or something else? -- Burning with urination can also occur in people with vaginitis (eg, yeast infection) or urethritis (inflammation of the urethra). For this reason, it is important to call your healthcare provider before assuming you have a bladder infection. BLADDER INFECTION DIAGNOSIS Simple bladder infections are usually diagnosed based upon your symptoms alone. However, most patients, especially those who have bladder infection symptoms for the first time, should see a healthcare provider for urine testing. Urine culture -- A urine culture is a test that uses a sample of urine to try and grow bacteria in a laboratory. It usually requires about 48 hours to get results. However, a urine culture is not always required to diagnose a bladder infection. Urine culture is often recommended if: You have never had a bladder infection before You have symptoms that are not typical for bladder infection You have had resistant bladder infections before You have frequent bladder infections You do not begin to feel better within 24 to 48 hours after starting antibiotics You are BLADDER INFECTION TREATMENT Bladder infection -- In young, healthy adolescents and adults with a bladder infection, the usual treatment includes a three to seven day course of antibiotics. The typical drugs chosen are: trimethoprim-sulfamethoxazole (Bactrim ), nitrofurantoin (Macrobid ), ciprofloxacin (Cipro ) or levofloxacin (Levaquin ). In men, the infection may involve your prostate gland and treatment is usually given for at least 7 days. Your symptoms should begin to resolve within one day after starting treatment. It is important to take the full course of antibiotics to completely eliminate the infection. If your symptoms persist for more than two or three days after starting treatment, call your healthcare provider. If needed, you can take a prescription medication that numbs the bladder and urethra (phenazopyridine [Pyridium ]) to reduce the burning pain of some UTIs. A similar medication is available without a prescription (eg, Uristat). Both medications change the color of the urine (usually blue or orange) and can interfere with laboratory testing. You should not take these medications for more than 48 hours due to the risk of side effects. These medications do not treat the infection and must be taken along with an antibiotic. Some providers recommend drinking more fluids while treating bladder infections to help flush bacteria from the bladder. Others believe that drinking more fluids may dilute the antibiotic in the bladder and make the medication less effective. No studies have been performed to address this issue. There are also no good studies on the effectiveness of cranberry juice for treating a bladder infection; we do not recommend using cranberry juice to treat bladder infections. Follow-up care -- Follow-up testing is not needed in healthy, young men or women with a bladder infection if symptoms resolve. women are usually asked to have a repeat urine culture one to two weeks after treatment has ended to make sure the bacteria are no longer in the urine. RECURRENT BLADDER INFECTIONS Bladder infections versus other causes -- Some adults, especially women, develop bladder infections frequently. In this case, it is important to confirm that your symptoms (eg, pain or burning, frequency, and urgency) are caused by a bladder infection. Symptoms are usually similar from one infection to another. The best way to confirm an infection is to have a urine culture. If your urine culture is negative for infection, other causes of pain, burning, and frequency should be investigated. There is no reason to take antibiotics if your urine culture is negative. Need for further testing -- If you continue to develop bladder infections, you may require further testing. If you continue to notice blood in your urine after your bladder infection has cleared, you should have further testing. Preventing recurrent UTIs -- Women with recurrent urinary tract infections may be advised to take steps to prevent bladder infections, including one or more of the following: Changes in control -- Women who develop frequent bladder infections and use spermicides, particularly those who also use a diaphragm, may be encouraged to use an alternate method of control. Cranberry products -- Taking cranberry juice or cranberry tablets has been promoted as one way to help prevent frequent bladder infections. However, this has not been proven. Drinking more fluid and urinating after intercourse -- Although studies have not proven that drinking more fluids or urinating soon after intercourse can prevent infection, some healthcare providers recommend these measures since they are not harmful. Drinking more fluid may help to wash out bacteria that enter the bladder. Postmenopausal women -- Postmenopausal women who develop recurrent bladder infections may benefit from using vaginal estrogen. Vaginal estrogen is available in a flexible ring that is worn in the vagina for three months (eg, Estring ), a small tablet (Vagifem ), or a cream (eg, Premarin or Estrace ). Vaginal estrogen is discussed in more detail in a separate topic review. Antibiotics -- A preventive antibiotic treatment may be recommended if you repeatedly develop bladder infections and have not responded to other preventive measures. Antibiotics are highly effective in preventing recurrent bladder infections and can be taken in several different ways. Preventive antibiotic -- You can take a low dose of an antibiotic once per day or three times per week for six months to several years. Antibiotics following intercourse -- In women who develop urinary tract infections after sex, taking a single low dose antibiotic after intercourse can help to prevent bladder infections. Self-treatment -- A plan to begin antibiotics at the first sign of a bladder infection may be recommended in some situations. Before starting this regimen, it is important that you have had testing (urine cultures) to confirm that your symptoms are caused by a bladder infection; some people have symptoms of a bladder infection but do not actually have an infection. documented in this encounter [facility] 09-20-2022 Note HNO ID: [id number] Author: Barbara Erwin APRN.MANAGER AUDIT Service: ? Author Type: Nurse Practitioner Type: Progress Notes Filed: 09/20/2022 2:08 PM Note Text: ESTABLISHED PATIENT OFFICE VISIT HISTORY OF PRESENT ILLNESS Johnny Hobbs is a 56 year old female with h/I UTI who presents today for follow up. Patient recently treated with 5 days of Macrobid for UTI with improvement. She still c/o mild bladder pressure or aching but feeling better. No gross hematuria. No dysuria. No fever or chills. Last few urine cultures have resulted in insignificant growth or mixed microbiota. Discussed getting cathed culture if symptoms return. UA negative today Flank pain resolved. She is using estrace cream 2 weekly Vitamin C And increasing water intake. Cathed urine culture if symptoms return. LAB RESULTS Creatinine Date Value Ref Range Status 12/16/2021 0.71 0.58 - 0.96 mg/dL Final No results found for: PSA Color (no units) Date Value 06/09/2022 Red Clarity (no units) Date Value 06/09/2022 Turbid Glucose, Urine (no units) Date Value 06/09/2022 Negative Bilirubin, Urine (no units) Date Value 06/09/2022 Negative Ketones, Urine (no units) Date Value 06/09/2022 Negative Specific [place], Ur (no units) Date Value 06/09/2022 1.027 Hemoglobin/Blood,Ur (no units) Date Value 06/09/2022 3+ pH, Urine (no units) Date Value 06/09/2022 6.5 Protein, Urine (no units) Date Value 06/09/2022 2+ Urobilinogen (no units) Date Value 06/09/2022 Negative Nitrites (no units) Date Value 06/09/2022 Negative Leuk Esterase (no units) Date Value 06/09/2022 500 Mable/mL MEDICATIONS: omeprazole (PRILOSEC) 20 mg capsule TAKE 1 CAPSULE DAILY pravastatin (PRAVACHOL) 20 mg tablet Take 1 tablet by mouth once daily. estradiol (ESTRACE) 0.01 % (0.1 mg/gram) vaginal cream Use 1 g vaginally two times a week. multivit,thx,calcium,iron,mins (MULTIVITAMIN AND MINERAL ORAL) Take by mouth. cholecalciferol (VITAMIN D3) 1,000 unit tab tablet Take 1,000 Units by mouth once daily. buPROPion XL (WELLBUTRIN XL) 300 mg 24 hr tablet Take 1 tablet by mouth once daily. multivitamins w-minerals(DAILY MULTIVITAMIN-MINERALS TAB) Take one(1) tablet daily. REVIEW OF SYSTEMS CONSTITUTIONAL: Patient reports no recent fever or weight loss CARDIOVASCULAR: No chest pain, palpitations or ankle edema. RESPIRATORY: No wheezing, frequent cough or shortness of breath GENITOURINARY: See HPI HISTORIES PAST MEDICAL HISTORY Diagnosis Date Acne Biliary dyskinesia 04/28/14 s/p nnamdi Carpal tunnel syndrome 11/2018 right hand Hyperlipemia 2014 [place] 1.5% 07/2018 Mood disorder (HCC) Motion sickness Personal history of malignant melanoma of skin 1994 LEFT LEG, Dermatology managed Sleep apnea non compliant with cpap FAMILY HISTORY Problem Relation Age of Onset Hypertension Mother Coronary Artery Disease Father Coronary Artery Disease Maternal Grandmother other (lung cancer) Brother 44 smoker PAST SURGICAL HISTORY Procedure Laterality Date EXCISION OF MALIGNANT LESION GREATER THAN 1.25 CM 05/22/1994 MELANOMA LEFT LEG LAPAROSCOPY SURG CHOLECYSTECTOMY 04/28/2014 PAST SURGICAL HISTORY OF right CTR PAST SURGICAL HISTORY OF wisdom teeth TONSILLECTOMY PRIMARY/SECONDARY Tonsillectomy SOCIAL HISTORY Social History Tobacco Use Smoking status: Never Smokeless tobacco: Never Vaping Use Vaping Use: Never used Substance Use Topics Alcohol use: No Drug use: No PHYSICAL EXAMINATION General appearance: Well appearing, alert, in no acute distress, well-hydrated, well nourished.. BACK: no pain to palpation over spine or costovertebral angles. MUSCULOSKELETAL: Negative for joint pain or swelling. RESPIRATORY: Normal respiratory effort. SKIN: Normal color, no rash, no lesions. ASSESSMENT/PLAN: 1. Urinary tract infection without hematuria, site unspecified - ICD9: 599.0, ICD10: N39.0 (primary diagnosis) - URINE CULTURE Barbara Erwin APRN.[facility] 09-10-2022 Note HNO ID: [id number] Author: OVI Pappas Service: ? Author Type: Physician Bi Technical Lead Type: Progress Notes Filed: 09/10/2022 10:38 AM Note Text: This note was created using NoteWriter. Subjective Johnny Hobbs is a 56 year old female. HPI 56-year-old female presents for UTI symptoms. Patient states she has been having frequency, burning, blood in the urine for the past 4 to 5 days. She states that she has been drinking water and thought she may have flushed a UTI out, but last night she noticed blood in her urine. No flank pain, vomiting, fevers. She does have a little bit of back pain. She has had UTIs in the past. In May she had a urine culture which did not reveal any bacterial growth. She denies any history of abnormal kidney function. She has seen a specialist in the past for UTIs. PAST MEDICAL HISTORY Diagnosis Date Acne Biliary dyskinesia 04/28/14 s/p nnamdi Carpal tunnel syndrome 11/2018 right hand Hyperlipemia 2014 [place] 1.5% 07/2018 Mood disorder (HCC) Motion sickness Personal history of malignant melanoma of skin 1994 LEFT LEG, Dermatology managed Sleep apnea non compliant with cpap PAST SURGICAL HISTORY Procedure Laterality Date EXCISION OF MALIGNANT LESION GREATER THAN 1.25 CM 05/22/1994 MELANOMA LEFT LEG LAPAROSCOPY SURG CHOLECYSTECTOMY 04/28/2014 PAST SURGICAL HISTORY OF right CTR PAST SURGICAL HISTORY OF wisdom teeth TONSILLECTOMY PRIMARY/SECONDARY Tonsillectomy ALLERGIES Adhesive Tape (Rosins), Bactrim [Sulfamethoxazole-Trimethoprim], Monosodium Glutamate (Msg), Nickel, and Shellfish Containing Products MEDICATIONS omeprazole (PRILOSEC) 20 mg capsule TAKE 1 CAPSULE DAILY pravastatin (PRAVACHOL) 20 mg tablet Take 1 tablet by mouth once daily. estradiol (ESTRACE) 0.01 % (0.1 mg/gram) vaginal cream Use 1 g vaginally two times a week. multivit,thx,calcium,iron,mins (MULTIVITAMIN AND MINERAL ORAL) Take by mouth. cholecalciferol (VITAMIN D3) 1,000 unit tab tablet Take 1,000 Units by mouth once daily. buPROPion XL (WELLBUTRIN XL) 300 mg 24 hr tablet Take 1 tablet by mouth once daily. multivitamins w-minerals(DAILY MULTIVITAMIN-MINERALS TAB) Take one(1) tablet daily. nitrofurantoin monohydrate and macrocrystal (MACROBID) 100 mg capsule Take 1 capsule by mouth twice daily for 5 days. FAMILY HISTORY Problem Relation Age of Onset Hypertension Mother Coronary Artery Disease Father Coronary Artery Disease Maternal Grandmother other (lung cancer) Brother 44 smoker Social History Tobacco Use Smoking status: Never Smokeless tobacco: Never Vaping Use Vaping Use: Never used Substance Use Topics Alcohol use: No Drug use: No Review of Systems Constitutional: Negative for chills and fever. HENT: Negative for congestion, ear pain and sore throat. Respiratory: Negative for cough and shortness of breath. Cardiovascular: Negative for chest pain. Gastrointestinal: Negative for diarrhea and vomiting. Genitourinary: Positive for dysuria, frequency and hematuria. Negative for pelvic pain. Objective BP 118/78 Pulse 76 Temp 36.1 ?C (97 ?F) Resp 21 Wt 82.1 kg (181 lb) LMP 12/31/2013 SpO2 98% BMI 32.06 kg/m? Physical Exam Vitals and nursing note reviewed. Constitutional: General: She is not in acute distress. Appearance: Normal appearance. She is not toxic-appearing. HENT: Nose: Nose normal. Mouth/Throat: Mouth: Mucous membranes are moist. Eyes: Conjunctiva/sclera: Conjunctivae normal. Cardiovascular: Rate and Rhythm: Normal rate and regular rhythm. Pulmonary: Effort: Pulmonary effort is normal. Breath sounds: Normal breath sounds. Abdominal: General: Abdomen is flat. Palpations: Abdomen is soft. Tenderness: There is no abdominal tenderness. There is no right CVA tenderness or left CVA tenderness. Skin: General: Skin is warm and dry. Neurological: Mental Status: She is alert. Assessment and Plan ASSESSMENT/PLAN: 1. Urinary frequency - ICD9: 788.41, ICD10: R35.0 - UA positive for mable esterase, hematuria, and proteinuria - Send urine for culture - Begin treatment with Macrobid 100 mg BID for 5 days - Patient education for prevention given - UA DIP, URINE (POC) - URINE CULTURE -Advised patient that if urine culture comes back with insignificant growth again, please follow-up with PCP for hematuria or with her urologist. She understands Diagnosis and treatment plan were discussed and questions were answered to the patient's satisfaction. Pt acknowledged understanding of concepts and follow up plan. Specific signs and symptoms that would indicate the need for higher level of care were discussed in detail warranting prompt ER evaluation. OVI Pappas [facility] 09-10-2022 History of Present illness Narrative This note was created using NoteWriter. Subjective Johnny Hobbs is a 56 year old female. HPI 56-year-old female presents for UTI symptoms. Patient states she has been having frequency, burning, blood in the urine for the past 4 to 5 days. She states that she has been drinking water and thought she may have flushed a UTI out, but last night she noticed blood in her urine. No flank pain, vomiting, fevers. She does have a little bit of back pain. She has had UTIs in the past. In May she had a urine culture which did not reveal any bacterial growth. She denies any history of abnormal kidney function. She has seen a specialist in the past for UTIs. PAST MEDICAL HISTORY Diagnosis Date Acne Biliary dyskinesia 04/28/14 s/p nnamdi Carpal tunnel syndrome 11/2018 right hand Hyperlipemia 2014 [place] 1.5% 07/2018 Mood disorder (HCC) Motion sickness Personal history of malignant melanoma of skin 1994 LEFT LEG, Dermatology managed Sleep apnea non compliant with cpap PAST SURGICAL HISTORY Procedure Laterality Date EXCISION OF MALIGNANT LESION GREATER THAN 1.25 CM 05/22/1994 MELANOMA LEFT LEG LAPAROSCOPY SURG CHOLECYSTECTOMY 04/28/2014 PAST SURGICAL HISTORY OF right CTR PAST SURGICAL HISTORY OF wisdom teeth TONSILLECTOMY PRIMARY/SECONDARY <AGE 14 Tonsillectomy ALLERGIES Adhesive Tape (Rosins), Bactrim [Sulfamethoxazole-Trimethoprim], Monosodium Glutamate (Msg), Nickel, and Shellfish Containing Products MEDICATIONS omeprazole (PRILOSEC) 20 mg capsule TAKE 1 CAPSULE DAILY pravastatin (PRAVACHOL) 20 mg tablet Take 1 tablet by mouth once daily. estradiol (ESTRACE) 0.01 % (0.1 mg/gram) vaginal cream Use 1 g vaginally two times a week. multivit,thx,calcium,iron,mins (MULTIVITAMIN AND MINERAL ORAL) Take by mouth. cholecalciferol (VITAMIN D3) 1,000 unit tab tablet Take 1,000 Units by mouth once daily. buPROPion XL (WELLBUTRIN XL) 300 mg 24 hr tablet Take 1 tablet by mouth once daily. multivitamins w-minerals(DAILY MULTIVITAMIN-MINERALS TAB) Take one(1) tablet daily. nitrofurantoin monohydrate and macrocrystal (MACROBID) 100 mg capsule Take 1 capsule by mouth twice daily for 5 days. FAMILY HISTORY Problem Relation Age of Onset Hypertension Mother Coronary Artery Disease Father Coronary Artery Disease Maternal Grandmother other (lung cancer) Brother 44 smoker Social History Tobacco Use Smoking status: Never Smokeless tobacco: Never Vaping Use Vaping Use: Never used Substance Use Topics Alcohol use: No Drug use: No Review of Systems Constitutional: Negative for chills and fever. HENT: Negative for congestion, ear pain and sore throat. Respiratory: Negative for cough and shortness of breath. Cardiovascular: Negative for chest pain. Gastrointestinal: Negative for diarrhea and vomiting. Genitourinary: Positive for dysuria, frequency and hematuria. Negative for pelvic pain. Objective BP 118/78 Pulse 76 Temp 36.1 C (97 F) Resp 21 Wt 82.1 kg (181 lb) LMP 12/31/2013 SpO2 98% BMI 32.06 kg/m Physical Exam Vitals and nursing note reviewed. Constitutional: General: She is not in acute distress. Appearance: Normal appearance. She is not toxic-appearing. HENT: Nose: Nose normal. Mouth/Throat: Mouth: Mucous membranes are moist. Eyes: Conjunctiva/sclera: Conjunctivae normal. Cardiovascular: Rate and Rhythm: Normal rate and regular rhythm. Pulmonary: Effort: Pulmonary effort is normal. Breath sounds: Normal breath sounds. Abdominal: General: Abdomen is flat. Palpations: Abdomen is soft. Tenderness: There is no abdominal tenderness. There is no right CVA tenderness or left CVA tenderness. Skin: General: Skin is warm and dry. Neurological: Mental Status: She is alert. Assessment and Plan ASSESSMENT/PLAN: 1. Urinary frequency - ICD9: 788.41, ICD10: R35.0 - UA positive for mable esterase, hematuria, and proteinuria - Send urine for culture - Begin treatment with Macrobid 100 mg BID for 5 days - Patient education for prevention given - UA DIP, URINE (POC) - URINE CULTURE -Advised patient that if urine culture comes back with insignificant growth again, please follow-up with PCP for hematuria or with her urologist. She understands Diagnosis and treatment plan were discussed and questions were answered to the patient's satisfaction. Pt acknowledged understanding of concepts and follow up plan. Specific signs and symptoms that would indicate the need for higher level of care were discussed in detail warranting prompt ER evaluation. OVI Pappas documented in this encounter [facility] 07-21-2022 Miscellaneous Notes Noted. Agree with ER assessment. Thank you, Mercedes Mitchell APRN.MANAGER AUDIT Protocol recommends ER now or pcp triage. Patient agreeable to ER. Patient sounds very weak, tired, and is not drinking enough fluids. Reason for Disposition [1] Drinking very little AND [2] dehydration suspected (e.g., no urine > 12 hours, very dry mouth, very lightheaded) Answer Assessment - Initial Assessment Questions 1. DIARRHEA SEVERITY: Severe. 12 in last 24 hours. Had more day before. Vomiting stopped in last 24 hours. 1st 24 hours vomited every hour. 2. ONSET: Diarrhea 2 days but has lessoned. 3. BM CONSISTENCY: Pure liquid. 4. VOMITING: Not vomiting today, but has been vomiting every hour for 2 days. 5. ABDOMINAL PAIN: Once in a while. Mostly aches and pains in back. 6. ABDOMINAL PAIN SEVERITY: Mild in abdomen, moderate in back 7. ORAL INTAKE: 1.5 bottles of water. 1 full cup sprite/ice - able to keep it down. Is not getting enough fluids in. 8. HYDRATION: Dry mouth/lips, weakness, dizziness, probably lost weight, last urinated 2 hours ago-doesn't know what color b/c it is always mixed with stool. 9. EXPOSURE: Son tested negative for flu/covid/strep in last Monday, but he had the same symptoms. No spoiled food. 10. ANTIBIOTIC USE: No 11. OTHER SYMPTOMS: Diarrhea, fever, nausea, aches, RINCON, tired, sleepy, weak, dizzy. 12. : No. Protocols used: [id number] documented in this encounter [facility] 07-20-2022 Miscellaneous Notes Agree with below Gurdeep Pascual DO Patient calling she said she is vomiting, dry heaving and uncontrollable diarrhea for the past 24 hours. She can not even keep a sip of water down. She said her rectum is raw from all the watery diarrhea. Patient said she has fever, but has no thermometer. Advised patient to go to ER for evaluation, needs IV fluids. Patient said she would go to [facility] ER. documented in this encounter [facility] 07-08-2022 Miscellaneous Notes Patient phones requesting refills as follows: Requested Prescriptions Pending Prescriptions Disp Refills omeprazole (PRILOSEC) 20 mg capsule [Pharmacy Med Name: OMEPRAZOLE DR CAPS 20MG] 90 capsule 3 Sig: TAKE 1 CAPSULE DAILY BRUCE-12/16/21 Labs-06/09/22 NOV-none med filled 07/12/21 Please review and advise. Viri Mary LPN documented in this encounter [facility] 06-15-2022 Note Patient Outreach (IN [facility]) JOHNNY HOBBS ([id number]) 1965 F Date Time Provider Department 06/15/22 GURDEEP PASCUAL During your visit today, we recorded the following information about you: Allergies As of Date: 06/15/2022 Noted Allergy Reaction ADHESIVE TAPE (ROSINS) 08/15/2005 2 - Rash BACTRIM (SULFAMETHOXAZOLE-TRIMETH* 023 8 - GI Upset 14 - Other: See Comments Comments: dizziness MONOSODIUM GLUTAMATE (MSG) 12/27/2019 6 - Diarrhea 8 - GI Upset 5 - Intolerance NICKEL 12/27/2019 9 - Itching 2 - Rash SHELLFISH CONTAINING PRODUCTS 12/27/2019 8 - GI Upset 5 - Intolerance Date Reviewed: 01/04/2022 Reviewed by: Anabella Ortiz MA - Fully Assessed Visit Diagnosis:Encounter for screening mammogram for breast cancer [Z12.31] Order(s):[facility] [[id number]] Order #: [id number] FUTURE Prescriptions as of 06/20/2022 - pravastatin (PRAVACHOL) 20 mg tablet Take 1 tablet by mouth once daily. - estradiol (ESTRACE) 0.01 % (0.1 mg/gram) vaginal cream Use 1 g vaginally two times a week. - omeprazole (PRILOSEC) 20 mg capsule Take 1 capsule by mouth once daily. - multivit,thx,calcium,iron,mins (MULTIVITAMIN AND MINERAL ORAL) Take by mouth. - cholecalciferol (VITAMIN D3) 1,000 unit tab tablet Take 1,000 Units by mouth once daily. - buPROPion XL (WELLBUTRIN XL) 300 mg 24 hr tablet Take 1 tablet by mouth once daily. - multivitamins w-minerals(DAILY MULTIVITAMIN-MINERALS TAB) Take one(1) tablet daily. 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] 08/09/2016 Obesity (BMI 30.0-34.9) [E66.9] 08/09/2016 Hyperlipidemia, mixed [E78.2] 08/09/2016 Snapping right knee [M23.8X1] 08/14/2017 Gastroesophageal reflux disease without esophag*08/14/2017 Chronic depression [F32.A] 02/13/2018 Recurrent UTI (urinary tract infection) [N39.0] 02/13/2018 Carpal tunnel syndrome of left wrist [G56.02] 11/25/2019 Well adult exam [Z00.00] 10/29/2021 Vitamin D deficiency [E55.9] 10/29/2021 Encounter Status:Closed by FILIPE GOLDEN on 06/20/22 [facility] 06-10-2022 Miscellaneous Notes Pt informed rx sent to pharmacy Gracia Gardiner Ma The following approved medication requests have been transmitted electronically. Requested Prescriptions Signed Prescriptions Disp Refills cephALEXin (KEFLEX) 500 mg capsule 21 capsule 0 Sig: Take 1 capsule by mouth three times daily for 7 days. Authorizing Provider: GURDEEP PASCUAL DO Pt informed, verbalized understanding. Pt reports lower back aches and having frequency. Please send antibiotic to [facility] in [place]. Gracia Gardiner Ma Please inform patient that her UA is showing blood, protein and white blood cells. If she is symptomatic of UTI symptoms, then recommend starting Keflex or ciprofloxacin antibiotic, awaiting urine culture right now Gurdeep Pascual DO Pt called in asking if provider would look at the results of her UA. She states she is taking AZO and it is helping, she doesn't see blood in her urine anymore. Please call and advise. documented in this encounter [facility] 03-14-2022 Miscellaneous Notes Pt informed, verbalized understanding Gracia Gardiner Ma With urine culture negative. OK to discontinue this regimen. Let us know if symptoms return. Thank you, Mercedes Cooper APRN.CAROL Images from the original note were not included. Please see mychart message documented in this encounter [facility] 03-14-2022 Miscellaneous Notes See TE 03/14 Gracia Gardiner Ma documented in this encounter [facility] 03-10-2022 Miscellaneous Notes Patient returned call and went over results, notes from Dr Pascual with understanding. Aware rx to pharmacy. documented in this encounter [facility] 03-10-2022 Miscellaneous Notes Pt wrote into the office asking about her urine results. She was notified of message below from Provider. Pt made aware that Urine Cx is still in process. Anum Norris Ma Called and left a voicemail for the Patient to call back and ask for a nurse to receive the providers message. Zina Granger RN Please inform patient that her urinalysis shows concerns for UTI with blood, protein and bacteria present. We are waiting on culture but she can get started on antibiotic as ordered Gurdeep Pascual DO The following approved medication requests have been transmitted electronically. Requested Prescriptions Signed Prescriptions Disp Refills sulfamethoxazole-trimethoprim (BACTRIM DS) 800-160 mg per tablet 10 tablet 0 Sig: Take 1 tablet by mouth twice daily for 5 days. Authorizing Provider: GURDEEP PASCUAL DO documented in this encounter [facility] 02-11-2022 Miscellaneous Notes The following approved medication requests have been transmitted electronically. Requested Prescriptions Signed Prescriptions Disp Refills pravastatin (PRAVACHOL) 20 mg tablet 90 tablet 3 Sig: Take 1 tablet by mouth once daily. Authorizing Provider: MERCEDES COOPER Ordering User: LUPIS MONTANA APRN.MANAGER AUDIT Patient phones requesting refills as follows: Requested Prescriptions Pending Prescriptions Disp Refills pravastatin (PRAVACHOL) 20 mg tablet 90 tablet 1 Sig: Take 1 tablet by mouth once daily. BRUCE-12/16/21 Labs-01/01/22 NOV-none med filled 11/18/21 Please review and advise. Viri Mary LPN documented in this encounter [facility] 01-04-2022 Note HNO ID: [id number] Author: Barbara Erwin APRN.CAROL Service: ? Author Type: Nurse Practitioner Type: Progress Notes Filed: 01/04/2022 12:01 PM Note Text: NEW PATIENT OFFICE VISIT HISTORY OF PRESENT ILLNESS Johnny Hobbs is a 56 year old female who presents today as a new patient for bilateral flank pain and recurrent UTI for the last 6 months . Patient reports 3 UTIs within the last 6 months and now she is having flank pain She underwent recent renal ultrasound negative with exception to right renal cyst. But she is still c/o of moderate right side and back pain. Nothing makes worse or better. No fever or chills. No gross hematuria today. Only with UTI. She did have 1 stone she passed when 22 years UUI: no KANE: no Nocturia: 1 time per night. Prior h/o hysterectomy: none Vaginal births: 2 No issues with intercourse. Previous treatment she's tried: drinking more water 60 ounces daily, cranberry capsules but she hasn't started them yet. Discussed starting estrace, probiotics and vitamin C Get CT flank Follow up 3 months. LAB RESULTS Creatinine Date Value Ref Range Status 12/16/2021 0.71 0.58 - 0.96 mg/dL Final No results found for: PSA Color (no units) Date Value 12/14/2021 Yellow Clarity (no units) Date Value 12/14/2021 Clear Glucose, Urine (no units) Date Value 12/14/2021 Negative Bilirubin, Urine (no units) Date Value 12/14/2021 Negative Ketones, Urine (no units) Date Value 12/14/2021 Negative Specific [place], Ur (no units) Date Value 12/14/2021 1.016 Hemoglobin/Blood,Ur (no units) Date Value 12/14/2021 Negative pH, Urine (no units) Date Value 12/14/2021 6.0 Protein, Urine (no units) Date Value 12/14/2021 Negative Urobilinogen (no units) Date Value 12/14/2021 Negative Nitrites (no units) Date Value 12/14/2021 Negative Leuk Esterase (no units) Date Value 12/14/2021 Negative MEDICATIONS: pravastatin (PRAVACHOL) 20 mg tablet Take 1 tablet by mouth once daily. omeprazole (PRILOSEC) 20 mg capsule Take 1 capsule by mouth once daily. multivit,thx,calcium,iron,mins (MULTIVITAMIN AND MINERAL ORAL) Take by mouth. cholecalciferol (VITAMIN D3) 1,000 unit tab tablet Take 1,000 Units by mouth once daily. buPROPion XL (WELLBUTRIN XL) 300 mg 24 hr tablet Take 1 tablet by mouth once daily. multivitamins w-minerals(DAILY MULTIVITAMIN-MINERALS TAB) Take one(1) tablet daily. REVIEW OF SYSTEMS CONSTITUTIONAL: Patient reports no recent fever or weight loss CARDIOVASCULAR: No chest pain, palpitations or ankle edema. RESPIRATORY: No wheezing, frequent cough or shortness of breath GENITOURINARY: See HPI HISTORIES PAST MEDICAL HISTORY Diagnosis Date Acne Biliary dyskinesia 04/28/14 s/p nnamdi Carpal tunnel syndrome 11/2018 right hand Hyperlipemia 2014 [place] 1.5% 07/2018 Mood disorder (HCC) Motion sickness Personal history of malignant melanoma of skin 1994 LEFT LEG, Dermatology managed Sleep apnea non compliant with cpap FAMILY HISTORY Problem Relation Age of Onset Hypertension Mother Coronary Artery Disease Father Coronary Artery Disease Maternal Grandmother other (lung cancer) Brother 44 smoker PAST SURGICAL HISTORY Procedure Laterality Date EXCISION OF MALIGNANT LESION GREATER THAN 1.25 CM 05/22/1994 MELANOMA LEFT LEG LAPAROSCOPY SURG CHOLECYSTECTOMY 04/28/2014 PAST SURGICAL HISTORY OF right CTR PAST SURGICAL HISTORY OF wisdom teeth TONSILLECTOMY PRIMARY/SECONDARY Tonsillectomy SOCIAL HISTORY Social History Tobacco Use Smoking status: Never Smokeless tobacco: Never Vaping Use Vaping Use: Never used Substance Use Topics Alcohol use: No Drug use: No PHYSICAL EXAMINATION General appearance: Well appearing, alert, in no acute distress, well-hydrated, well nourished.. BACK: positive findings: mild RCVAT. MUSCULOSKELETAL: Negative for joint pain or swelling. RESPIRATORY: Normal respiratory effort. SKIN: Normal color, no rash, no lesions. ASSESSMENT/PLAN: 1. Right flank pain - ICD9: 789.09, ICD10: R10.9 (primary diagnosis) - CT FLANK WO IVCON - follow up pending results 3. Recurrent UTI (urinary tract infection) - ICD9: 599.0, ICD10: N39.0 - estrace - vitamin C, cranberry probiotics - follow up 3 months Barbara Erwin APRN.[facility] 01-04-2022 History of Present illness Narrative NEW PATIENT OFFICE VISIT HISTORY OF PRESENT ILLNESS Johnny Hobbs is a 56 year old female who presents today as a new patient for bilateral flank pain and recurrent UTI for the last 6 months . Patient reports 3 UTIs within the last 6 months and now she is having flank pain She underwent recent renal ultrasound negative with exception to right renal cyst. But she is still c/o of moderate right side and back pain. Nothing makes worse or better. No fever or chills. No gross hematuria today. Only with UTI. She did have 1 stone she passed when 22 years UUI: no KANE: no Nocturia: 1 time per night. Prior h/o hysterectomy: none Vaginal births: 2 No issues with intercourse. Previous treatment she's tried: drinking more water 60 ounces daily, cranberry capsules but she hasn't started them yet. Discussed starting estrace, probiotics and vitamin C Get CT flank Follow up 3 months. LAB RESULTS Creatinine Date Value Ref Range Status 12/16/2021 0.71 0.58 - 0.96 mg/dL Final No results found for: PSA Color (no units) Date Value 12/14/2021 Yellow Clarity (no units) Date Value 12/14/2021 Clear Glucose, Urine (no units) Date Value 12/14/2021 Negative Bilirubin, Urine (no units) Date Value 12/14/2021 Negative Ketones, Urine (no units) Date Value 12/14/2021 Negative Specific [place], Ur (no units) Date Value 12/14/2021 1.016 Hemoglobin/Blood,Ur (no units) Date Value 12/14/2021 Negative pH, Urine (no units) Date Value 12/14/2021 6.0 Protein, Urine (no units) Date Value 12/14/2021 Negative Urobilinogen (no units) Date Value 12/14/2021 Negative Nitrites (no units) Date Value 12/14/2021 Negative Leuk Esterase (no units) Date Value 12/14/2021 Negative MEDICATIONS: pravastatin (PRAVACHOL) 20 mg tablet Take 1 tablet by mouth once daily. omeprazole (PRILOSEC) 20 mg capsule Take 1 capsule by mouth once daily. multivit,thx,calcium,iron,mins (MULTIVITAMIN AND MINERAL ORAL) Take by mouth. cholecalciferol (VITAMIN D3) 1,000 unit tab tablet Take 1,000 Units by mouth once daily. buPROPion XL (WELLBUTRIN XL) 300 mg 24 hr tablet Take 1 tablet by mouth once daily. multivitamins w-minerals(DAILY MULTIVITAMIN-MINERALS TAB) Take one(1) tablet daily. REVIEW OF SYSTEMS CONSTITUTIONAL: Patient reports no recent fever or weight loss CARDIOVASCULAR: No chest pain, palpitations or ankle edema. RESPIRATORY: No wheezing, frequent cough or shortness of breath GENITOURINARY: See HPI HISTORIES PAST MEDICAL HISTORY Diagnosis Date Acne Biliary dyskinesia 04/28/14 s/p nnamdi Carpal tunnel syndrome 11/2018 right hand Hyperlipemia 2014 [place] 1.5% 07/2018 Mood disorder (HCC) Motion sickness Personal history of malignant melanoma of skin 1994 LEFT LEG, Dermatology managed Sleep apnea non compliant with cpap FAMILY HISTORY Problem Relation Age of Onset Hypertension Mother Coronary Artery Disease Father Coronary Artery Disease Maternal Grandmother other (lung cancer) Brother 44 smoker PAST SURGICAL HISTORY Procedure Laterality Date EXCISION OF MALIGNANT LESION GREATER THAN 1.25 CM 05/22/1994 MELANOMA LEFT LEG LAPAROSCOPY SURG CHOLECYSTECTOMY 04/28/2014 PAST SURGICAL HISTORY OF right CTR PAST SURGICAL HISTORY OF wisdom teeth TONSILLECTOMY PRIMARY/SECONDARY <AGE 14 Tonsillectomy SOCIAL HISTORY Social History Tobacco Use Smoking status: Never Smokeless tobacco: Never Vaping Use Vaping Use: Never used Substance Use Topics Alcohol use: No Drug use: No PHYSICAL EXAMINATION General appearance: Well appearing, alert, in no acute distress, well-hydrated, well nourished.. BACK: positive findings: mild RCVAT. MUSCULOSKELETAL: Negative for joint pain or swelling. RESPIRATORY: Normal respiratory effort. SKIN: Normal color, no rash, no lesions. ASSESSMENT/PLAN: 1. Right flank pain - ICD9: 789.09, ICD10: R10.9 (primary diagnosis) - CT FLANK WO IVCON - follow up pending results 3. Recurrent UTI (urinary tract infection) - ICD9: 599.0, ICD10: N39.0 - estrace - vitamin C, cranberry probiotics - follow up 3 months Barbara Erwin APRN.CAROL documented in this encounter [facility] 12-17-2021 Miscellaneous Notes Patient notified of results, verbalizes understanding of instructions. Viri Mary LPN Can you please call the patient and let her know that I reviewed her lab and ultrasound results. Labs were all relatively normal except liver enzymes were slightly elevated. This is unchanged from her previous lab results. No signs of infection. Ultrasound did not show kidney stone but a simple cyst in the right kidney. These are usually benign and we can monitor them. If these become bothersome or the pain does not improve I would recommend following up with urology. Please let me know if the patient has any questions. Thank you. Orquidea Magana APRN.MANAGER AUDIT documented in this encounter [facility] 12-08-2021 Miscellaneous Notes Pt caregiver called and she was given the information listed below. Pt did start on the ATB. Ana Maria Deras LPN Left message for patient to return call to office Marivel Mitchell Cma Yes, urine culture and UA are positive for UTI. Please start antibiotic on hand and let us know if no improvement in symptoms. Thank you, Mercedes Cooper APRN.CAROL Patient calls to ask if antibiotic that she has on hand should be started based on recent UA and culture results. Patient has cephalexin 500 mg on hand. Please review and advise, Beth Dodson RN documented in this encounter [facility] 11-18-2021 Miscellaneous Notes Spoke with pt and information listed below given. Pt verbalizes understanding. Ana Maria Deras LPN Please let patient know that I have placed a lipid panel to have done at her convenience d/t last one in 2019 to evaluate progress of this medication use. The following approved medication requests have been transmitted electronically. Signed Prescriptions Disp Refills pravastatin (PRAVACHOL) 20 mg tablet 90 tablet 1 Sig: Take 1 tablet by mouth once daily. JAMES: No Authorizing Provider: MERCEDES COOPER APRN.CNP Pharmacy [place] in [place] [facility] Patient has been identified by name and date of : Yes Patient aware RX will be sent to pharmacy. No need to notify patient. Patient phones for refill(s): Pending Prescriptions Disp Refills PRAVASTATIN 20 MG TABLET 90 tablet 1 Sig: Take 1 tablet by mouth once daily. JAMES: No Date of last office visit : 10/29/2021 Labs-07/19/21 Date of next office visit : Visit date not found Last 2 Encounter Wt Readings: Date: Wt: 10/29/2021 81.6 kg (180 lb) 10/22/2021 82.5 kg (181 lb 12.8 oz) Please advise. Willow Rob Pss documented in this encounter [facility] 11-03-2021 Miscellaneous Notes This was addressed at appointment. Mercedes Cooper APRN.MANAGER AUDIT Do you want any labs done prior to appt? documented in this encounter [facility] 11-02-2021 History of Present illness Narrative Images from the original note were not included. Johnny Hobbs is a 55 year old female who presents today for Patient presents with: Skin Check: Yearly skin exam Current Treatment: Yearly skin exams Past Treatment: Excision History of nonmelanoma skin cancer: No History of Melanoma: Left leg 1994 Family history of skin cancer: Father Dermatology History: Specialty Problems Melanoma: Left leg 1994 Allergies: Adhesive Tape (Rosins), Monosodium Glutamate (Msg), Nickel, and Shellfish Containing Products Past Medical History: PAST MEDICAL HISTORY Diagnosis Date Acne Biliary dyskinesia 04/28/14 s/p nnamdi Carpal tunnel syndrome 11/2018 right hand Hyperlipemia 2014 [place] 1.5% 07/2018 Mood disorder (HCC) Motion sickness Personal history of malignant melanoma of skin 1994 LEFT LEG, Dermatology managed Sleep apnea non compliant with cpap MEDS: Current Outpatient Medications on File Prior to Visit Medication Sig omeprazole (PRILOSEC) 20 mg capsule Take 1 capsule by mouth once daily. pravastatin (PRAVACHOL) 20 mg tablet Take 1 tablet by mouth once daily. multivit,thx,calcium,iron,mins (MULTIVITAMIN AND MINERAL ORAL) Take by mouth. cholecalciferol (VITAMIN D) 1,000 unit tab tablet Take 1,000 Units by mouth once daily. buPROPion XL (WELLBUTRIN XL) 300 mg 24 hr tablet Take 1 tablet by mouth once daily. multivitamins w-minerals(DAILY MULTIVITAMIN-MINERALS TAB) Take one(1) tablet daily. tamsulosin (FLOMAX) 0.4 mg Take 1 capsule by mouth daily at bedtime. (Patient not taking: Reported on 10/22/2021 ) Sulfacetamide Sodium-Sulfur 10-5 % (w/w) clsr Wash face once or twice daily CYMBALTA 60 mg capsule Take 2 capsules by mouth once daily. No current facility-administered medications on file prior to visit. Review of systems No Has pacemaker / defibrillator No Takes aspirin / anticoagulant daily No Has valve disorders No Other problems elsewhere on skin No Jazzmine Jensen RN The above was entered by the nursing staff. I have reviewed the documentation and I concur. Kim Ortiz MD HPI: Chief Complaint Yearly skin exam Location Full body skin exam Duration years Timing constant Severity mild Quality H/O MM 1994 Modifying Factors: Moles to monitor. Unaware of any changing at present. Denies any bleeding moles at present. Physical Exam - Area(s) Examined: The pt is alert and oriented, in NAD. Skin examination of head/scalp, face, neck, chest, back, abdomen, bilateral upper, lower extremities, groin/buttocks, hands, feet, digits, and nails. was significant for: Items identified on Diagram above Assessment / Plan: (Z85.820) H/O malignant melanoma of skin (primary encounter diagnosis) Comment: no evidence of recurrence today Plan: Skin checks every 1 year. Monitor for growth and changes. Sun precautions (D22.60, D22.5, D22.70) Multiple benign melanocytic nevi of upper and lower extremities and trunk Comment: reassured Plan: continue to monitor By signing my name below, I, Jazzmine Jensen RN, attest that this documentation has been prepared under the direction and in the presence of Kim Ortiz MD. Electronically Signed: Jazzmine Jensen RN, Scribe. November 02, 2021 10:48 AM. I, Kim Ortiz MD, personally performed the services described in this documentation. All medical record entries made by the scribe were at my direction and in my presence. I have reviewed the chart and discharge instructions (if applicable) and agree that the record reflects my personal performance and is accurate and complete. Electronically Signed: Kim Ortiz MD November 02, 2021 10:48 AM. Dariela Torres APRN.MANAGER AUDIT (training) documented in this encounter [facility] 10-29-2021 History of Present illness Narrative CC: Johnny Hobbs is a 55 year old female who presents to the office for physical HPI: Overall doing well HPL, taking pravastatin, tolerating okay with SE Mood, feels overall doing well on medications she is taking, desvenlafaxine seems to be helping symptoms. Not interested in colonoscopy at this time Is going to be scheduling appt for PAP with [facility] PAST MEDICAL HISTORY Diagnosis Date Acne Biliary dyskinesia 04/28/14 s/p nnamdi Carpal tunnel syndrome 11/2018 right hand Hyperlipemia 2014 [place] 1.5% 07/2018 Mood disorder (HCC) Motion sickness Personal history of malignant melanoma of skin 1994 LEFT LEG, Dermatology managed Sleep apnea non compliant with cpap PAST SURGICAL HISTORY Procedure Laterality Date EXCISION OF MALIGNANT LESION GREATER THAN 1.25 CM 05/22/1994 MELANOMA LEFT LEG LAPAROSCOPY SURG CHOLECYSTECTOMY 04/28/2014 PAST SURGICAL HISTORY OF right CTR PAST SURGICAL HISTORY OF wisdom teeth TONSILLECTOMY PRIMARY/SECONDARY <AGE 12 Tonsillectomy Social History: Social History Tobacco Use Smoking status: Never Smoker Smokeless tobacco: Never Used Vaping Use Vaping Use: Never used Substance Use Topics Alcohol use: No Drug use: No FAMILY HISTORY Problem Relation Age of Onset Hypertension Mother Coronary Artery Disease Father Coronary Artery Disease Maternal Grandmother other (lung cancer) Brother 44 smoker Current Outpatient prescriptions: rOPINIRole (REQUIP) 1 mg tablet TAKE 1 TABLET DAILY AT BEDTIME omeprazole (PRILOSEC) 20 mg capsule Take 1 capsule by mouth once daily. pravastatin (PRAVACHOL) 20 mg tablet Take 1 tablet by mouth once daily. multivit,thx,calcium,iron,mins (MULTIVITAMIN AND MINERAL ORAL) Take by mouth. Sulfacetamide Sodium-Sulfur 10-5 % (w/w) clsr Wash face once or twice daily cholecalciferol (VITAMIN D) 1,000 unit tab tablet Take 1,000 Units by mouth once daily. buPROPion XL (WELLBUTRIN XL) 300 mg 24 hr tablet Take 1 tablet by mouth once daily. multivitamins w-minerals(DAILY MULTIVITAMIN-MINERALS TAB) Take one(1) tablet daily. cephALEXin (KEFLEX) 500 mg capsule Take 1 capsule by mouth three times daily for 7 days. tamsulosin (FLOMAX) 0.4 mg Take 1 capsule by mouth daily at bedtime. CYMBALTA 60 mg capsule Take 2 capsules by mouth once daily. Allergies: ALLERGIES Allergen Reactions Adhesive Tape (Cass* Rash Monosodium Glutamat* Diarrhea, GI Upset, Intolerance Nickel Itching, Rash Shellfish Containin* GI Upset, Intolerance ROS: See HPI PE: 10/29/21 1250 BP: 100/70 Pulse: 64 Resp: 16 Temp: 36.1 C (97 F) TempSrc: Right Tympanic Weight: 81.6 kg (180 lb) Height: 158 cm (5' 2.21 ) Gen: A&O, NAD, non-toxic appearing, Pleasant, cooperative HEENT: NT/AC, PERRLA, EOMs intact b/l, nares clear and patent b/l, pharynx without erythema, exudate or lesions. Uvula midline. EACs without erythema or debris. TMs pearly vieira with intact landmarks b/l. Neck: supple, No cervical LAD, no thyromegaly, no carotid bruits CV: RRR, normal S1 and S2, no murmurs, no gallops, no rubs, Pulses 2+ and symmetric in UE and LE b/l Lungs: normal respiratory effort, CTA b/l, no wheezing or rhonchi or rales Abd: soft, NT, ND, +BS, no hepatosplenomegaly MS: FROM all 4 extremities Neuro: CN II-XII intact b/l, strength 5/5 b/l UE and LE, DTRs 2/4 UE and LE, sensation intact. Skin: warm, dry, intact, No rashes or lesions on exposed skin. Scattered nevi ASSESSMENT/PLAN: 1. Well adult exam - ICD9: V70.0, ICD10: Z00.00 (primary diagnosis) - Counseled on healthy diet and regular exercise - Calcium intake with supplements or by diet of 1000 mg/day for under 50, 7749-5934 mg/day for 50+ - Discussed need and benefit for weight loss. BMI 32.71 kg/(m^2) 2. Vitamin D deficiency - ICD9: 268.9, ICD10: E55.9 - continue supplement 3. Hyperlipidemia, mixed - ICD9: 272.2, ICD10: E78.2 - suboptimal control - Continue current medication. - Encouraged following a low fat, low cholesterol diet. - Discussed the benefits of regular aerobic exercise and weight loss. 4. Chronic depression - ICD9: 311, ICD10: F32.A - stable, continue same medications She isn't interested in c scope at this time Gurdeep Pascual DO To ER if develops chest pain, shortness of breath, or severe worsening of symptoms. Discussed risks, benefits, alternatives, and potential side effects of medications. Patient expressed understanding and agreed with the plan. Gurdeep Pascual DO [address] [place] [address] documented in this encounter [facility] 10-29-2021 Instructions Gurdeep Pascual DO - 10/29/2021 1:[address]Summer Carlos Dodd documented in this encounter [facility] 10-22-2021 History of Present illness Narrative Images from the original note were not included. Subjective HPI HPI Johnny Hobbs is a 55 year old female who presents today for CC of insect sting of right middle finger. This started 2 days ago. Has tried nothing for relief. Symptoms are worsened by nothing. Denies numbness/tingling of finger. .Patient presents with: Trauma: wasp sting R hand middle figer x2 days PAST MEDICAL HISTORY Diagnosis Date Acne Biliary dyskinesia 04/28/14 s/p nnamdi Carpal tunnel syndrome 11/2018 right hand Hyperlipemia 2014 [place] 1.5% 07/2018 Mood disorder (HCC) Motion sickness Personal history of malignant melanoma of skin 1994 LEFT LEG, Dermatology managed Sleep apnea non compliant with cpap PAST SURGICAL HISTORY Procedure Laterality Date EXCISION OF MALIGNANT LESION GREATER THAN 1.25 CM 05/22/1994 MELANOMA LEFT LEG LAPAROSCOPY SURG CHOLECYSTECTOMY 04/28/2014 PAST SURGICAL HISTORY OF right CTR PAST SURGICAL HISTORY OF wisdom teeth TONSILLECTOMY PRIMARY/SECONDARY <AGE 14 Tonsillectomy ALLERGIES Adhesive Tape (Rosins), Monosodium Glutamate (Msg), Nickel, and Shellfish Containing Products MEDICATIONS omeprazole (PRILOSEC) 20 mg capsule Take 1 capsule by mouth once daily. pravastatin (PRAVACHOL) 20 mg tablet Take 1 tablet by mouth once daily. multivit,thx,calcium,iron,mins (MULTIVITAMIN AND MINERAL ORAL) Take by mouth. Sulfacetamide Sodium-Sulfur 10-5 % (w/w) clsr Wash face once or twice daily cholecalciferol (VITAMIN D) 1,000 unit tab tablet Take 1,000 Units by mouth once daily. buPROPion XL (WELLBUTRIN XL) 300 mg 24 hr tablet Take 1 tablet by mouth once daily. multivitamins w-minerals(DAILY MULTIVITAMIN-MINERALS TAB) Take one(1) tablet daily. cephALEXin (KEFLEX) 500 mg capsule Take 1 capsule by mouth three times daily for 7 days. rOPINIRole (REQUIP) 1 mg tablet TAKE 1 TABLET DAILY AT BEDTIME tamsulosin (FLOMAX) 0.4 mg Take 1 capsule by mouth daily at bedtime. CYMBALTA 60 mg capsule Take 2 capsules by mouth once daily. FAMILY HISTORY Problem Relation Age of Onset Hypertension Mother Coronary Artery Disease Father Coronary Artery Disease Maternal Grandmother other (lung cancer) Brother 44 smoker Social History Tobacco Use Smoking status: Never Smoker Smokeless tobacco: Never Used Vaping Use Vaping Use: Never used Substance Use Topics Alcohol use: No Drug use: No ROS Objective Blood pressure 110/88, pulse 79, temperature 36.7 C (98 F), resp. rate 20, weight 82.5 kg (181 lb 12.8 oz), last menstrual period 12/31/2013, SpO2 97 %. Physical Exam Constitutional: General: She is not in acute distress. Appearance: She is not toxic-appearing or diaphoretic. HENT: Head: Normocephalic and atraumatic. Pulmonary: Effort: Pulmonary effort is normal. No accessory muscle usage or respiratory distress. Musculoskeletal: Hands: Neurological: Mental Status: She is alert and oriented to person, place, and time. ASSESSMENT/PLAN: 1. Insect bite of right middle finger, initial encounter - ICD9: 915.4, E906.4, ICD10: S60.462A, W57.XXXA Discussed likely bite inflammation/allergy today, no atb necessary today Discussed otc antihistamine, declined steroid If s/s infection occur atb provided. Follow up for changing/worsening s/s. - CEPHALEXIN 500 MG CAPSULE Agrees to plan Brayan Fuller APRN.CAROL documented in this encounter [facility] 09-20-2021 Miscellaneous Notes Patient has been identified by name and date of : Yes Pharmacy phones for refill(s): Pending Prescriptions Disp Refills ROPINIROLE 1 MG TABLET 60 tablet 5 Sig: TAKE 1 TABLET DAILY AT BEDTIME JAMES: Yes Date of last office visit in primary care: [facility] 07/09/2021 No appointment scheduled Last 2 Encounter Wt Readings: Date: Wt: 07/09/2021 79.4 kg (175 lb) 07/04/2021 79.4 kg (175 lb) Please advise. Thank you. HAYLEE Bender documented in this encounter [facility] documented as of this encounter (statuses as of 09/20/2021) [facility] History of Past illness Narrative* Problem Noted Date Resolved Date Nausea alone 06/23/2017 documented as of this encounter (statuses as of 10/22/2021) [facility] History of Past illness Narrative* Problem Noted Date Resolved Date Nausea alone 06/23/2017 documented as of this encounter (statuses as of 10/29/2021) [facility] History of Past illness Narrative* Problem Noted Date Resolved Date Nausea alone 06/23/2017 documented as of this encounter (statuses as of 11/02/2021) [facility] History of Past illness Narrative* Problem Noted Date Resolved Date Nausea alone 06/23/2017 documented as of this encounter (statuses as of 11/03/2021) [facility] History of Past illness Narrative* Problem Noted Date Resolved Date Nausea alone 06/23/2017 documented as of this encounter (statuses as of 11/18/2021) [facility] History of Past illness Narrative* Problem Noted Date Resolved Date Nausea alone 06/23/2017 documented as of this encounter (statuses as of 12/08/2021) [address] History of Past illness Narrative* Problem Noted Date Resolved Date Nausea alone 06/23/2017 documented as of this encounter (statuses as of 12/20/2021) [address]2018 History of Past illness Narrative* Problem Noted Date Resolved Date Nausea alone 06/23/2017 documented as of this encounter (statuses as of 01/04/2022) [address]2018 History of Past illness Narrative* Problem Noted Date Resolved Date Nausea alone 06/23/2017 documented as of this encounter (statuses as of 02/11/2022) [address]2018 History of Past illness Narrative* Problem Noted Date Resolved Date Nausea alone 06/23/2017 documented as of this encounter (statuses as of 03/10/2022) [address]2018 History of Past illness Narrative* Problem Noted Date Resolved Date Nausea alone 06/23/2017 documented as of this encounter (statuses as of 03/10/2022) [address]2018 History of Past illness Narrative* Problem Noted Date Resolved Date Nausea alone 06/23/2017 documented as of this encounter (statuses as of 03/14/2022) [address] History of Past illness Narrative* Problem Noted Date Resolved Date Nausea alone 06/23/2017 documented as of this encounter (statuses as of 03/14/2022) [address] History of Past illness Narrative* Problem Noted Date Resolved Date Nausea alone 06/23/2017 documented as of this encounter (statuses as of 06/10/2022) [facility] of Past illness Narrative* Problem Noted Date Resolved Date Nausea alone 06/23/2017 documented as of this encounter (statuses as of 07/08/2022) [facility] of Past illness Narrative* Problem Noted Date Resolved Date Nausea alone 06/23/2017 documented as of this encounter (statuses as of 08/04/2022) [facility] of Past illness Narrative* Problem Noted Date Resolved Date Nausea alone 06/23/2017 documented as of this encounter (statuses as of 09/10/2022) [facility] of Past illness Narrative* Problem Noted Date Resolved Date Nausea alone 06/23/2017 documented as of this encounter (statuses as of 09/15/2022) [facility] of Past illness Narrative* Problem Noted Date Resolved Date Nausea alone 06/23/2017 documented as of this encounter (statuses as of 10/27/2022) [facility] History of Past illness Narrative* Problem Noted Date Resolved Date Nausea alone 06/23/2017 documented as of this encounter (statuses as of 10/20/2022) [facility] History of Past illness Narrative* Problem Noted Date Resolved Date Nausea alone 06/23/2017 documented as of this encounter (statuses as of 10/20/2022) [facility] History of Past illness Narrative* Problem Noted Date Resolved Date Nausea alone 06/23/2017 documented as of this encounter (statuses as of 10/21/2022) [address] History of Past illness Narrative* Problem Noted Date Diagnosed Date Resolved Date Nausea alone 06/23/2017 documented as of this encounter (statuses as of 11/29/2022) [address] History of Past illness Narrative* Problem Noted Date Diagnosed Date Resolved Date Nausea alone 06/23/2017 documented as of this encounter (statuses as of 01/12/2023) [facility] History of Past illness Narrative* Problem Noted Date Diagnosed Date Resolved Date Nausea alone 06/23/2017 documented as of this encounter (statuses as of 01/19/2023) [address] History of Past illness Narrative* Problem Noted Date Diagnosed Date Resolved Date Nausea alone 06/23/2017 documented as of this encounter (statuses as of 01/20/2023) [facility] of Past illness Narrative* Problem Noted Date Diagnosed Date Resolved Date Nausea alone 06/23/2017 documented as of this encounter (statuses as of 01/25/2023) [facility] of Past illness Narrative* Problem Noted Date Diagnosed Date Resolved Date Nausea alone 06/23/2017 documented as of this encounter (statuses as of 02/02/2023) [facility] of Past illness Narrative* Problem Noted Date Diagnosed Date Resolved Date Nausea alone 06/23/2017 documented as of this encounter (statuses as of 02/06/2023) [address] History of Past illness Narrative* Problem Noted Date Diagnosed Date Resolved Date Nausea alone 06/23/2017 documented as of this encounter (statuses as of 02/22/2023) [address]2018 History of Past illness Narrative* Problem Noted Date Diagnosed Date Resolved Date Nausea alone 06/23/2017 documented as of this encounter (statuses as of 02/28/2023) [facility] of Past illness Narrative* Problem Noted Date Diagnosed Date Resolved Date Nausea alone 06/23/2017 documented as of this encounter (statuses as of 03/06/2023) [address]2018 History of Past illness Narrative* Problem Noted Date Diagnosed Date Resolved Date Nausea alone 06/23/2017 documented as of this encounter (statuses as of 03/21/2023) [address]2018 History of Past illness Narrative* Problem Noted Date Diagnosed Date Resolved Date Nausea alone 06/23/2017 documented as of this encounter (statuses as of 03/25/2023) [facility] History of Past illness Narrative* Problem Noted Date Diagnosed Date Resolved Date Nausea alone 06/23/2017 documented as of this encounter (statuses as of 03/25/2023) [address]2018 History of Past illness Narrative* Problem Noted Date Diagnosed Date Resolved Date Nausea alone 06/23/2017 documented as of this encounter (statuses as of 03/26/2023) [address]2018 History of Past illness Narrative* Problem Noted Date Diagnosed Date Resolved Date Nausea alone 06/23/2017 documented as of this encounter (statuses as of 04/14/2023) [facility] of Past illness Narrative* Problem Noted Date Diagnosed Date Resolved Date Nausea alone 06/23/2017 documented as of this encounter (statuses as of 04/15/2023) [facility] Past illness Narrative* Problem Noted Date Diagnosed Date Resolved Date Nausea alone 06/23/2017 documented as of this encounter (statuses as of 04/18/2023) [facility] Past illness Narrative* Problem Noted Date Diagnosed Date Resolved Date Nausea alone 06/23/2017 documented as of this encounter (statuses as of 04/20/2023) [facility] of Past illness Narrative* Problem Noted Date Diagnosed Date Resolved Date Nausea alone 06/23/2017 documented as of this encounter (statuses as of 04/21/2023) [facility] History of Past illness Narrative* Problem Noted Date Diagnosed Date Resolved Date Nausea alone 06/23/2017 documented as of this encounter (statuses as of 04/28/2023) [address] History of Past illness Narrative* Problem Noted Date Diagnosed Date Resolved Date Nausea alone 06/23/2017 documented as of this encounter (statuses as of 05/29/2023) [facility] Restless leg Restless legs syndrome (RLS) [facility] Diagnosis Insect bite of right middle finger, initial encounter- Primary [facility] Diagnosis Well adult exam- Primary Routine general medical examination at a health care facility Vitamin D deficiency Unspecified vitamin D deficiency Hyperlipidemia, mixed Mixed hyperlipidemia Chronic depression Depressive disorder, not elsewhere classified [facility] Diagnosis H/O malignant melanoma of skin- Primary Personal history of malignant melanoma of skin Multiple benign melanocytic nevi of upper and lower extremities and trunk [facility] Hyperlipidemia, mixed- Primary Mixed hyperlipidemia [facility] Diagnosis Right flank pain- Primary Abdominal pain, unspecified site Bilateral flank pain Abdominal pain, unspecified site Recurrent UTI (urinary tract infection) Urinary tract infection, site not specified [facility] Diagnosis Hyperlipidemia, mixed Mixed hyperlipidemia [facility] Diagnosis Urinary frequency- Primary [facility] Diagnosis Recurrent UTI- Primary Urinary tract infection, site not specified [facility] Diagnosis Urinary frequency- Primary Bilirubinemia Jaundice, unspecified, not of [facility] Diagnosis Recurrent UTI- Primary Urinary tract infection, site not specified Gross hematuria [facility] Diagnosis Closed fracture of proximal end of left humerus, unspecified fracture morphology, initial encounter- Primary [facility] Diagnosis Closed nondisplaced fracture of greater tuberosity of left humerus with routine healing, subsequent encounter- Primary [facility] Diagnosis Closed nondisplaced fracture of greater tuberosity of left humerus with routine healing, subsequent encounter- Primary [facility] Diagnosis Closed nondisplaced fracture of greater tuberosity of left humerus with routine healing, subsequent encounter- Primary Pain in left wrist Pain in joint, forearm documented in this encounter [facility] [facility] Diagnosis Closed nondisplaced fracture of greater tuberosity of left humerus with routine healing, subsequent encounter [facility] Diagnosis Closed nondisplaced fracture of greater tuberosity of left humerus with routine healing, subsequent encounter- Primary [facility] Diagnosis Closed nondisplaced fracture of greater tuberosity of left humerus with routine healing, subsequent encounter- Primary [facility] this encounter [facility] Diagnosis Closed nondisplaced fracture of greater tuberosity of left humerus with routine healing, subsequent encounter- Primary [facility] Diagnosis Closed fracture of proximal end of left humerus, unspecified fracture morphology, initial encounter [facility] Diagnosis Closed nondisplaced fracture of greater tuberosity of left humerus with routine healing, subsequent encounter [facility] Diagnosis Closed fracture of proximal end of left humerus, unspecified fracture morphology, initial encounter [facility] Diagnosis Urinary frequency- Primary [facility] Diagnosis Closed nondisplaced fracture of greater tuberosity of left humerus with routine healing, subsequent encounter- Primary documented in this encounter [facility] note* Diagnosis Hyperlipidemia, mixed Mixed hyperlipidemia documented in this encounter [facility] note* Diagnosis Well adult exam- Primary Routine general medical examination at a health care facility Screening for colon cancer Special screening for malignant neoplasms, colon Hyperlipidemia, mixed Mixed hyperlipidemia Recurrent UTI (urinary tract infection) Urinary tract infection, site not specified Gastroesophageal reflux disease without esophagitis Esophageal reflux documented in this encounter [facility] note* Diagnosis Gross hematuria- Primary documented in this encounter [facility] note* Diagnosis Encounter for screening mammogram for breast cancer [facility] Diagnostic Procedure Only (Routine) - Pending Review Specialty Diagnoses / Procedures Referred By Carlee tovar Referred To Contact XR IMAGING Diagnoses Closed fracture of proximal end of left humerus, unspecified fracture morphology, initial encounter Procedures XR SHOULDER GENERAL 3V OR MORE AP/TRUE AP/OTHER LEFT RADEX SHOULDER COMPLETE MINIMUM 2 VIEWS Gaviota Gonsalves PA-C [address] [place] [address] Xr Imaging [place] [address] Referral ID Status Reason Start Date Expiration Date Visits Requested Visits Authorized [id number] Pending Review Auto-Generat ed Referral 01/11/2023 02/10/2024 1 1 [facility] - Pending Review Specialty Diagnoses / Procedures Referred By Carlee tovar Referred To Contact Physical Therapy Diagnoses Closed nondisplaced fracture of greater tuberosity of left humerus with routine healing, subsequent encounter Procedures CONSULT TO PHYSICAL THERAPY Gaviota Gonsalves PA-C [address] [place] [id number] Referral ID Status Reason Start Date Expiration Date V isits Requested Visits Authorized [id number] Pending Review 01/16/2023 04/16/2023 1 1 [facility] for referral (narrative)* Diagnostic Procedure Only (Routine) - Pending Review Specialty Diagnoses / Procedures Referred By Contac t Referred To Contact XR IMAGING Diagnoses Closed nondisplaced fracture of greater tuberosity of left humerus with routine healing, subsequent encounter Procedures XR SHOULDER GENERAL 3V OR MORE AP/TRUE AP/OTHER LEFT RADEX SHOULDER COMPLETE MINIMUM 2 VIEWS Gaviota Gonsalves PA-C [address] [place] [address] [place] [address] Referral ID Status Reason Start Date Expiration Date Visits Requested Visits Authorized [id number] Pending Review Auto-Generat ed Referral 01/25/2023 02/24/2024 1 1 [facility] for referral (narrative)* Diagnostic Procedure Only (Routine) - Pending Review Specialty Diagnoses / Procedures Referred By Contac t Referred To Contact XR IMAGING Diagnoses Pain in left wrist Procedures XR WRIST GENERAL 3V PA/LAT/OBL LEFT RADEX WRIST COMPLETE MINIMUM 3 VIEWS Gaviota Gonsalves PA-C [address] [place] [address] [place] [address] Referral ID Status Reason Start Date Expiration Date Visits Requested Visits Authorized [id number] Pending Review Auto-Generat ed Referral 01/30/2023 02/29/2024 1 1 [facility] for referral (narrative)* Diagnostic Procedure Only (Routine) - Closed Specialty Diagnoses / Procedures Referred By Contac t Referred To Contact XR IMAGING Diagnoses Closed fracture of proximal end of left humerus, unspecified fracture morphology, initial encounter Procedures XR SHOULDER GENERAL 3V OR MORE AP/TRUE AP/OTHER LEFT RADEX SHOULDER COMPLETE MINIMUM 2 VIEWS Gaviota Gonsalves PA-C [address] [place] [address] [place] [address] Referral ID Status Reason Start Date Expiration Date V isits Requested Visits Authorized [id number] Closed Auto-Generate d Referral 01/11/2023 02/10/2024 1 1 [facility] for referral (narrative)* Diagnostic Procedure Only (Routine) - Closed Specialty Diagnoses / Procedures Referred By Mikeac t Referred To Contact XR IMAGING Diagnoses Closed nondisplaced fracture of greater tuberosity of left humerus with routine healing, subsequent encounter Procedures XR SHOULDER GENERAL 3V OR MORE AP/TRUE AP/OTHER LEFT RADEX SHOULDER COMPLETE MINIMUM 2 VIEWS Gaviota Gonsalves PA-C [address] [place] [address] [place] [id number] Referral ID Status Reason Start Date Expiration Date V isits Requested Visits Authorized [id number] Closed Auto-Generate d Referral 01/25/2023 02/24/2024 1 1 [facility] for referral (narrative)* Diagnostic Procedure Only (Routine) - Closed Specialty Diagnoses / Procedures Referred By Carlee tovar Referred To Contact XR IMAGING Diagnoses Closed fracture of proximal end of left humerus, unspecified fracture morphology, initial encounter Procedures XR SHOULDER LIMITED 2V AP/TRUE AP LEFT RADEX SHOULDER COMPLETE MINIMUM 2 VIEWS Gaviota Gonsalves PA-C [address] [place] [address] [place] [id number] Referral ID Status Reason Start Date Expiration Date V isits Requested Visits Authorized [id number] Closed Auto-Generate d Referral 01/02/2023 02/01/2024 1 1 [facility] for referral (narrative)* Diagnostic Procedure Only (Routine) - Pending Review Specialty Diagnoses / Procedures Referred By Carlee t Referred To Contact BR IMAGING Diagnoses Encounter for screening mammogram for breast cancer Procedures COLTON SCREENING W SHAWN SCREENING DIGITAL BREAST TOMOSYNTHESIS BI SCREENING MAMMOGRAPHY BI 2-VIEW BREAST INC Gurdeep Garcia L, DO [address] [place] [address] [facility] Imaging [address] [place] [address] Referral ID Status Reason Start Date Expiration Date Visits Requested Visits Authorized [id number] Pending Review Auto-Generat ed Referral 05/24/2023 06/22/2024 1 1 [facility] for visit Narrative* Diagnostic Procedure Only (Routine) - Closed Specialty Diagnoses / Procedures Referred By Contac t Referred To Contact XR IMAGING Diagnoses Closed fracture of proximal end of left humerus, unspecified fracture morphology, initial encounter Procedures XR SHOULDER GENERAL 3V OR MORE AP/TRUE AP/OTHER LEFT RADEX SHOULDER COMPLETE MINIMUM 2 VIEWS Gaviota Gonsalves PA-C [address] [place] [address] [place] [id number] Referral ID Status Reason Start Date Expiration Date V isits Requested Visits Authorized [id number] Closed Auto-Generate d Referral 01/11/2023 02/10/2024 1 1 [facility] for visit Narrative* Diagnostic Procedure Only (Routine) - Closed Specialty Diagnoses / Procedures Referred By Contac t Referred To Contact XR IMAGING Diagnoses Closed nondisplaced fracture of greater tuberosity of left humerus with routine healing, subsequent encounter Procedures XR SHOULDER GENERAL 3V OR MORE AP/TRUE AP/OTHER LEFT RADEX SHOULDER COMPLETE MINIMUM 2 VIEWS Gaviota Gonsalves PA-C [address] [place] [address] Xr Imaging [facility] Referral ID Status Reason Start Date Expiration Date V isits Requested Visits Authorized [id number] Closed Auto-Generate d Referral 01/25/2023 02/24/2024 1 1 [facility] for visit Narrative* Diagnostic Procedure Only (Routine) - Closed Specialty Diagnoses / Procedures Referred By Contac t Referred To Contact XR IMAGING Diagnoses Closed fracture of proximal end of left humerus, unspecified fracture morphology, initial encounter Procedures XR SHOULDER LIMITED 2V AP/TRUE AP LEFT RADEX SHOULDER COMPLETE MINIMUM 2 VIEWS Gaviota Gonsalves PA-C [address] [place] [address] [place] [id number] Referral ID Status Reason Start Date Expiration Date V isits Requested Visits Authorized [id number] Closed Auto-Generate d Referral 01/02/2023 02/01/2024 1 1 [facility] Advance Directives No Advanced Directives Records FoundDocuments on File Type Date Recorded 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 Advance Directive(s) 08/13/2020 9:40 AM Reason for Referral Specialty Diagnoses / Procedures Referred By Contac t Referred To Contact CT IMAGING Diagnoses Right flank pain Procedures CT FLANK WO IVCON CT ABD & PELVIS W/O CONTRAST Barbara Erwin, POWDER COAT PAINTER.MANAGER AUDIT [address] [place] [address] Ct Imaging Referral ID Status Reason Start Date Expiration Date Visits Requested Visits Authorized [id number] Authorized Auto-Generat ed Referral 01/04/2022 02/18/2022 1 1 Specialty Diagnoses / Procedures Referred By Contac t Referred To Contact Gynecology Diagnoses Well adult exam Procedures CONSULT TO GYNECOLOGY OFFICE/OUTPATIENT [facility] 60-74 MINUTES Mercedes Mitchell, POWDER COAT PAINTER.MANAGER AUDIT [address] [place] [address] Referral ID Status Reason Start Date Expiration Date Visits Requested Visits Authorized [id number] Authorized PCP Requested Referral Auto-Generate d Referral 04/21/2023 04/20/2024 1 1 Medications Administered Section Inactive Administered Medications - up to 3 most recent administrations Medication Order MAR Action Action Date Dose Rate Site cefTRIAXone 1 g intramuscular injection (ROCEPHIN) 1 g, INTRAMUSCULAR, ONCE, 1 dose, On Aura 10/20/22 at 1130, ., Please document the antimicrobial indication: Empiric Given 10/20/2022 11:27 AM EDT 1 g Buttocks, Left Summary Purpose Family History No Family History Records FoundNo Family History Records Found Additional Source Comments Source Comments (unrecognize d section and content) In the event this informatio n is protected by the Federal Confidentiality of Alcohol and Drug Abuse Patient Records regulations: The Federal rules restrict any use of the information to criminally investigate or prosecute any alcohol or drug abuse patient.[facility] the event this information is protected by the Federal Confidentiality of Alcohol and Drug Abuse Patient Records regulations: The Federal rules restrict any use of the information to criminally investigate or prosecute any alcohol or drug abuse patient.[facility] the event this information is protected by the Federal Confidentiality of Alcohol and Drug Abuse Patient Records regulations: The Federal rules restrict any use of the information to criminally investigate or prosecute any alcohol or drug abuse patient.[facility] the event this information is protected by the Federal Confidentiality of Alcohol and Drug Abuse Patient Records regulations: The Federal rules restrict any use of the information to criminally investigate or prosecute any alcohol or drug abuse patient.[facility] the event this information is protected by the Federal Confidentiality of Alcohol and Drug Abuse Patient Records regulations: The Federal rules restrict any use of the information to criminally investigate or prosecute any alcohol or drug abuse patient.[facility] the event this information is protected by the Federal Confidentiality of Alcohol and Drug Abuse Patient Records regulations: The Federal rules restrict any use of the information to criminally investigate or prosecute any alcohol or drug abuse patient.[facility] the event this information is protected by the Federal Confidentiality of Alcohol and Drug Abuse Patient Records regulations: The Federal rules restrict any use of the information to criminally investigate or prosecute any alcohol or drug abuse patient.[facility] the event this information is protected by the Federal Confidentiality of Alcohol and Drug Abuse Patient Records regulations: The Federal rules restrict any use of the information to criminally investigate or prosecute any alcohol or drug abuse patient.[facility] the event this information is protected by the Federal Confidentiality of Alcohol and Drug Abuse Patient Records regulations: The Federal rules restrict any use of the information to criminally investigate or prosecute any alcohol or drug abuse patient.[facility] the event this information is protected by the Federal Confidentiality of Alcohol and Drug Abuse Patient Records regulations: The Federal rules restrict any use of the information to criminally investigate or prosecute any alcohol or drug abuse patient.[facility] the event this information is protected by the Federal Confidentiality of Alcohol and Drug Abuse Patient Records regulations: The Federal rules restrict any use of the information to criminally investigate or prosecute any alcohol or drug abuse patient.[facility] the event this information is protected by the Federal Confidentiality of Alcohol and Drug Abuse Patient Records regulations: The Federal rules restrict any use of the information to criminally investigate or prosecute any alcohol or drug abuse patient.[facility] Center[facility] the event this information is protected by the Federal Confidentiality of Alcohol and Drug Abuse Patient Records regulations: The Federal rules restrict any use of the information to criminally investigate or prosecute any alcohol or drug abuse patient.[facility] Center[facility] the event this information is protected by the Federal Confidentiality of Alcohol and Drug Abuse Patient Records regulations: The Federal rules restrict any use of the information to criminally investigate or prosecute any alcohol or drug abuse patient.[facility] the event this information is protected by the Federal Confidentiality of Alcohol and Drug Abuse Patient Records regulations: The Federal rules restrict any use of the information to criminally investigate or prosecute any alcohol or drug abuse patient.[facility] Center[facility] the event this information is protected by the Federal Confidentiality of Alcohol and Drug Abuse Patient Records regulations: The Federal rules restrict any use of the information to criminally investigate or prosecute any alcohol or drug abuse patient.[facility] CenterIn the event this information is protected by the Federal Confidentiality of Alcohol and Drug Abuse Patient Records regulations: The Federal rules restrict any use of the information to criminally investigate or prosecute any alcohol or drug abuse patient.[facility] CenterIn the event this information is protected by the Federal Confidentiality of Alcohol and Drug Abuse Patient Records regulations: The Federal rules restrict any use of the information to criminally investigate or prosecute any alcohol or drug abuse patient.[facility] CenterIn the event this information is protected by the Federal Confidentiality of Alcohol and Drug Abuse Patient Records regulations: The Federal rules restrict any use of the information to criminally investigate or prosecute any alcohol or drug abuse patient.[facility] CenterIn the event this information is protected by the Federal Confidentiality of Alcohol and Drug Abuse Patient Records regulations: The Federal rules restrict any use of the information to criminally investigate or prosecute any alcohol or drug abuse patient.[facility] CenterIn the event this information is protected by the Federal Confidentiality of Alcohol and Drug Abuse Patient Records regulations: The Federal rules restrict any use of the information to criminally investigate or prosecute any alcohol or drug abuse patient.[facility] CenterIn the event this information is protected by the Federal Confidentiality of Alcohol and Drug Abuse Patient Records regulations: The Federal rules restrict any use of the information to criminally investigate or prosecute any alcohol or drug abuse patient.[facility] CenterIn the event this information is protected by the Federal Confidentiality of Alcohol and Drug Abuse Patient Records regulations: The Federal rules restrict any use of the information to criminally investigate or prosecute any alcohol or drug abuse patient.[facility] CenterIn the event this information is protected by the Federal Confidentiality of Alcohol and Drug Abuse Patient Records regulations: The Federal rules restrict any use of the information to criminally investigate or prosecute any alcohol or drug abuse patient.[facility] CenterIn the event this information is protected by the Federal Confidentiality of Alcohol and Drug Abuse Patient Records regulations: The Federal rules restrict any use of the information to criminally investigate or prosecute any alcohol or drug abuse patient.[facility] Center[facility] the event this information is protected by the Federal Confidentiality of Alcohol and Drug Abuse Patient Records regulations: The Federal rules restrict any use of the information to criminally investigate or prosecute any alcohol or drug abuse patient.[facility] Center[facility] the event this information is protected by the Federal Confidentiality of Alcohol and Drug Abuse Patient Records regulations: The Federal rules restrict any use of the information to criminally investigate or prosecute any alcohol or drug abuse patient.[facility] CenterIn the event this information is protected by the Federal Confidentiality of Alcohol and Drug Abuse Patient Records regulations: The Federal rules restrict any use of the information to criminally investigate or prosecute any alcohol or drug abuse patient.[facility] CenterIn the event this information is protected by the Federal Confidentiality of Alcohol and Drug Abuse Patient Records regulations: The Federal rules restrict any use of the information to criminally investigate or prosecute any alcohol or drug abuse patient.[facility] CenterIn the event this information is protected by the Federal Confidentiality of Alcohol and Drug Abuse Patient Records regulations: The Federal rules restrict any use of the information to criminally investigate or prosecute any alcohol or drug abuse patient.[facility] CenterIn the event this information is protected by the Federal Confidentiality of Alcohol and Drug Abuse Patient Records regulations: The Federal rules restrict any use of the information to criminally investigate or prosecute any alcohol or drug abuse patient.[facility] CenterIn the event this information is protected by the Federal Confidentiality of Alcohol and Drug Abuse Patient Records regulations: The Federal rules restrict any use of the information to criminally investigate or prosecute any alcohol or drug abuse patient.[facility] CenterIn the event this information is protected by the Federal Confidentiality of Alcohol and Drug Abuse Patient Records regulations: The Federal rules restrict any use of the information to criminally investigate or prosecute any alcohol or drug abuse patient.[facility]In the event this information is protected by the Federal Confidentiality of Alcohol and Drug Abuse Patient Records regulations: The Federal rules restrict any use of the information to criminally investigate or prosecute any alcohol or drug abuse patient.[facility] CenterIn the event this information is protected by the Federal Confidentiality of Alcohol and Drug Abuse Patient Records regulations: The Federal rules restrict any use of the information to criminally investigate or prosecute any alcohol or drug abuse patient.[facility] CenterIn the event this information is protected by the Federal Confidentiality of Alcohol and Drug Abuse Patient Records regulations: The Federal rules restrict any use of the information to criminally investigate or prosecute any alcohol or drug abuse patient.[facility] CenterIn the event this information is protected by the Federal Confidentiality of Alcohol and Drug Abuse Patient Records regulations: The Federal rules restrict any use of the information to criminally investigate or prosecute any alcohol or drug abuse patient.[facility] CenterIn the event this information is protected by the Federal Confidentiality of Alcohol and Drug Abuse Patient Records regulations: The Federal rules restrict any use of the information to criminally investigate or prosecute any alcohol or drug abuse patient.[facility] CenterIn the event this information is protected by the Federal Confidentiality of Alcohol and Drug Abuse Patient Records regulations: The Federal rules restrict any use of the information to criminally investigate or prosecute any alcohol or drug abuse patient.[facility] CenterIn the event this information is protected by the Federal Confidentiality of Alcohol and Drug Abuse Patient Records regulations: The Federal rules restrict any use of the information to criminally investigate or prosecute any alcohol or drug abuse patient.[facility] CenterIn the event this information is protected by the Federal Confidentiality of Alcohol and Drug Abuse Patient Records regulations: The Federal rules restrict any use of the information to criminally investigate or prosecute any alcohol or drug abuse patient.[facility] CenterIn the event this information is protected by the Federal Confidentiality of Alcohol and Drug Abuse Patient Records regulations: The Federal rules restrict any use of the information to criminally investigate or prosecute any alcohol or drug abuse patient.[facility] CenterIn the event this information is protected by the Federal Confidentiality of Alcohol and Drug Abuse Patient Records regulations: The Federal rules restrict any use of the information to criminally investigate or prosecute any alcohol or drug abuse patient.[facility] CenterIn the event this information is protected by the Federal Confidentiality of Alcohol and Drug Abuse Patient Records regulations: The Federal rules restrict any use of the information to criminally investigate or prosecute any alcohol or drug abuse patient.[facility] CenterIn the event this information is protected by the Federal Confidentiality of Alcohol and Drug Abuse Patient Records regulations: The Federal rules restrict any use of the information to criminally investigate or prosecute any alcohol or drug abuse patient.[facility] Reason for Visit (unrecogniz ed section and content) Specialty Diagnoses / Procedures Referred By Carlee tovar Referred To Contact Physical Therapy Diagnoses Closed nondisplaced fracture of greater tuberosity of left humerus with routine healing, subsequent encounter Procedures CONSULT TO PHYSICAL THERAPY Gaviota Gonsalves PA-C [address] [place] [address] [place] [address] Referral ID Status Reason Start Date Expiration Date V isits Requested Visits Authorized [id number] Authorized 05/22/2022 05/21/2023 30 30 Reason Comments Physical Therapy Reason Comments Refill Request Reason Comments Trauma wasp sting R hand mi ddle figer x2 days Reason Comments Yearly Exam Reason Comments Skin Check Yearly skin exam Reason Onset Date Comments Refill Request 11/18/2021 Reason Comments Patient Question Reason Comments Results US/Labs Reason Comments UTI Flank Pain Specialty Diagnoses / Procedures Referred By Contac t Referred To Contact Urology Diagnoses Bilateral flank pain Recurrent UTI (urinary tract infection) Procedures CONSULT TO UROLOGY OFFICE/OUTPATIENT NEW HIGH MDM 60-74 MINUTES Mercedes Cooper APRN.MANAGER AUDIT [address] [place] [address] Referral ID Status Reason Start Date Expiration Date V isits Requested Visits Authorized [id number] Closed PCP Requested Referral 12/23/2021 12/23/2022 1 1 Reason Onset Date Comments Refill Request 02/10/2022 Reason Comments Results Orders Reason Comments Results Reason Comments Patient Update Reason Comments UTI Frequency, burning, blood in urine x 5 days Reason Comments Diarrhea Reason Comments Uti - Re-occurring Reason Comments Urinary Problem Pt reported frequenc y x2 wks, hematuria onset AM, back pain. Reason Comments UTI Reason Comments Fracture 3 weeks post fractur e R proximal humerus. 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 Crane Operator Relationship Specialty Start Date End Date Gurdeep Pascual, DO [address] [place] [address] PCP - General Family Practice 02/09/16 Cinder Dump Crane Operator Relationship Specialty Start Date End Date Gurdeep Pascual DO [address] [place] [address] PCP - General Family Practice 02/09/16 Cinder Dump Crane Operator Relationship Specialty Start Date End Date Gurdeep Pascual, DO [address] [place] [address] PCP - General Family Practice 02/09/16 Cinder Dump Crane Operator Relationship Specialty Start Date End Date Gurdeep Pascual, DO [address] [place] [address] PCP - General Family Practice 02/09/16 Cinder Dump Crane Operator Relationship Specialty Start Date End Date Gurdeep Pascual DO [address] [place] [address] PCP - General Family Practice 02/09/16 Cinder Dump Crane Operator Relationship Specialty Start Date End Date Gurdeep Pascual, DO [address] [facility] [place] [address] PCP - General Family Practice 02/09/16 Cinder Dump Crane Operator Relationship Specialty Start Date End Date Gurdeep Pascual, DO [address] [facility] [place] [address] PCP - General Family Practice 02/09/16 Cinder Dump Crane Operator Relationship Specialty Start Date End Date Gurdeep Pascual, DO [address] [facility] [place] [address] PCP - General Family Medicine 02/09/16 Cinder Dump Crane Operator Relationship Specialty Start Date End Date Gurdeep Pascual, DO [address] [facility] [place] [place] [address] PCP - General Family Medicine 02/09/16 Cinder Dump Crane Operator Relationship Specialty Start Date End Date Gurdeep Pascual, DO [address] [facility] [place] [address] PCP - General Family Medicine 02/09/16 Cinder Dump Crane Operator Relationship Specialty Start Date End Date Gurdeep Pascual, DO [address] [facility] [place] [address] PCP - General Family Medicine 02/09/16 Cinder Dump Crane Operator Relationship Specialty Start Date End Date Gurdeep Pascual, DO [address] [facility] [place] [address] PCP - General Family Medicine 02/09/16 Cinder Dump Crane Operator Relationship Specialty Start Date End Date Gurdeep Pascual, DO [address] [facility] [place] [address] PCP - General Family Medicine 02/09/16 Cinder Dump Crane Operator Relationship Specialty Start Date End Date Gurdeep Pascual, DO [address] [facility] [place] [address] PCP - General Family Medicine 02/09/16 Cinder Dump Crane Operator Relationship Specialty Start Date End Date Gurdeep Pascual, DO [address] [facility] [place] [address] PCP - General Family Medicine 02/09/16 Cinder Dump Crane Operator Relationship Specialty Start Date End Date Gurdeep Pascual, DO [address] [facility] [place] [address] PCP - General Family Medicine 02/09/16 Cinder Dump Crane Operator Relationship Specialty Start Date End Date Gurdeep Pascual DO [address] [facility] [place] [address] PCP - General Family Medicine 02/09/16 Cinder Dump Crane Operator Relationship Specialty Start Date End Date Gurdeep Pascual DO [address] [facility] [place] [address] PCP - General Family Medicine 02/09/16 Cinder Dump Crane Operator Relationship Specialty Start Date End Date Gurdeep Pascual DO [address] [facility] [place] [address] PCP - General Family Medicine 02/09/16 Cinder Dump Crane Operator Relationship Specialty Start Date End Date Gurdeep Pascual DO [address] [facility] [place] [address] PCP - General Family Medicine 02/09/16 Cinder Dump Crane Operator Relationship Specialty Start Date End Date Gurdeep Pascual DO [address] [facility] [place] [address] PCP - General Family Medicine 02/09/16 Cinder Dump Crane Operator Relationship Specialty Start Date End Date Gurdeep Pascual DO [address] [facility] [place] [address] PCP - General Family Medicine 02/09/16 Cinder Dump Crane Operator Relationship Specialty Start Date End Date Gurdeep Pascual DO [address] [facility] [place] [address] PCP - General Family Medicine 02/09/16 Cinder Dump Crane Operator Relationship Specialty Start Date End Date Gurdeep Pascual DO [address] [facility] [place] [address] PCP - General Family Medicine 02/09/16 Cinder Dump Crane Operator Relationship Specialty Start Date End Date Gurdeep Pascual DO [address] [facility] [place] [address] PCP - General Family Medicine 02/09/16 Cinder Dump Crane Operator Relationship Specialty Start Date End Date Gurdeep Pascual DO [address] [facility] [place] [address] PCP - General Family Medicine 02/09/16 Cinder Dump Crane Operator Relationship Specialty Start Date End Date Gurdeep Pascual DO [address] [facility] [place] [address] PCP - General Family Medicine 02/09/16 Cinder Dump Crane Operator Relationship Specialty Start Date End Date Gurdeep Pascual, [address] [facility] [place] [address] PCP - General Family Medicine 02/09/16 Cinder Dump Crane Operator Relationship Specialty Start Date End Date Gurdeep Pascual DO [address] [facility] [place] [address] PCP - General Family Medicine 02/09/16 Cinder Dump Crane Operator Relationship Specialty Start Date End Date Gurdeep Pascual DO [address] [place] [address] PCP - General Family Medicine 02/09/16 Cinder Dump Crane Operator Relationship Specialty Start Date End Date Gurdeep Pascual DO [address] [facility] [place] [address] PCP - General Family Medicine 02/09/16 Cinder Dump Crane Operator Relationship Specialty Start Date End Date Gurdeep Pascual DO [address] [facility], [place] [id number] PCP - General Family Medicine 02/09/16 Cinder Dump Crane Operator Relationship Specialty Start Date End Date Gurdeep Pascual, DO [address] [place], [place] [address] PCP - General Family Medicine 02/09/16 INFORMATION SOURCE (unrecogn ized section and content) DATE CREATED AUTHOR AUTHOR'S ORGANIZ ATION 06/02/2023 [facility] FOR RECORDS PERTAINING TO PATIENTS WHO ARE OR HAVE BEEN ENROLLED IN A CHEMICAL DEPENDENCY/SUBSTANCEABUSE PROGRAM, SOME INFORMATION MAY BE OMITTED. This clinical summary was aggregated from multiple sources. Caution should be exercised in using it in the provision of clinical care. This summary normalizes information from multiple sources, and as a consequence, information in this document may materially change the coding, format and clinical context of patient data. In addition, data may be omitted in some cases. CLINICAL DECISIONS SHOULD BE BASED ON THE PRIMARY CLINICAL RECORDS. [facility]. provides no warranty or guarantee of the accuracy or completeness of information in this document.
[2023-06-28 12:16] LABS: Absolute Lymphocyte Count 2.03 X10^3/uL (0.83-4.51); Absolute Neutrophil Count 4.4 X10^3/uL (2.0-7.7); Basophil# 0.02 X10^3/uL; Basophil% 0.3 % (0-1); Hematocrit 41.1 % (37-47); Hemoglobin 14.2 g/dL (12.0-15.0); Lymphocyte # 2.03 X10^3/ul (0.83-4.51); Lymphocyte % 28.6 % (19-41); Mean Corp Hgb Conc 34.5 g/dL (32-36); Mean Corpuscular Hgb 30.5 pg (27.0-32.0); Mean Corpuscular Volume 88.2 fL (81-99); Mean Platelet Vol. 9.9 fl (6.2-12.0); Monocyte# 0.57 X10^3/uL; NRBC Flagged by Analyzer 0 % (0-5); Neutrophil # 4.44 X10^3/uL (2.7-7.7); Neutrophil % 62.5 % (47-70); Platelet Count 327 K/mm3 (150-450); RBC Distribution Width CV 13.1 % (11.6-14.6); RBC Distribution Width SD 41.7 fl (35.1-43.9); Red Blood Count 4.66 M/mm3 (4.2-5.4); White Blood Count 7.1 K/mm3 (4.4-11.0)
[2023-06-28 12:34] LABS: Ferritin 231 ng/mL (8-252); T4 Free Direct 0.88 ng/dL (0.76-1.46); Thyroid Stim Hormone (TSH) 1.65 uIU/mL (0.358-3.74)
[2023-06-28 12:51] LABS: Vitamin D,25 Hydroxy 50.9 ng/mL
[2023-07-03 11:08] LABS: Vitamin D 1,25-Dihydroxy 34.4 pg/mL (24.8-81.5)
[2023-07-05 09:08] LABS: Zinc, Plasma or Serum 89 ug/dL (44-115)
== END | disposition home or self-care (01) ==
PROVIDERS: PCP Student in an Organized Health Care Education/Training Program; Referring Provider Dermatology; Visit Provider Dermatology
DX: L64.8 Other androgenic alopecia (principal)
CPT/HCPCS: 36415; 82306; 82652; 82728; 84439; 84443; 84630; 85025